=== PATIENT | male | born 1940 | race Caucasian/White ===

== ENCOUNTER 2016-06-30 02:26 | Emergency (ER) | payer MEDICARE, BC ==
[2016-06-30] MEDS ORDERED: Nitroglycerin 0.4 MG Tab.SL SL ONE (02:37)
[2016-06-30] MEDS ORDERED: Ondansetron 4 MG/2 ML SDV IV ONE (02:41)
[2016-06-30] MEDS ORDERED: Morphine 2 MG/ML Syringe IVPUSH ONE (02:41)
--- NOTE | 2016-06-30 02:41 | EDM.PDOC ---
{null, ED HPI GENERAL MEDICAL PROBLEM - General Chief Complaint: Cardiovascular Problem Stated Complaint: CHEST PAINS Time Seen by Provider: 06/30/16 02:39 Source of Information: Reports: Patient History Limitations: Reports: No Limitations - History of Present Illness INITIAL COMMENTS - FREE TEXT/NARRATIVE: woke up with palpitation and chest pain going up his jaw. 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 not helping. h/o CAD & A.F last stent 3 years ago, had stent prior and angio 1995. Anterior Chest Pain Score (Numeric/FACES): 5 - Related Data Allergies Allergy/AdvReac Type Severity Reaction Status Date / Time naproxen Allergy Hives Verified 06/30/16 02:51 propoxyphene Allergy Hives Verified 06/30/16 02:51 Home Meds: Home Meds Amiodarone HCl [Amiodarone HCl] 200 mg PO DAILY 01/10/14 [History] Aspirin [Children's Aspirin] 81 mg PO DAILY 01/10/14 [History] EPINEPHrine [Epipen] 0.3 mg IM ASDIRECTED PRN 01/10/14 [History] Fish Oil/Sun-3 Fatty Acids [Fish Oil] 2 cap PO DAILY 01/10/14 [History] LORazepam [Ativan] 1 mg PO DAILY PRN 01/10/14 [History] Metoprolol Tartrate [Lopressor] 25 mg PO BID 01/10/14 [History] Multivitamin [Multi Vitamin Daily] 1 tab PO DAILY PRN 01/10/14 [History] Omeprazole [Prilosec] 20 mg PO DAILY 01/10/14 [History] Rosuvastatin [Crestor] 40 mg PO DAILY 01/10/14 [History] Sildenafil [Viagra] 100 mg PO ASDIRECTED PRN 01/10/14 [History] Acetaminophen [Tylenol Arthritis Pain] 650 mg PO 01/16/14 [History] Fluocinolone Acetonide [Synalar 0.025% Cream] 15 gm .XX 01/16/14 [History] [id number]-Yplodoi-Vorb 149-Hyal [Glucosamine Chondroitin Complx] 1 each PO [History] Social & Family History - Tobacco Use Smoking Status *Q: Never Smoker Second Hand Smoke Exposure: No - Alcohol Use Days Per Week of Alcohol Use: 1 Number of Drinks Per Day: 1 Total Drinks Per Week: 1 - Recreational Drug Use Recreational Drug Use: No ED ROS GENERAL - Review of Systems Review Of Systems: ROS reveals no pertinent complaints other than HPI. ED EXAM, GENERAL - Physical Exam Exam: See Below Exam Limited By: No Limitations General Appearance: Alert, WD/WN, Anxious, Mild Distress Ears: Hearing Grossly Normal Throat/Mouth: Normal Voice, No Airway Compromise Head: Atraumatic Neck: Non-Tender, Full Range of Motion Respiratory/Chest: No Respiratory Distress Cardiovascular: Regular Rate, Rhythm GI/Abdominal: Soft, Non-Tender Neurological: Alert, Oriented, Normal Cognition, Normal Gait, No Motor/Sensory Deficits Psychiatric: Anxious Skin Exam: Warm, Dry Lymphatic: No Adenopathy Course - Vital Signs Last Recorded V/S: Last Vital Signs Temp 36.3 C 06/30/16 03:30 Pulse 70 06/30/16 03:30 Resp 16 06/30/16 03:30 BP 125/64 06/30/16 03:30 Pulse Ox 100 06/30/16 03:30 - Orders/Labs/Meds Orders: Active Orders 24 hr Category Date Time Status EKG Documentation Completion [RC] ROUTINE Care 06/30/16 06:00 Active EKG Documentation Completion [RC] STAT Care 06/30/16 02:32 Active Labs: Laboratory Tests 06/30/16 06/30/16 06/30/16 Range/Units 02:35 02:35 06:00 WBC 8.1 (5.0-10.0) 10^3/uL RBC 4.37 L (4.6-6.2) 10^6/uL Hgb 14.2 (14.0-18.0) g/dL Hct 42.2 (40.0-54.0) % MCV 96.6 (80-100) fL MCH 32.5 (27.0-34.0) pg MCHC 33.6 (33.0-35.0) g/dL Plt Count 115 L (150-450) 10^3/uL Neut % (Auto) 36.8 L (42.2-75.2) % Lymph % (Auto) 48.2 (20.5-50.1) % [place] % (Auto) 9.7 H (2-8) % Eos % (Auto) 5.1 H (1.0-3.0) % Baso % (Auto) 0.2 (0.0-1.0) % Sodium 140 (135-145) mmol/L Potassium 4.2 (3.6-5.0) mmol/L Chloride 104 (101-111) mmol/L Carbon Dioxide 27.0 (21.0-31.0) mmol/L Anion Gap 13.2 BUN 16 (7-18) mg/dL Creatinine 1.1 (0.6-1.3) mg/dL Est Cr Clr Drug Dosing 74.53 mL/min Estimated GFR (MDRD) > 60 BUN/Creatinine Ratio 14.54 Glucose 104 (74-105) mg/dL Calcium 9.5 (8.4-10.2) mg/dl Total Bilirubin 0.6 (0.2-1.0) mg/dL AST 25 (10-42) IU/L ALT 14 (10-60) IU/L Alkaline Phosphatase 58 (42-121) IU/L Troponin I < 0.02 < 0.02 (0.00-0.02) ng/ml Total Protein 7.4 (6.7-8.2) g/dl Albumin 4.3 (3.2-5.5) g/dl Globulin 3.1 Albumin/Globulin Ratio 1.39 Meds: Medications Discontinued Medications Generic Name Dose Route Start Last Admin Trade Name Freq PRN Reason Stop Dose Admin Hydromorphone HCl 1 mg 06/30/16 03:29 06/30/16 03:35 Dilaudid IVPUSH 06/30/16 03:30 1 mg ONETIME ONE Administration Hydromorphone HCl 1 mg 06/30/16 04:39 06/30/16 04:47 Dilaudid IVPUSH 06/30/16 04:40 1 mg ONETIME ONE Administration Lorazepam 1 mg 06/30/16 03:03 06/30/16 03:10 Ativan IVPUSH 06/30/16 03:04 1 mg ONETIME ONE Administration Lorazepam 1 mg 06/30/16 04:39 06/30/16 04:45 Ativan IVPUSH 06/30/16 04:40 1 mg ONETIME ONE Administration Morphine Sulfate 2 mg 06/30/16 02:41 06/30/16 02:49 Morphine IVPUSH 06/30/16 02:42 2 mg ONETIME ONE Administration Nitroglycerin 0.4 mg 06/30/16 02:37 06/30/16 02:40 Nitrostat SL 06/30/16 02:38 0.4 mg ONETIME ONE Administration Ondansetron HCl 4 mg 06/30/16 02:41 06/30/16 02:46 Zofran IV 06/30/16 02:42 4 mg ONETIME ONE Administration - Re-Assessments/Exams Free Text/Narrative Re-Assessment/Exam: 06/30/16 03:14 results discussed with Pt & spouse who states Pt been under lot of stress whole week. had 3 x funerals for close friends and one was from [facility] 06/30/16 06:44 re-exam: still in pain and IV dilaudid not lasting long enough. 06/30/16 07:[address] Hernandez @ who kindly accepted Pt. Departure - Departure Time of Disposition: 07:03 Disposition: DC/Tfer to Acute Hospital 02 Reason for Transfer *Q: Other Condition: good Clinical Impression: Acute coronary syndrome Forms: Interfacility Transfer EMTALA - My Orders Last 24 Hours: My Active Orders 06/30/16 02:32 EKG Documentation Completion [RC] STAT 06/30/16 06:00 EKG Documentation Completion [RC] ROUTINE - Assessment/Plan Last 24 Hours: My Active Orders 06/30/16 02:32 EKG Documentation Completion [RC] STAT 06/30/16 06:00 EKG Documentation Completion [RC] ROUTINE }
[2016-06-30 02:59] LABS: CHLORIDE,CL 104 mmol/L (101-111); SODIUM,NA 140 mmol/L (135-145)
[2016-06-30] MEDS ORDERED: LORazepam 2 MG/ML Syringe IVPUSH ONE ×2 (03:03→04:39)
[2016-06-30] MEDS ORDERED: HYDROmorphone 1 MG/ML Syringe IVPUSH ONE ×3 (03:29→07:04)
[2016-06-30 03:31] VITALS: BP 125/64
--- NOTE | 2016-07-02 10:59 | EKG ---
{null, 06/30/2016 - JUAN A PRUETT - 12-lead EKG showed done on 06/30/2016 at 2:27 shows normal sinus rhythm with heart rate of 67, MO interval of 159. No significant ST elevation or ST depression noted on this 12-lead EKG. Nonspecific ST changes noted on lead V1 and V2. [facility] /[id number] }
--- NOTE | 2016-07-02 13:51 | EKG ---
{null, 06/30/2016 - JUAN A PRUETT - TIME: 6:00 a.m. 12-lead EKG shows normal sinus rhythm with heart rate of 63. P waves noted on lead II. No significant ST elevation or ST depression noted on this 12-lead EKG. [facility] /[id number] }
== END 2016-06-30 07:30 ==
LOC: DL.ED 02:26
DX: I24.9 Acute ischemic heart disease, unspecified (principal); I48.91 Unspecified atrial fibrillation; I25.10 Atherosclerotic heart disease of native coronary artery without angina pectoris; Z88.8 Allergy status to other drugs, medicaments and biological substances; Z79.82 Long term (current) use of aspirin; Z79.899 Other long term (current) drug therapy
CPT/HCPCS: 36415; 71010; 80053; 84484; 85025; 93005; 93010; 96374; 96375; 96376; 99285; J1170; J2060; J2270; J2405; 99284; A9270-GY

== ENCOUNTER 2016-07-14 06:59 | Observation (INO) | payer MEDICARE, BC ==
[2016-07-14] MEDS: Sodium Chloride 0.9% 10 ML Syringe FLUSH PRN ×3 (07:33→11:16)
--- NOTE | 2016-07-14 07:37 | EDM.PDOC ---
ED HPI GENERAL MEDICAL PROBLEM - General Chief Complaint: Chest Pain Stated Complaint: CHEST PAIN Time Seen by Provider: 07/14/16 07:05 Source of Information: Reports: Patient, Old Records, RN, RN Notes Reviewed History Limitations: Reports: No Limitations - History of Present Illness INITIAL COMMENTS - FREE TEXT/NARRATIVE: Complaining of substernal chest pain developed this morning after patient woke with "room spin", dizziness with nausea. Patient became very anxious and had a prior attack so he came to the ER. HE took a nitroglycerin sublingual x1 and became even more dizzy. Patient states he was transferred from here 1 week ago for chest pain and elevated troponin but was discharged home after a negative workup at [facility]. He is scheduled for a cardiac stress test next week. Onset: Today Location: Reports: Chest Severity: Severe Improves with: Reports: None Worsens with: Reports: None Associated Symptoms: Reports: No Other Symptoms Chest Pain Score (Numeric/FACES): 8 - Related Data Allergies Allergy/AdvReac Type Severity Reaction Status Date / Time naproxen Allergy Hives Verified 08/19/16 18:57 propoxyphene Allergy Hives Verified 08/19/16 18:57 Home Meds: Home Meds EPINEPHrine [Epipen 2-Anthony] 0.3 mg IM ASDIRECTED PRN 01/10/14 [History] Fish Oil/[place]-3 Fatty Acids [Fish Oil 1,000 MG] 1 cap PO BID 01/10/14 [History] Metoprolol Tartrate [Lopressor] 25 mg PO BID 01/10/14 [History] Multivitamin [Multi-Vitamin Daily] 1 tab PO DAILY 01/10/14 [History] Omeprazole [Prilosec] 20 mg PO DAILY 01/10/14 [History] Rosuvastatin [Crestor] 40 mg PO DAILY 01/10/14 [History] Sildenafil [Viagra] 100 mg PO ASDIRECTED PRN 01/10/14 [History] Acetaminophen [Tylenol Arthritis Pain] 650 mg PO Q4HR PRN 01/16/14 [History] Fluocinolone Acetonide [Synalar 0.025% Cream] 15 gm .XX DAILY PRN 01/16/14 [ History] [id number]-[id number]-Frmj 149-Hyal [Glucosamine Chondroitin Complx] 1 each PO BID [History] Warfarin [Coumadin] 5 mg PO DAILY 07/14/16 [History] oxyCODONE HCl/Acetaminophen [oxyCODONE-Acetaminophen 5-325] 1 tab PO BID PRN 05/27 [History] Aspirin 81 mg PO DAILY tab.chew 07/15/16 [Rx] LORazepam [Ativan] 1 mg PO BID #30 tablet 07/15/16 [Rx] Methimazole 10 mg PO DAILY 07/16/16 [History] Nitroglycerin [Nitrostat] 0.4 mg SL ASDIRECTED 07/17/16 [History] Past Medical History Cardiovascular History: Reports: Afib, Angina, CAD, High Cholesterol, Hypertension Gastrointestinal History: Reports: GERD Endocrine/Metabolic History: Reports: Hyperthyroidism Social & Family History - Tobacco Use Smoking Status *Q: Former Smoker Used Tobacco, but Quit: No Second Hand Smoke Exposure: No - Caffeine Use Caffeine Use: Reports: Coffee - Alcohol Use Days Per Week of Alcohol Use: 5 Number of Drinks Per Day: 2 Total Drinks Per Week: 10 - Recreational Drug Use Recreational Drug Use: No ED ROS GENERAL - Review of Systems Review Of Systems: ROS reveals no pertinent complaints other than HPI. ED EXAM, GENERAL - Physical Exam Exam: See Below Exam Limited By: No Limitations General Appearance: Anxious Eye Exam: Bilateral Eye: Normal Inspection Ears: Normal External Exam, Normal Canal, Hearing Grossly Normal, Normal TMs Nose: Normal Inspection, Normal Mucosa, No Blood Throat/Mouth: Normal Inspection, Normal Lips, Normal Teeth, Normal Gums, Normal Oropharynx, Normal Voice, No Airway Compromise Head: Atraumatic, Normocephalic Neck: Normal Inspection, Supple, Non-Tender, Full Range of Motion Respiratory/Chest: No Respiratory Distress, Lungs Clear, Normal Breath Sounds, No Accessory Muscle Use, Chest Non-Tender Cardiovascular: Normal Peripheral Pulses, Regular Rate, Rhythm, No Edema, No Gallop, No JVD, No Murmur, No Rub GI/Abdominal: Normal Bowel Sounds, Soft, Non-Tender, No Organomegaly, No Distention, No Abnormal Bruit, No Mass (Male) Exam: Deferred Rectal (Males) Exam: Deferred Back Exam: Normal Inspection, Full Range of Motion, NT Extremities: Normal Inspection, Normal Range of Motion, Non-Tender, Normal Capillary Refill, No Pedal Edema Neurological: Other (lateral gaze nystagmus) Psychiatric: Other (very anxious.) Skin Exam: Warm, Dry, Intact, Normal Color, No Rash EKG INTERPRETATION EKG Date: 07/14/16 Time: 06:58 Rhythm: Other (sinus rhythm) Rate (Beats/Min): 84 [place]: LAD-Left [place] Deviation (borderline) Course - Vital Signs Last Recorded V/S: Last Vital Signs Temp 36.6 C 07/15/16 11:02 Pulse 65 07/15/16 11:02 Resp 20 07/15/16 11:02 BP 147/72 H 07/15/16 11:02 Pulse Ox 95 07/15/16 11:02 - Orders/Labs/Meds Labs: Laboratory Tests 07/14/16 07/14/16 07/14/16 Range/Units 07:06 07:06 07:06 WBC 6.6 (5.0-10.0) 10^3/uL RBC 4.47 L (4.6-6.2) 10^6/uL Hgb 14.3 (14.0-18.0) g/dL Hct 42.8 (40.0-54.0) % MCV 95.7 (80-100) fL MCH 32.0 (27.0-34.0) pg MCHC 33.4 (33.0-35.0) g/dL Plt Count 126 L (150-450) 10^3/uL Neut % (Auto) 37.5 L (42.2-75.2) % Lymph % (Auto) 49.1 (20.5-50.1) % [place] % (Auto) 7.9 (2-8) % Eos % (Auto) 5.2 H (1.0-3.0) % Baso % (Auto) 0.3 (0.0-1.0) % PT (9.0-12.0) SEC INR (0.9-1.2) D-Dimer, Quantitative 109 (0-400) ng/mL Sodium 140 (135-145) mmol/L Potassium 4.1 (3.6-5.0) mmol/L Chloride 105 (101-111) mmol/L Carbon Dioxide 24.0 (21.0-31.0) mmol/L Anion Gap 15.1 BUN 15 (7-18) mg/dL Creatinine 1.0 (0.6-1.3) mg/dL Est Cr Clr Drug Dosing TNP Estimated GFR (MDRD) > 60 BUN/Creatinine Ratio 15.00 Glucose 117 H (74-105) mg/dL Calcium 9.2 (8.4-10.2) mg/dl Total Bilirubin 0.5 (0.2-1.0) mg/dL AST 28 (10-42) IU/L ALT 16 (10-60) IU/L Alkaline Phosphatase 61 (42-121) IU/L Troponin I < 0.02 (0.00-0.02) ng/ml B-Natriuretic Peptide 47 (0-100) pg/ml Total Protein 7.2 (6.7-8.2) g/dl Albumin 4.1 (3.2-5.5) g/dl Globulin 3.1 Albumin/Globulin Ratio 1.32 Amylase 76 (28-100) U/L Lipase 45 (22-51) U/L // Range/Units 07:06 WBC (5.0-10.0) 10^3/uL RBC (4.6-6.2) 10^6/uL Hgb (14.0-18.0) g/dL Hct (40.0-54.0) % MCV (80-100) fL MCH (27.0-34.0) pg MCHC (33.0-35.0) g/dL Plt Count (150-450) 10^3/uL Neut % (Auto) (42.2-75.2) % Lymph % (Auto) (20.5-50.1) % [place] % (Auto) (2-8) % Eos % (Auto) (1.0-3.0) % Baso % (Auto) (0.0-1.0) % PT 10.8 (9.0-12.0) SEC INR 1.1 (0.9-1.2) D-Dimer, Quantitative (0-400) ng/mL Sodium (135-145) mmol/L Potassium (3.6-5.0) mmol/L Chloride (101-111) mmol/L Carbon Dioxide (21.0-31.0) mmol/L Anion Gap BUN (7-18) mg/dL Creatinine (0.6-1.3) mg/dL Est Cr Clr Drug Dosing Estimated GFR (MDRD) BUN/Creatinine Ratio Glucose (74-105) mg/dL Calcium (8.4-10.2) mg/dl Total Bilirubin (0.2-1.0) mg/dL AST (10-42) IU/L ALT (10-60) IU/L Alkaline Phosphatase (42-121) IU/L Troponin I (0.00-0.02) ng/ml B-Natriuretic Peptide (0-100) pg/ml Total Protein (6.7-8.2) g/dl Albumin (3.2-5.5) g/dl Globulin Albumin/Globulin Ratio Amylase (28-100) U/L Lipase (22-51) U/L Meds: Medications Discontinued Medications Generic Name Dose Route Start Last Admin Trade Name Freq PRN Reason Stop Dose Admin Acetaminophen 650 mg 07/14/16 10:31 07/15/16 00:02 Tylenol PO 650 mg Q4H PRN Administration Pain (Mild 1-3)/fever Al Hydroxide/Mg Hydroxide 30 ml 07/14/16 07:50 07/14/16 07:53 Gi Cocktail PO 07/14/16 07:51 30 ml ONETIME ONE Administration Aspirin 81 mg 07/15/16 09:00 07/15/16 10:30 Aspirin PO 81 mg DAILY BRYAN Administration Dexamethasone 12 mg 07/14/16 09:44 07/14/16 09:53 Dexamethasone IVPUSH 07/14/16 09:45 12 mg ONETIME ONE Administration Docusate Sodium 100 mg 07/15/16 10:32 07/15/16 11:12 Colace PO 07/15/16 10:33 100 mg ONETIME ONE Administration Enoxaparin Sodium 40 mg 07/15/16 09:00 07/15/16 10:32 Lovenox SUBCUT 40 mg DAILY BRYAN Administration Sodium Chloride 1,000 mls @ 999 mls/hr 07/14/16 09:03 07/14/16 09:27 Normal Saline IV 07/14/16 10:03 999 mls/hr .BOLUS ONE Administration Sodium Chloride 1,000 mls @ 75 mls/hr 07/14/16 10:45 07/15/16 09:40 Normal Saline IV 75 mls/hr ASDIRECTED BRYAN Infusion Pantoprazole Sodium 40 mg/ 100 mls @ 200 mls/hr 07/14/16 10:42 07/14/16 11:14 Sodium Chloride IV 07/14/16 11:11 200 mls/hr DAILY ONE Administration Lorazepam 1 mg 07/14/16 09:45 07/14/16 09:53 Ativan IVPUSH 07/14/16 09:46 1 mg ONETIME ONE Administration Lorazepam 1 mg 07/14/16 21:00 07/15/16 10:30 Ativan PO 1 mg BID BRYAN Administration Meclizine HCl 25 mg 07/14/16 09:44 07/14/16 09:53 Antivert PO 07/14/16 09:45 25 mg ONETIME ONE Administration Metoprolol Tartrate 25 mg 07/14/16 21:00 07/15/16 10:30 Lopressor PO 25 mg BID BRYAN Administration Morphine Sulfate 4 mg 07/14/16 07:57 07/14/16 08:06 Morphine IVPUSH 07/14/16 07:58 4 mg ONETIME ONE Administration Morphine Sulfate 4 mg 07/14/16 09:03 07/14/16 09:27 Morphine IVPUSH 07/14/16 09:04 4 mg ONETIME ONE Administration Morphine Sulfate 2 mg 07/14/16 10:31 07/15/16 00:03 Morphine IVPUSH 2 mg Q2H PRN Administration Pain (severe 7-10) Fish Oil/Darby-3 2 cap 07/15/16 09:00 Fatty Acids [Fish PO Oil 1,000 Mg] 2 Cap DAILY [facility] Non-Formulary Medication 15 gm 07/14/16 10:40 Fluocinolone Acetonide [Synalar 0.025% Cream] .XX DAILY PRN Other Ondansetron HCl 4 mg 07/14/16 07:57 07/14/16 08:06 Zofran IV 07/14/16 07:58 4 mg ONETIME ONE Administration Oxycodone HCl 5 mg 07/14/16 10:31 07/14/16 21:03 Oxycodone PO 5 mg Q4H PRN Administration Pain (moderate 4-6) Rosuvastatin Calcium 40 mg 07/15/16 09:00 07/15/16 10:29 Crestor PO 40 mg DAILY BRYAN Administration Sodium Chloride 10 ml 07/14/16 07:24 07/14/16 11:16 Saline Flush FLUSH 10 ml ASDIRECTED PRN Administration Keep Vein Open Warfarin Sodium 5 mg 07/14/16 15:00 07/15/16 14:33 Coumadin PO 5 mg DAILY@1400 BRYAN Administration Warfarin Sodium 1 mg 07/15/16 14:18 07/15/16 14:33 Coumadin PO 07/15/16 14:19 1 mg ONETIME ONE Administration Departure - Departure Time of Disposition: 10:27 (Admit to Dr. Ugalde) Disposition: Refer to Observation Condition: Fair Clinical Impression: Atypical chest pain, Vertigo
[2016-07-14 07:42] LABS: CHLORIDE,CL 105 mmol/L (101-111); SODIUM,NA 140 mmol/L (135-145)
[2016-07-14] MEDS ORDERED: GI Cocktail Oral Solution 30 ML PO ONE (07:50)
[2016-07-14] MEDS ORDERED: Ondansetron 4 MG/2 ML SDV IV ONE (07:57)
[2016-07-14] MEDS ORDERED: Morphine 4 MG/ML Syringe IVPUSH ONE ×2 (07:57→09:03)
[2016-07-14] MEDS ORDERED: Sodium Chloride 0.9% 1,000 ML IV ONE (09:03)
[2016-07-14] MEDS ORDERED: Dexamethasone 4 MG/ML SDV IVPUSH ONE (09:44)
[2016-07-14] MEDS ORDERED: Meclizine 12.5 MG Tab PO ONE (09:44)
[2016-07-14] MEDS ORDERED: LORazepam 2 MG/ML Syringe IVPUSH ONE (09:45)
[2016-07-14] MEDS ORDERED: Acetaminophen 325 MG Tab PO PRN (10:31)
[2016-07-14] MEDS ORDERED: FLUOCINOLONE ACETONIDE PRN (10:40)
[2016-07-14] MEDS ORDERED: Pantoprazole 40 MG in Sodium Chloride 0.9% 100 ML IV ONE (10:42)
[2016-07-14] MEDS: Sodium Chloride 0.9% 1,000 ML IV SCH (11:15)
--- NOTE | 2016-07-14 12:17 | HP ---
CHIEF COMPLAINT: Chest pain. HISTORY OF PRESENT ILLNESS: The patient is a 75-year-old gentleman who was admitted through the emergency room because of chest pain, dizziness, anxiety, and panic attack. The patient mentioned that this morning, he had an episode of chest pain, which radiated to his jaw. He took some sublingual nitroglycerin and did not go away and then he got anxious and gets shaky and started getting dizzy and because of this, he presented to the emergency room. Cardiac workup came back unremarkable, but because of his anxiety and dizziness, he was then admitted for observation. PAST MEDICAL HISTORY: The patient was recently transferred to [facility] about a week ago because of chest pain, and he had troponin check serially and came back negative, and he was discharged home and is scheduled to have a stress test this coming week. PAST MEDICAL HISTORY: Atrial fibrillation, on anticoagulation therapy with Coumadin, history of coronary artery disease, dyslipidemia, hypertension, and gastroesophageal reflux. FAMILY HISTORY: Noncontributory. SOCIAL HISTORY: The patient used to smoke, but has not smoked for the last several years, and occasional beer drinker. REVIEW OF SYSTEMS: The patient denies any fever, chills, focal weakness, slurring of speech, headache, abdominal pain, melena, hematochezia, or any bleeding tendencies. HOME MEDICATION: 1. Coumadin. 2. Viagra. 3. Crestor. 4. Omeprazole. 5. Multivitamins. 6. Metoprolol. 7. Lorazepam. 8. Fish oil. 9. Aspirin. 10.Tylenol. ALLERGIES: Naproxen and propoxyphene. PHYSICAL EXAMINATION: General: The patient is alert and oriented, not in any acute distress. SHEENT: Normocephalic. There are pink palpebral conjunctivae. Sclerae anicteric. No JVD. No lymphadenopathy. Heart: Regular rate and rhythm. Normal S1 and S2. No gallops. No rubs. Lungs: Equal bilaterally. No crackles. No wheezing. Chest wall is remarkable for some mild reproducible tenderness on the sternal area on palpation. Abdomen: Obese, soft, and nontender. Bowel sounds positive. Extremities: Negative for any significant pedal edema. No calf tenderness. No signs of cellulitis. LABORATORY DATA: CBC; WBC 6.6, hemoglobin is 14.3, hematocrit is 42.8, and platelet is 126. Protime is 10.8, INR of 1.1. D-dimer is 109. Comp panel, glucose is 117. The rest of the panel unremarkable. BNP is 47. Troponin is less than 0.02. Amylase and lipase are within normal limits. ADMITTING DIAGNOSES: 1. Dizziness most likely from anxiety/hyperventilation. 2. Anxiety. 3. Chest pain. 4. History of coronary artery disease. 5. Atrial fibrillation. 6. Obesity. 7. Gastroesophageal reflux. TREATMENT PLAN: The patient is going to be admitted to observation. We will put him on telemetry. We will recheck troponin, and I am going to give him lorazepam on a scheduled basis and the rest of the management as necessary. The patient is a full code. [facility] /[id number]
[2016-07-14] MEDS: Morphine 2 MG/ML Syringe IVPUSH PRN ×3 (13:41→19:42)
[2016-07-14] MEDS: oxyCODONE 5 MG Tab PO PRN ×2 (15:03→21:03)
[2016-07-14] MEDS: Warfarin 5 MG Tab PO SCH (15:04)
[2016-07-14] MEDS: LORazepam 1 MG Tab PO SCH (21:04)
[2016-07-14] MEDS: Metoprolol Tartrate 25 MG Tab PO SCH (21:05)
[2016-07-15] MEDS: Morphine 2 MG/ML Syringe IVPUSH PRN (00:03)
[2016-07-15] MEDS: Sodium Chloride 0.9% 1,000 ML IV SCH (00:29)
[2016-07-15] MEDS ORDERED: FISH OIL PO SCH (09:00)
[2016-07-15] MEDS ORDERED: OMEGA PO SCH (09:00)
[2016-07-15] MEDS ORDERED: FATTY ACIDS PO SCH (09:00)
[2016-07-15] MEDS ORDERED: Enoxaparin 40 MG/0.4 ML Syringe SUBCUT SCH (09:00)
[2016-07-15] MEDS ORDERED: Rosuvastatin 10 MG Tab PO SCH (09:00)
[2016-07-15] MEDS ORDERED: Aspirin 81 MG Tab.Chew PO SCH (09:00)
[2016-07-15] MEDS: LORazepam 1 MG Tab PO SCH (10:30)
[2016-07-15] MEDS: Metoprolol Tartrate 25 MG Tab PO SCH (10:30)
[2016-07-15] MEDS ORDERED: Docusate Sodium 100 MG Cap PO ONE (10:32)
[2016-07-15 11:03] VITALS: BP 147/72
[2016-07-15] MEDS: Warfarin 5 MG Tab PO SCH (14:33)
--- NOTE | 2016-07-16 10:07 | PCM.DCSUM1 ---
Discharge Summary - Hospital Course Brief History: patient is a 75-year-old , was admitted here because of chest pain. He has a past medical history of coronary artery disease. He was admitted recently in [facility] for the same problem, and was discharged next day. he has tried taking his nitroglycerin in during the chest pain episode however with no relief.because of this persistent chest pain, he was sent to the emergency room.no recent trauma to the chest, no fever, cough or shortness of breath. Has been having problems with anxiety, and might be contributing to the current problem as he recently visited a of a coworker. - Discharge Data Discharge Date: 07/15/16 Discharge Disposition: Home, Self-Care 01 Condition: Good - Discharge Diagnosis/Problem(s) (1) Atypical chest pain SNOMED Code(s): 375449880 ICD Code: R07.89 - OTHER CHEST PAIN Status: Acute - Patient Summary/Data Hospital Course: patient was admitted in a medical surgical bed. His troponins were monitored and all of them came back normal. There has been no significant tracings on the telemetry.he remained hemodynamically stable.his medications were continued. His warfarin 5 mg was also continued for his atrial fibrillation. However, INR was still at 1.1. He reports that he has been taking the 5 mg since 4 days prior to discharge. No new issues arise during the admission. - Patient Instructions Diet: Heart Healthy Diet Activity: As Tolerated Driving: Do Not Drive Showering/Bathing: May Shower Other/Special Instructions: INR is 1.1, increase warfarin to 6mg daily and recheck when you follow up with Dr. Berger this week. TO come back to the emergency room if with emergent health concerns. - Discharge Plan Prescriptions/Med Rec: LORazepam [Ativan] 1 mg PO BID #30 tablet Warfarin [Coumadin] 1 mg PO DAILY 7 Days Home Medications: Home Meds EPINEPHrine [Epipen 2-Anthony] 0.3 mg IM ASDIRECTED PRN 01/10/14 [History] Fish Oil/[place]-3 Fatty Acids [Fish Oil 1,000 MG] 2 cap PO DAILY 01/10/14 [ History] Metoprolol Tartrate [Lopressor] 25 mg PO BID 01/10/14 [History] Multivitamin [Multi-Vitamin Daily] 1 tab PO DAILY 01/10/14 [History] Omeprazole [Prilosec] 20 mg PO DAILY 01/10/14 [History] Rosuvastatin [Crestor] 40 mg PO DAILY 01/10/14 [History] Sildenafil [Viagra] 100 mg PO ASDIRECTED PRN 01/10/14 [History] Acetaminophen [Tylenol Arthritis Pain] 650 mg PO Q4HR PRN 01/16/14 [History] Fluocinolone Acetonide [Synalar 0.025% Cream] 15 gm .XX DAILY PRN 01/16/14 [ History] Dofbqjee-Pohugbp-Rzsj 149-Hyal [Glucosamine Chondroitin Complx] 1 each PO BID [History] Warfarin [Coumadin] 5 mg PO DAILY 07/14/16 [History] oxyCODONE HCl/Acetaminophen [oxyCODONE-Acetaminophen 5-325] 1 tab PO QID PRN 05/27 [History] Aspirin 81 mg PO DAILY tab.chew 07/15/16 [Rx] LORazepam [Ativan] 1 mg PO BID #30 tablet 07/15/16 [Rx] Warfarin [Coumadin] 1 mg PO DAILY 7 Days 07/15/16 [Rx] Patient Handouts: Vitamin K Foods and Warfarin, Generalized Anxiety Disorder, Warfarin: What You Need to Know, Peripheral Neuropathy, Warfarin tablets, Nonspecific Chest Pain, Sute-kf-Isnd, Lorazepam tablets, Narcolepsy Referrals: PCP,Bassam [Primary Care Provider] - - Discharge Summary/Plan Comment DC Time >30 min.: No Discharge Summary/Plan Comment: patient to followup with his primary care provider after discharge. Advised to take Lorazepam twice a day and to monitor for any intolerance. he also has a appointment with neurology for the possible neuropathy on his legs.advised also discussed possible sleeping disorder that he has been having despite using his sleep apnea machine. changes to be made on his warfarin, increased to 6 mg and have this rechecked on Friday at the clinic. A new prescription was made, of warfarin 1 mg in addition to his warfarin 5 mg. To come back to emergency room if with emergent health concerns. - General Info Subjective Update: patient is able to sleep well overnight, there has been no recurrence of the chest pain. he feels better today. he has a scheduled stress test tomorrow. - Patient Data Vitals - Most Recent: Last Vital Signs Temp 36.6 C 07/15/16 11:02 Pulse 65 07/15/16 11:02 Resp 20 07/15/16 11:02 BP 147/72 H 07/15/16 11:02 Pulse Ox 95 07/15/16 11:02 Weight - Most Recent: 142.609 kg Med Orders - Current: Current Medications Discontinued Medications Acetaminophen (Tylenol) 650 mg PO Q4H PRN PRN Reason: Pain (Mild 1-3)/fever Last Admin: 07/15/16 00:02 Dose: 650 mg Al Hydroxide/Mg Hydroxide (Gi Cocktail) 30 ml PO ONETIME ONE Stop: 07/14/16 07:51 Last Admin: 07/14/16 07:53 Dose: 30 ml Aspirin (Aspirin) 81 mg PO DAILY [facility] Last Admin: 07/15/16 10:30 Dose: 81 mg Dexamethasone (Dexamethasone) 12 mg IVPUSH ONETIME ONE Stop: 07/14/16 09:45 Last Admin: 07/14/16 09:53 Dose: 12 mg Docusate Sodium (Colace) 100 mg PO ONETIME ONE Stop: 07/15/16 10:33 Last Admin: 07/15/16 11:12 Dose: 100 mg Enoxaparin Sodium (Lovenox) 40 mg SUBCUT DAILY [facility] Last Admin: 07/15/16 10:32 Dose: 40 mg Sodium Chloride (Normal Saline) 1,000 mls @ 999 mls/hr IV .BOLUS ONE Stop: 07/14/16 10:03 Last Admin: 07/14/16 09:27 Dose: 999 mls/hr Sodium Chloride (Normal Saline) 1,000 mls @ 75 mls/hr IV ASDIRECTED [facility] Last Infusion: 07/15/16 09:40 Dose: 75 mls/hr Pantoprazole Sodium 40 mg/ (Sodium Chloride) 100 mls @ 200 mls/hr IV DAILY ONE Stop: 07/14/16 11:11 Last Admin: 07/14/16 11:14 Dose: 200 mls/hr Lorazepam (Ativan) 1 mg IVPUSH ONETIME ONE Stop: 07/14/16 09:46 Last Admin: 07/14/16 09:53 Dose: 1 mg Lorazepam (Ativan) 1 mg PO BID [facility] Last Admin: 07/15/16 10:30 Dose: 1 mg Meclizine HCl (Antivert) 25 mg PO ONETIME ONE Stop: 07/14/16 09:45 Last Admin: 07/14/16 09:53 Dose: 25 mg Metoprolol Tartrate (Lopressor) 25 mg PO BID [facility] Last Admin: 07/15/16 10:30 Dose: 25 mg Morphine Sulfate (Morphine) 4 mg IVPUSH ONETIME ONE Stop: 07/14/16 07:58 Last Admin: 07/14/16 08:06 Dose: 4 mg Morphine Sulfate (Morphine) 4 mg IVPUSH ONETIME ONE Stop: 07/14/16 09:04 Last Admin: 07/14/16 09:27 Dose: 4 mg Morphine Sulfate (Morphine) 2 mg IVPUSH Q2H PRN PRN Reason: Pain (severe 7-10) Last Admin: 07/15/16 00:03 Dose: 2 mg Fish Oil/[place]-3 Fatty Acids [Fish Oil 1,000 Mg] 2 Cap 2 cap PO DAILY [facility] Non-Formulary Medication (Fluocinolone Acetonide [Synalar 0.025% Cream]) 15 gm .XX DAILY PRN PRN Reason: Other Ondansetron HCl (Zofran) 4 mg IV ONETIME ONE Stop: 07/14/16 07:58 Last Admin: 07/14/16 08:06 Dose: 4 mg Oxycodone HCl (Oxycodone) 5 mg PO Q4H PRN PRN Reason: Pain (moderate 4-6) Last Admin: 07/14/16 21:03 Dose: 5 mg Rosuvastatin Calcium (Crestor) 40 mg PO DAILY [facility] Last Admin: 07/15/16 10:29 Dose: 40 mg Sodium Chloride (Saline Flush) 10 ml FLUSH ASDIRECTED PRN PRN Reason: Keep Vein Open Last Admin: 07/14/16 11:16 Dose: 10 ml Warfarin Sodium (Coumadin) 5 mg PO DAILY@1400 [facility] Last Admin: 07/15/16 14:33 Dose: 5 mg Warfarin Sodium (Coumadin) 1 mg PO ONETIME ONE Stop: 07/15/16 14:19 Last Admin: 07/15/16 14:33 Dose: 1 mg - Exam General: Reports: alert, oriented Lungs: Reports: Clear to auscultation, Normal respiratory effort Abdomen: Reports: bowel sounds present, soft, no tenderness Neurological: Reports: no new focal deficit Psy/Mental Status: Reports: alert, normal affect, normal mood *Q Meaningful Use (DIS) - VTE *Q VTE Criteria *Q: - Stroke *Q Stroke Criteria *Q: - AMI *Q AMI Criteria *Q:
--- NOTE | 2016-07-16 12:05 | EKG ---
07/14/2016- JUAN A PRUETT - EKG done on a 75-year-old male, showing sinus rhythm with a heart rate of 84 beats per minute. No acute ST-T wave changes. Normal intervals. [facility] /[id number] MTDD
== END 2016-07-15 15:10 | disposition home or self-care (01) ==
LOC: DL.ED 06:59 → DL.MS 10:31
PROVIDERS: ADMIT Internal Medicine; ATTEND Internal Medicine
DX: R07.89 Other chest pain (principal); E78.5 Hyperlipidemia, unspecified; I10 Essential (primary) hypertension; K21.9 Gastro-esophageal reflux disease without esophagitis; Z86.79 Personal history of other diseases of the circulatory system; Z87.891 Personal history of nicotine dependence; Z88.8 Allergy status to other drugs, medicaments and biological substances; Z79.82 Long term (current) use of aspirin; Z79.01 Long term (current) use of anticoagulants; E66.9 Obesity, unspecified; I48.91 Unspecified atrial fibrillation; Z79.899 Other long term (current) drug therapy
CPT/HCPCS: 36415; 71010; 80053; 82150; 83690; 83880; 84484; 85025; 85379; 85610; 93005; 93010; 96361; 96365; 96375; 96376; 99285; A9270; C9113; G0378; J1100; J1650; J2060; J2270; J2405; J7030; J7050; 96374; 99284

== ENCOUNTER 2016-08-19 18:34 | Emergency (ER) | payer MEDICARE, BC ==
[2016-08-19] MEDS ORDERED: Aspirin 81 MG Tab.Chew PO ONE (18:48)
[2016-08-19] MEDS ORDERED: LORazepam 2 MG/ML Syringe IVPUSH ONE (18:48)
--- NOTE | 2016-08-19 18:52 | EDM.PDOC ---
ED HPI GENERAL MEDICAL PROBLEM - General Chief Complaint: Chest Pain Stated Complaint: CHEST PAINS Time Seen by Provider: 08/19/16 18:50 Source of Information: Reports: Patient History Limitations: Reports: No Limitations - History of Present Illness INITIAL COMMENTS - FREE TEXT/NARRATIVE: c/o recurrent h/o sudden onset mid chest pain going up his jaw. occurred while eating dinner tonight. saw Dr Schwab at clinic today and had schedule for repeat angio. Treatments QUALITY MANAGER: Reports: EKG, IV/IO, Oxygen Chest Pain Score (Numeric/FACES): 9 - Related Data Allergies Allergy/AdvReac Type Severity Reaction Status Date / Time naproxen Allergy Hives Verified 08/19/16 18:57 propoxyphene Allergy Hives Verified 08/19/16 18:57 Home Meds: Home Meds EPINEPHrine [Epipen 2-Anthony] 0.3 mg IM ASDIRECTED PRN 01/10/14 [History] Fish Oil/[place]-3 Fatty Acids [Fish Oil 1,000 MG] 1 cap PO BID 01/10/14 [History] Metoprolol Tartrate [Lopressor] 25 mg PO BID 01/10/14 [History] Multivitamin [Multi-Vitamin Daily] 1 tab PO DAILY 01/10/14 [History] Omeprazole [Prilosec] 20 mg PO DAILY 01/10/14 [History] Rosuvastatin [Crestor] 40 mg PO DAILY 01/10/14 [History] Sildenafil [Viagra] 100 mg PO ASDIRECTED PRN 01/10/14 [History] Acetaminophen [Tylenol Arthritis Pain] 650 mg PO Q4HR PRN 01/16/14 [History] Fluocinolone Acetonide [Synalar 0.025% Cream] 15 gm .XX DAILY PRN 01/16/14 [ History] Kdotzzpp-Nylnefa-Mvys 149-Hyal [Glucosamine Chondroitin Complx] 1 each PO BID [History] Warfarin [Coumadin] 5 mg PO DAILY 07/14/16 [History] oxyCODONE HCl/Acetaminophen [oxyCODONE-Acetaminophen 5-325] 1 tab PO BID PRN 05/27 [History] Aspirin 81 mg PO DAILY tab.chew 07/15/16 [Rx] LORazepam [Ativan] 1 mg PO BID #30 tablet 07/15/16 [Rx] Methimazole 10 mg PO DAILY 07/16/16 [History] Nitroglycerin [Nitrostat] 0.4 mg SL ASDIRECTED 07/17/16 [History] Past Medical History HEENT History: Reports: Impaired Vision Cardiovascular History: Reports: Afib, Angina, CAD, High Cholesterol, Hypertension Respiratory History: Reports: None Gastrointestinal History: Reports: GERD Genitourinary History: Reports: None Musculoskeletal History: Reports: None Neurological History: Reports: None Psychiatric History: Reports: None Endocrine/Metabolic History: Reports: Hyperthyroidism Hematologic History: Reports: None Immunologic History: Reports: None Oncologic (Cancer) History: Reports: None Dermatologic History: Reports: None - Infectious Disease History Infectious Disease History: Reports: None - Past Surgical History Head Surgeries/Procedures: Reports: None Social & Family History - Family History Family Medical History: Noncontributory - Tobacco Use Smoking Status *Q: Former Smoker Used Tobacco, but Quit: No Second Hand Smoke Exposure: No - Caffeine Use Caffeine Use: Reports: Coffee - Alcohol Use Days Per Week of Alcohol Use: 5 Number of Drinks Per Day: 2 Total Drinks Per Week: 10 - Recreational Drug Use Recreational Drug Use: No ED ROS GENERAL - Review of Systems Review Of Systems: ROS reveals no pertinent complaints other than HPI. ED EXAM, GENERAL - Physical Exam Exam: See Below Exam Limited By: No Limitations General Appearance: Alert, WD/WN, Anxious, Mild Distress Ears: Hearing Grossly Normal Throat/Mouth: Normal Voice, No Airway Compromise Head: Atraumatic Neck: Non-Tender, Full Range of Motion Respiratory/Chest: No Respiratory Distress, Chest Non-Tender Cardiovascular: Regular Rate, Rhythm GI/Abdominal: Soft, Non-Tender Neurological: Alert, Oriented, Normal Cognition, Normal Gait, No Motor/Sensory Deficits Psychiatric: Anxious Skin Exam: Warm, Dry Lymphatic: No Adenopathy Course - Vital Signs Last Recorded V/S: Last Vital Signs Temp Pulse 64 08/19/16 18:51 Resp 16 08/19/16 18:51 BP Pulse Ox 97 08/19/16 18:51 - Orders/Labs/Meds Orders: Active Orders 24 hr Category Date Time Status EKG Documentation Completion [RC] STAT Care 08/19/16 18:43 Active Labs: Laboratory Tests 08/19/16 08/19/16 08/19/16 Range/Units 18:43 18:43 18:43 WBC 9.6 (5.0-10.0) 10^3/uL RBC 4.16 L (4.6-6.2) 10^6/uL Hgb 13.2 L (14.0-18.0) g/dL Hct 40.1 (40.0-54.0) % MCV 96.4 (80-100) fL MCH 31.7 (27.0-34.0) pg MCHC 32.9 L (33.0-35.0) g/dL Plt Count 116 L (150-450) 10^3/uL Neut % (Auto) 38.2 L (42.2-75.2) % Lymph % (Auto) 52.4 H (20.5-50.1) % Dunn % (Auto) 6.1 (2-8) % Eos % (Auto) 3.0 (1.0-3.0) % Baso % (Auto) 0.3 (0.0-1.0) % PT (9.0-12.0) SEC INR (0.9-1.2) D-Dimer, Quantitative < 100 (0-400) ng/mL Sodium 141 (135-145) mmol/L Potassium 3.9 (3.6-5.0) mmol/L Chloride 103 (101-111) mmol/L Carbon Dioxide 25.0 (21.0-31.0) mmol/L Anion Gap 16.9 BUN 15 (7-18) mg/dL Creatinine 1.2 (0.6-1.3) mg/dL Est Cr Clr Drug Dosing 68.32 mL/min Estimated GFR (MDRD) 59 BUN/Creatinine Ratio 12.50 Glucose 102 (74-105) mg/dL Calcium 9.0 (8.4-10.2) mg/dl Total Bilirubin 0.5 (0.2-1.0) mg/dL AST 26 (10-42) IU/L ALT 16 (10-60) IU/L Alkaline Phosphatase 55 (42-121) IU/L Troponin I < 0.02 (0.00-0.02) ng/ml B-Natriuretic Peptide 59 (0-100) pg/ml Total Protein 7.0 (6.7-8.2) g/dl Albumin 4.1 (3.2-5.5) g/dl Globulin 2.9 Albumin/Globulin Ratio 1.41 08/19/16 Range/Units 18:43 WBC (5.0-10.0) 10^3/uL RBC (4.6-6.2) 10^6/uL Hgb (14.0-18.0) g/dL Hct (40.0-54.0) % MCV (80-100) fL MCH (27.0-34.0) pg MCHC (33.0-35.0) g/dL Plt Count (150-450) 10^3/uL Neut % (Auto) (42.2-75.2) % Lymph % (Auto) (20.5-50.1) % Dunn % (Auto) (2-8) % Eos % (Auto) (1.0-3.0) % Baso % (Auto) (0.0-1.0) % PT 19.8 H (9.0-12.0) SEC INR 2.0 H (0.9-1.2) D-Dimer, Quantitative (0-400) ng/mL Sodium (135-145) mmol/L Potassium (3.6-5.0) mmol/L Chloride (101-111) mmol/L Carbon Dioxide (21.0-31.0) mmol/L Anion Gap BUN (7-18) mg/dL Creatinine (0.6-1.3) mg/dL Est Cr Clr Drug Dosing mL/min Estimated GFR (MDRD) BUN/Creatinine Ratio Glucose (74-105) mg/dL Calcium (8.4-10.2) mg/dl Total Bilirubin (0.2-1.0) mg/dL AST (10-42) IU/L ALT (10-60) IU/L Alkaline Phosphatase (42-121) IU/L Troponin I (0.00-0.02) ng/ml B-Natriuretic Peptide (0-100) pg/ml Total Protein (6.7-8.2) g/dl Albumin (3.2-5.5) g/dl Globulin Albumin/Globulin Ratio Meds: Medications Discontinued Medications Generic Name Dose Route Start Last Admin Trade Name Freq PRN Reason Stop Dose Admin Hydrocodone Bitart/Acetaminophen 1 tab 08/19/16 19:03 08/19/16 19:11 [place] 325-10 Mg PO 08/19/16 19:04 1 tab ONETIME ONE Administration Aspirin 324 mg 08/19/16 18:48 08/19/16 18:54 Aspirin PO 08/19/16 18:49 324 mg ONETIME ONE Administration Lorazepam 2 mg 08/19/16 18:48 08/19/16 18:56 Ativan IVPUSH 08/19/16 18:49 2 mg ONETIME ONE Administration Morphine Sulfate 2 mg 08/19/16 19:38 08/19/16 19:43 Morphine IVPUSH 08/19/16 19:39 2 mg ONETIME ONE Administration - Re-Assessments/Exams Free Text/Narrative Re-Assessment/Exam: 08/19/16 20:[address] Delgadillo who kindly accepted Pt Departure - Departure Time of Disposition: 20:28 Disposition: DC/Tfer to Acute Hospital 02 Reason for Transfer *Q: Other Condition: Fair Clinical Impression: Acute coronary syndrome Forms: Interfacility Transfer EMTALA - My Orders Last 24 Hours: My Active Orders 08/19/16 18:43 EKG Documentation Completion [RC] STAT - Assessment/Plan Last 24 Hours: My Active Orders 08/19/16 18:43 EKG Documentation Completion [RC] STAT
[2016-08-19] MEDS ORDERED: Acetaminophen/HYDROcodone 325-10 MG Tab PO ONE (19:03)
[2016-08-19 19:09] LABS: CHLORIDE,CL 103 mmol/L (101-111); SODIUM,NA 141 mmol/L (135-145)
[2016-08-19] MEDS ORDERED: Morphine 2 MG/ML Syringe IVPUSH ONE (19:38)
[2016-08-19] MEDS ORDERED: HYDROmorphone 1 MG/ML Syringe IVPUSH ONE (20:27)
[2016-08-19 21:05] VITALS: BP 110/52
--- NOTE | 2016-08-20 12:25 | EKG ---
08/19/2016 - JUAN A PRUETT - A 12-lead EKG shows normal sinus rhythm with atrial premature complex. No significant ST elevation or ST depression noted on this 12-lead EKG. Heart rate of 65. [facility] /[id number]
== END 2016-08-19 21:06 ==
LOC: DL.ED 18:34
DX: I24.9 Acute ischemic heart disease, unspecified (principal); I48.91 Unspecified atrial fibrillation; E78.00 Pure hypercholesterolemia, unspecified; I10 Essential (primary) hypertension; K21.9 Gastro-esophageal reflux disease without esophagitis; E05.90 Thyrotoxicosis, unspecified without thyrotoxic crisis or storm; I25.10 Atherosclerotic heart disease of native coronary artery without angina pectoris; Z87.891 Personal history of nicotine dependence; Z88.8 Allergy status to other drugs, medicaments and biological substances; Z79.899 Other long term (current) drug therapy
CPT/HCPCS: 36415; 80053; 83880; 84484; 85025; 85379; 85610; 93005; 93010; 96374; 96375; 99285; A9270; J1170; J2060; J2270

== ENCOUNTER 2016-08-25 00:53 | Emergency (ER) | payer MEDICARE, BC ==
[2016-08-25 00:59] VITALS: BP 122/71
[2016-08-25] MEDS ORDERED: HYDROmorphone 1 MG/ML Syringe IVPUSH ONE (01:03)
[2016-08-25] MEDS ORDERED: Ondansetron 4 MG/2 ML SDV IV ONE (01:03)
[2016-08-25] MEDS ORDERED: GI Cocktail Oral Solution 30 ML PO ONE (01:05)
--- NOTE | 2016-08-25 01:08 | EDM.PDOC ---
ED HPI GENERAL MEDICAL PROBLEM - General Chief Complaint: Chest Pain Stated Complaint: CHEST PAINS Time Seen by Provider: 08/25/16 01:03 Source of Information: Reports: Patient History Limitations: Reports: No Limitations - History of Present Illness INITIAL COMMENTS - FREE TEXT/NARRATIVE: sudden onset sharp stabbing chest pain going up his jaw, took NTG with '0', took ativan with '0'. had normal angio Friday. was sent to [facility] Friday had r/o GA but all's well. 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: Nitroglycerin Mid-Sternal Chest Pain Score (Numeric/FACES): 9 - Related Data Allergies Allergy/AdvReac Type Severity Reaction Status Date / Time naproxen Allergy Hives Verified 08/25/16 01:02 propoxyphene Allergy Hives Verified 08/25/16 01:02 Home Meds: Home Meds EPINEPHrine [Epipen 2-Anthony] 0.3 mg IM ASDIRECTED PRN 01/10/14 [History] Fish Oil/[place]-3 Fatty Acids [Fish Oil 1,000 MG] 1 cap PO BID 01/10/14 [History] Metoprolol Tartrate [Lopressor] 25 mg PO BID 01/10/14 [History] Multivitamin [Multi-Vitamin Daily] 1 tab PO DAILY 01/10/14 [History] Omeprazole [Prilosec] 20 mg PO DAILY 01/10/14 [History] Rosuvastatin [Crestor] 40 mg PO DAILY 01/10/14 [History] Sildenafil [Viagra] 100 mg PO ASDIRECTED PRN 01/10/14 [History] Acetaminophen [Tylenol Arthritis Pain] 650 mg PO Q4HR PRN 01/16/14 [History] Fluocinolone Acetonide [Synalar 0.025% Cream] 15 gm .XX DAILY PRN 01/16/14 [ History] Rcepnyrs-Phnmnle-Ulhq 149-Hyal [Glucosamine Chondroitin Complx] 1 each PO BID [History] Warfarin [Coumadin] 5 mg PO DAILY 07/14/16 [History] oxyCODONE HCl/Acetaminophen [oxyCODONE-Acetaminophen 5-325] 1 tab PO BID PRN 05/27 [History] Aspirin 81 mg PO DAILY tab.chew 07/15/16 [Rx] LORazepam [Ativan] 1 mg PO BID #30 tablet 07/15/16 [Rx] Methimazole 10 mg PO DAILY 07/16/16 [History] Nitroglycerin [Nitrostat] 0.4 mg SL ASDIRECTED 07/17/16 [History] Past Medical History HEENT History: Reports: Impaired Vision Cardiovascular History: Reports: Afib, Angina, CAD, High Cholesterol, Hypertension Respiratory History: Reports: None Gastrointestinal History: Reports: GERD Genitourinary History: Reports: None Musculoskeletal History: Reports: None Neurological History: Reports: None Psychiatric History: Reports: None Endocrine/Metabolic History: Reports: Hyperthyroidism Hematologic History: Reports: None Immunologic History: Reports: None Oncologic (Cancer) History: Reports: None Dermatologic History: Reports: None - Infectious Disease History Infectious Disease History: Reports: None - Past Surgical History Head Surgeries/Procedures: Reports: None Social & Family History - Family History Family Medical History: Noncontributory - Tobacco Use Smoking Status *Q: Former Smoker Used Tobacco, but Quit: No Second Hand Smoke Exposure: No - Caffeine Use Caffeine Use: Reports: Coffee - Alcohol Use Days Per Week of Alcohol Use: 5 Number of Drinks Per Day: 2 Total Drinks Per Week: 10 - Recreational Drug Use Recreational Drug Use: No ED ROS GENERAL - Review of Systems Review Of Systems: ROS reveals no pertinent complaints other than HPI. ED EXAM, GENERAL - Physical Exam Exam: See Below Exam Limited By: No Limitations General Appearance: Alert, WD/WN, Anxious, Mild Distress Ears: Hearing Grossly Normal Throat/Mouth: Normal Voice, No Airway Compromise Head: Atraumatic Neck: Non-Tender, Full Range of Motion Respiratory/Chest: No Respiratory Distress Cardiovascular: Regular Rate, Rhythm GI/Abdominal: Soft, Non-Tender Neurological: Alert, Oriented, Normal Cognition, Normal Gait, No Motor/Sensory Deficits Psychiatric: Anxious Skin Exam: Warm, Dry Lymphatic: No Adenopathy Course - Vital Signs Last Recorded V/S: Last Vital Signs Temp 36.2 C 08/25/16 00:58 Pulse 124 H 08/25/16 00:58 Resp 20 08/25/16 00:58 BP 122/71 08/25/16 00:58 Pulse Ox 90 L 08/25/16 01:00 - Orders/Labs/Meds Orders: Active Orders 24 hr Category Date Time Status EKG 12 Lead [EKG Documentation Completion] [RC] STAT Care 08/25/16 01:04 Active HYDROmorphone [Dilaudid] Med 08/25/16 02:17 Once 1 mg IM ONETIME ONE Labs: Laboratory Tests 08/25/16 08/25/16 08/25/16 Range/Units 01:05 01:05 01:05 WBC 5.7 (5.0-10.0) 10^3/uL RBC 4.05 L (4.6-6.2) 10^6/uL Hgb 12.7 L (14.0-18.0) g/dL Hct 39.0 L (40.0-54.0) % MCV 96.3 (80-100) fL MCH 31.4 (27.0-34.0) pg MCHC 32.6 L (33.0-35.0) g/dL Plt Count 106 L (150-450) 10^3/uL Neut % (Auto) 39.7 L (42.2-75.2) % Lymph % (Auto) 43.9 (20.5-50.1) % Charles % (Auto) 11.2 H (2-8) % Eos % (Auto) 5.0 H (1.0-3.0) % Baso % (Auto) 0.2 (0.0-1.0) % PT (9.0-12.0) SEC INR (0.9-1.2) D-Dimer, Quantitative 127 (0-400) ng/mL Sodium 141 (135-145) mmol/L Potassium 3.6 (3.6-5.0) mmol/L Chloride 104 (101-111) mmol/L Carbon Dioxide 25.0 (21.0-31.0) mmol/L Anion Gap 15.6 BUN 13 (7-18) mg/dL Creatinine 1.2 (0.6-1.3) mg/dL Est Cr Clr Drug Dosing TNP Estimated GFR (MDRD) 59 BUN/Creatinine Ratio 10.83 Glucose 139 H (74-105) mg/dL Calcium 9.1 (8.4-10.2) mg/dl Total Bilirubin 0.4 (0.2-1.0) mg/dL AST 19 (10-42) IU/L ALT 12 (10-60) IU/L Alkaline Phosphatase 63 (42-121) IU/L Troponin I < 0.02 (0.00-0.02) ng/ml Total Protein 6.5 L (6.7-8.2) g/dl Albumin 3.8 (3.2-5.5) g/dl Globulin 2.7 Albumin/Globulin Ratio 1.41 08/25/16 Range/Units 01:05 WBC (5.0-10.0) 10^3/uL RBC (4.6-6.2) 10^6/uL Hgb (14.0-18.0) g/dL Hct (40.0-54.0) % MCV (80-100) fL MCH (27.0-34.0) pg MCHC (33.0-35.0) g/dL Plt Count (150-450) 10^3/uL Neut % (Auto) (42.2-75.2) % Lymph % (Auto) (20.5-50.1) % Charles % (Auto) (2-8) % Eos % (Auto) (1.0-3.0) % Baso % (Auto) (0.0-1.0) % PT 11.1 (9.0-12.0) SEC INR 1.1 (0.9-1.2) D-Dimer, Quantitative (0-400) ng/mL Sodium (135-145) mmol/L Potassium (3.6-5.0) mmol/L Chloride (101-111) mmol/L Carbon Dioxide (21.0-31.0) mmol/L Anion Gap BUN (7-18) mg/dL Creatinine (0.6-1.3) mg/dL Est Cr Clr Drug Dosing Estimated GFR (MDRD) BUN/Creatinine Ratio Glucose (74-105) mg/dL Calcium (8.4-10.2) mg/dl Total Bilirubin (0.2-1.0) mg/dL AST (10-42) IU/L ALT (10-60) IU/L Alkaline Phosphatase (42-121) IU/L Troponin I (0.00-0.02) ng/ml Total Protein (6.7-8.2) g/dl Albumin (3.2-5.5) g/dl Globulin Albumin/Globulin Ratio Meds: Medications Discontinued Medications Generic Name Dose Route Start Last Admin Trade Name Freq PRN Reason Stop Dose Admin Al Hydroxide/Mg Hydroxide 30 ml 08/25/16 01:05 07/16/17 01:13 Gi Cocktail PO 08/25/16 01:06 30 ml ONETIME ONE Administration Hydromorphone HCl 1 mg 08/25/16 01:03 08/25/16 01:12 Dilaudid IVPUSH 08/25/16 01:04 1 mg ONETIME ONE Administration Ondansetron HCl 4 mg 08/25/16 01:03 08/25/16 01:12 Zofran IV 08/25/16 01:04 4 mg ONETIME ONE Administration - Re-Assessments/Exams Free Text/Narrative Re-Assessment/Exam: 08/25/16 02:19 results discussed with Pt & spouse. Pt had already seen Dr Brian for lumbar spinal stenosis. but not for cervical also Pt been having neck pains on-off past few months. Departure - Departure Time of Disposition: 02:20 Disposition: Home, Self-Care 01 Condition: Good Clinical Impression: Atypical chest pain Instructions: Nonspecific Chest Pain, Trle-[id number]-[id number] Forms: ED Department Discharge Additional Instructions: 1) continue home meds 2) see family doctor or Dr Brian Friday for MRI SCAN OF NECK to rule out spinal stenosis of cervical canal. 3) recheck as needed - My Orders Last 24 Hours: My Active Orders 08/25/16 01:04 EKG 12 Lead [EKG Documentation Completion] [RC] STAT 08/25/16 02:17 HYDROmorphone [Dilaudid] 1 mg IM ONETIME ONE - Assessment/Plan Last 24 Hours: My Active Orders 08/25/16 01:04 EKG 12 Lead [EKG Documentation Completion] [RC] STAT 08/25/16 02:17 HYDROmorphone [Dilaudid] 1 mg IM ONETIME ONE
[2016-08-25 01:30] LABS: CHLORIDE,CL 104 mmol/L (101-111); SODIUM,NA 141 mmol/L (135-145)
[2016-08-25] MEDS ORDERED: HYDROmorphone 1 MG/ML Syringe IM ONE (02:17)
--- NOTE | 2016-08-27 10:04 | EKG ---
08/25/2016 - JUAN A PRUETT I reviewed the EKG and agree with the machine's reading. [facility] /[id number]
== END 2016-08-25 02:32 | disposition home or self-care (01) ==
LOC: DL.ED 00:53
DX: R07.89 Other chest pain (principal); I48.91 Unspecified atrial fibrillation; I25.10 Atherosclerotic heart disease of native coronary artery without angina pectoris; E78.00 Pure hypercholesterolemia, unspecified; I10 Essential (primary) hypertension; K21.9 Gastro-esophageal reflux disease without esophagitis; E05.90 Thyrotoxicosis, unspecified without thyrotoxic crisis or storm; Z87.891 Personal history of nicotine dependence; Z88.8 Allergy status to other drugs, medicaments and biological substances; Z88.5 Allergy status to narcotic agent; Z79.899 Other long term (current) drug therapy; Z79.01 Long term (current) use of anticoagulants
CPT/HCPCS: 36415; 80053; 84484; 85025; 85379; 85610; 93005; 93010; 96372; 96374; 96375; 99285; A9270; J1170; J2405

== ENCOUNTER 2016-09-03 07:12 | Emergency (ER) | payer MEDICARE, BC ==
--- NOTE | 2016-09-03 07:43 | EDM.PDOC ---
ED HPI GENERAL MEDICAL PROBLEM - General Chief Complaint: Abdominal Pain Stated Complaint: LOWER ABD, LEFT SIDE PAIN Time Seen by Provider: 09/03/16 07:30 Source of Information: Reports: Patient History Limitations: Reports: No Limitations - History of Present Illness INITIAL COMMENTS - FREE TEXT/NARRATIVE: This 75 yo male patient reports to the ED with his due to left lower abdominal pain. The patient reports his pain started 2-3 days ago, but has been very consistent throughout the night. The patient reports that he was unable to sleep last night due to the pain. The patient reports he has a history of diverticuli, but has not had any similar symptoms in the past. The patient reports his last colonoscopy was in 2007. The patient has had an appendectomy in the past. The patient denies any heavy lifting and denies any dark or bloody stools. The patient reports no nausea/vomiting or diarrhea. The patient states his last bowel movement was last night and was normal. The patient took Tylenol last night with no symptom relief. The patient does have Oxycodone (for chronic right hip pain with weather changes), but has not taken one for the past 2 days. The patient has not been seen by his primary care facility for current symptoms. Onset Date: 08/31/16 Duration: Constant, Getting Worse Location: Reports: Abdomen (LLQ) Quality: Reports: Ache, Dull Severity: Moderate Improves with: Reports: None Worsens with: Reports: None Associated Symptoms: Denies: Chest Pain, Cough, Fever/Chills, Nausea/Vomiting Treatments HAND TURNER: Reports: Acetaminophen Left Lower Abdomen Pain Score (Numeric/FACES): 8 - Related Data Allergies Allergy/AdvReac Type Severity Reaction Status Date / Time naproxen Allergy Hives Verified 09/03/16 07:22 propoxyphene Allergy Hives Verified 09/03/16 07:22 Home Meds: Home Meds EPINEPHrine [Epipen 2-Anthony] 0.3 mg IM ASDIRECTED PRN 01/10/14 [History] Fish Oil/[place]-3 Fatty Acids [Fish Oil 1,000 MG] 1 cap PO BID 01/10/14 [History] Metoprolol Tartrate [Lopressor] 25 mg PO BID 01/10/14 [History] Multivitamin [Multi-Vitamin Daily] 1 tab PO DAILY 01/10/14 [History] Omeprazole [Prilosec] 20 mg PO DAILY 01/10/14 [History] Rosuvastatin [Crestor] 40 mg PO DAILY 01/10/14 [History] Sildenafil [Viagra] 100 mg PO ASDIRECTED PRN 01/10/14 [History] Acetaminophen [Tylenol Arthritis Pain] 650 mg PO Q6H PRN 01/16/14 [History] Fluocinolone Acetonide [Synalar 0.025% Cream] 15 gm .XX DAILY PRN 01/16/14 [ History] Xfxrvuig-Iilbdwe-Smgc 149-Hyal [Glucosamine Chondroitin Complx] 1 each PO BID [History] Warfarin [Coumadin] 5 mg PO DAILY 07/14/16 [History] oxyCODONE HCl/Acetaminophen [oxyCODONE-Acetaminophen 5-325] 1 tab PO BID PRN 05/27 [History] Aspirin 81 mg PO DAILY tab.chew 07/15/16 [Rx] LORazepam [Ativan] 1 mg PO BID #30 tablet 07/15/16 [Rx] Methimazole 5 mg PO DAILY 07/16/16 [History] Nitroglycerin [Nitrostat] 0.4 mg SL ASDIRECTED 07/17/16 [History] Cranberry 1 tab PO BID 09/03/16 [History] Lycopene 25 mg PO DAILY 09/03/16 [History] Past Medical History HEENT History: Reports: Impaired Vision Cardiovascular History: Reports: Afib, Angina, CAD, High Cholesterol, Hypertension Respiratory History: Reports: None Gastrointestinal History: Reports: GERD Genitourinary History: Reports: None Musculoskeletal History: Reports: None Neurological History: Reports: None Psychiatric History: Reports: None Endocrine/Metabolic History: Reports: Hyperthyroidism Hematologic History: Reports: None Immunologic History: Reports: None Oncologic (Cancer) History: Reports: None Dermatologic History: Reports: None - Infectious Disease History Infectious Disease History: Reports: None - Past Surgical History Head Surgeries/Procedures: Reports: None Social & Family History - Family History Family Medical History: Noncontributory - Tobacco Use Smoking Status *Q: Former Smoker Used Tobacco, but Quit: No Month Tobacco Last Used: 1985 Second Hand Smoke Exposure: No - Caffeine Use Caffeine Use: Reports: Coffee - Alcohol Use Days Per Week of Alcohol Use: 7 Number of Drinks Per Day: 2 Total Drinks Per Week: 14 - Recreational Drug Use Recreational Drug Use: No ED ROS GENERAL - Review of Systems Review Of Systems: ROS reveals no pertinent complaints other than HPI. ED EXAM, GI/ABD - Physical Exam Exam: See Below Exam Limited By: No Limitations General Appearance: Alert, WD/WN, Moderate Distress Eyes: Bilateral: Normal Appearance, EOMI Ears: Normal External Exam, Normal Canal, Hearing Grossly Normal, Normal TMs Nose: Normal Inspection, Normal Mucosa, No Blood Throat/Mouth: Normal Inspection, Normal Lips, Normal Teeth, Normal Gums, Normal Oropharynx, Normal Voice, No Airway Compromise Head: Atraumatic, Normocephalic Neck: Normal Inspection, Supple, Non-Tender, Full Range of Motion Respiratory/Chest: No Respiratory Distress, Lungs Clear, Normal Breath Sounds, No Accessory Muscle Use, Chest Non-Tender Cardiovascular: Normal Peripheral Pulses, Regular Rate, Rhythm, No Edema, No Gallop, No JVD, No Murmur, No Rub GI/Abdominal Exam: Normal Bowel Sounds, No Organomegaly, No Distention, No Abnormal Bruit, No Mass, Pelvis Stable, Tender (diffuse lower quadrant) (Male) Exam: Deferred Rectal (Males) Exam: Deferred Back Exam: Normal Inspection, Full Range of Motion, NT Extremities: Normal Inspection, Normal Range of Motion, Non-Tender, Normal Capillary Refill, No Pedal Edema Neurological: Alert, Oriented, CN II-XII Intact, Normal Cognition, Normal Gait, Normal Reflexes, No Motor/Sensory Deficits Psychiatric: Normal Affect, Normal Mood Skin Exam: Warm, Dry, Intact, Normal Color, No Rash Lymphatic: No Adenopathy Course - Vital Signs Last Recorded V/S: Last Vital Signs Temp 36.8 C 09/03/16 07:20 Pulse 54 L 09/03/16 09:09 Resp 16 09/03/16 09:09 BP 123/48 L 09/03/16 09:09 Pulse Ox 96 09/03/16 09:09 - Orders/Labs/Meds Orders: Active Orders 24 hr Category Date Time Status Abdomen Pelvis w Cont [CT] Urgent Exams 09/03/16 08:33 Taken Medication Orders Hydromorphone HCl (Dilaudid) 1 mg IVPUSH ONETIME ONE Stop: 09/03/16 10:47 Labs: Laboratory Tests 09/03/16 09/03/16 09/03/16 Range/Units 07:40 07:40 07:40 WBC 6.6 (5.0-10.0) 10^3/uL RBC 3.98 L (4.6-6.2) 10^6/uL Hgb 12.6 L (14.0-18.0) g/dL Hct 38.3 L (40.0-54.0) % MCV 96.2 (80-100) fL MCH 31.7 (27.0-34.0) pg MCHC 32.9 L (33.0-35.0) g/dL Plt Count 140 L (150-450) 10^3/uL Neut % (Auto) 45.4 (42.2-75.2) % Lymph % (Auto) 40.6 (20.5-50.1) % [place] % (Auto) 8.5 H (2-8) % Eos % (Auto) 5.2 H (1.0-3.0) % Baso % (Auto) 0.3 (0.0-1.0) % Sodium 139 (135-145) mmol/L Potassium 4.3 (3.6-5.0) mmol/L Chloride 104 (101-111) mmol/L Carbon Dioxide 25.0 (21.0-31.0) mmol/L Anion Gap 14.3 BUN 16 (7-18) mg/dL Creatinine 1.1 (0.6-1.3) mg/dL Est Cr Clr Drug Dosing 74.53 mL/min Estimated GFR (MDRD) > 60 BUN/Creatinine Ratio 14.54 Glucose 110 H (74-105) mg/dL Lactic Acid 1.2 (0.5-2.2) mmol/L Calcium 9.2 (8.4-10.2) mg/dl Magnesium 1.5 L (1.8-2.5) mg/dL Total Bilirubin 0.5 (0.2-1.0) mg/dL AST 20 (10-42) IU/L ALT 12 (10-60) IU/L Alkaline Phosphatase 52 (42-121) IU/L Total Protein 6.6 L (6.7-8.2) g/dl Albumin 3.8 (3.2-5.5) g/dl Globulin 2.8 Albumin/Globulin Ratio 1.36 Amylase 67 (28-100) U/L Lipase 30 (22-51) U/L Urine Color (YELLOW) Urine Appearance (CLEAR) Urine pH (5.0-9.0) Ur Specific [place] (1.005-1.030) Urine Protein (NEGATIVE) Urine Glucose (UA) (NEGATIVE) Urine Ketones (NEGATIVE) Urine Occult Blood (NEGATIVE) Urine Nitrite (NEGATIVE) Urine Bilirubin (NEGATIVE) Urine Urobilinogen (0.2-1.0) mg/dL Ur Leukocyte Esterase (NEGATIVE) Urine RBC /HPF Urine WBC (0-5/HPF) /HPF Ur Epithelial Cells /HPF Urine Bacteria (0-FEW/HPF) /HPF 09/03/16 Range/Units 07:49 WBC (5.0-10.0) 10^3/uL RBC (4.6-6.2) 10^6/uL Hgb (14.0-18.0) g/dL Hct (40.0-54.0) % MCV (80-100) fL MCH (27.0-34.0) pg MCHC (33.0-35.0) g/dL Plt Count (150-450) 10^3/uL Neut % (Auto) (42.2-75.2) % Lymph % (Auto) (20.5-50.1) % [place] % (Auto) (2-8) % Eos % (Auto) (1.0-3.0) % Baso % (Auto) (0.0-1.0) % Sodium (135-145) mmol/L Potassium (3.6-5.0) mmol/L Chloride (101-111) mmol/L Carbon Dioxide (21.0-31.0) mmol/L Anion Gap BUN (7-18) mg/dL Creatinine (0.6-1.3) mg/dL Est Cr Clr Drug Dosing mL/min Estimated GFR (MDRD) BUN/Creatinine Ratio Glucose (74-105) mg/dL Lactic Acid (0.5-2.2) mmol/L Calcium (8.4-10.2) mg/dl Magnesium (1.8-2.5) mg/dL Total Bilirubin (0.2-1.0) mg/dL AST (10-42) IU/L ALT (10-60) IU/L Alkaline Phosphatase (42-121) IU/L Total Protein (6.7-8.2) g/dl Albumin (3.2-5.5) g/dl Globulin Albumin/Globulin Ratio Amylase (28-100) U/L Lipase (22-51) U/L Urine Color Yellow (YELLOW) Urine Appearance Clear (CLEAR) Urine pH 6.5 (5.0-9.0) Ur Specific [place] 1.010 (1.005-1.030) Urine Protein Negative (NEGATIVE) Urine Glucose (UA) Negative (NEGATIVE) Urine Ketones Negative (NEGATIVE) Urine Occult Blood Negative (NEGATIVE) Urine Nitrite Negative (NEGATIVE) Urine Bilirubin Negative (NEGATIVE) Urine Urobilinogen 0.2 (0.2-1.0) mg/dL Ur Leukocyte Esterase Negative (NEGATIVE) Urine RBC Not seen /HPF Urine WBC 0-5 (0-5/HPF) /HPF Ur Epithelial Cells Not seen /HPF Urine Bacteria Rare (0-FEW/HPF) /HPF Meds: Medications Generic Name Dose Route Start Last Admin Trade Name Freq PRN Reason Stop Dose Admin Hydromorphone HCl 1 mg 09/03/16 10:46 Dilaudid IVPUSH 09/03/16 10:47 ONETIME ONE Discontinued Medications Generic Name Dose Route Start Last Admin Trade Name Freq PRN Reason Stop Dose Admin Hydromorphone HCl 1 mg 09/03/16 08:27 09/03/16 08:31 Dilaudid IVPUSH 09/03/16 08:28 1 mg ONETIME ONE Administration Iopamidol 100 ml 09/03/16 08:33 09/03/16 09:05 Isovue-300 (61%) IVPUSH 09/03/16 08:34 125 ml ONETIME ONE Administration Departure - Departure Time of Disposition: 10:51 Disposition: Home, Self-Care 01 Condition: Fair Clinical Impression: Diverticulitis Qualifiers: Diverticulitis site: large intestine Diverticulitis bleeding: without bleeding Diverticulitis complication: without perforation or abscess Qualified Code(s): K57.32 - Diverticulitis of large intestine without perforation or abscess without bleeding - Discharge Information Instructions: Diverticulitis, [id number]-[id number] Forms: ED Department Discharge Care Plan Goals: The patient was advised of his examination, lab and CT results during the visit. The patient was given 2 doses of Dilaudid while in the ED for pain. The patient was discharged with a script for Augmentin (500/125) #21 to take 1 by mouth 3 times per day for 7 days and Metronidazole (500 mg) #21 to take 1 by mouth 3 times per day for 7 days. If the patient has any additional symptoms or concerns, the patient should either follow-up with his primary care facility or return to the emergency department. - My Orders Last 24 Hours: My Active Orders 09/03/16 08:33 Abdomen Pelvis w Cont [CT] Urgent - Assessment/Plan Last 24 Hours: My Active Orders 09/03/16 08:33 Abdomen Pelvis w Cont [CT] Urgent
[2016-09-03 08:10] LABS: CHLORIDE,CL 104 mmol/L (101-111); SODIUM,NA 139 mmol/L (135-145)
[2016-09-03] MEDS ORDERED: HYDROmorphone 1 MG/ML Syringe IVPUSH ONE ×2 (08:27→10:46)
[2016-09-03] MEDS ORDERED: Iopamidol 612 MG/ML 100 ML Bottle IVPUSH ONE (08:33)
--- NOTE | 2016-09-03 11:10 | CT ---
Clinical history: 75-year-old 320 pound male with left lower quadrant pain. This hypertensive afebri le patient with normal white blood cell count has had previous appendectomy and history "diverticulo sis colon". Scan technique: Acquisition of data from the abdomen and pelvis obtained without oral or IV contrast while the patient was lying supine on the Siemens multislice scanner [place], [place]. All data archived in the PAC system for storage, reformatting and study. Interpretation: 1. Sigmoid diverticula with subtle surrounding inflammatory "dirty" pericolonic fat i.e. acute diver ticulitis left lower quadrant. 2. Fatty liver, splenomegaly, and retroperitoneal varices indicate probable chronic hepatocellular d isease. 3. Cardiomegaly but lung bases clear. No pleural effusion. No ascites. 4. Faint calcifications wall of the gallbladder (no intraluminal gallstones). No abnormal dilatation of the intra or extrahepatic biliary ducts. Normal pancreas. Stomach and adrenal glands unremarkabl e. 5. Normal reniform size axis and configuration. No sign of renal cortical mass lesion, nephrolithias is or obstructive uropathy. Calcifications prostate gland midline. Urinary bladder unremarkable. 6. Dense calcifications normal caliber but ectatic aortoiliac vessels. 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 7. No pelvic or abdominal mass lesion, mesenteric lymphadenopathy, signs of bowel obstruction, ascit es or free air. CONCLUSION: Sigmoid diverticulitis. Chronic hepatocellular disease.
[2016-09-03 11:13] VITALS: BP 126/72
== END 2016-09-03 11:05 | disposition home or self-care (01) ==
LOC: DL.ED 07:12
DX: K57.32 Diverticulitis of large intestine without perforation or abscess without bleeding (principal); I48.91 Unspecified atrial fibrillation; I25.119 Atherosclerotic heart disease of native coronary artery with unspecified angina pectoris; E78.00 Pure hypercholesterolemia, unspecified; K21.9 Gastro-esophageal reflux disease without esophagitis; E05.90 Thyrotoxicosis, unspecified without thyrotoxic crisis or storm; Z87.891 Personal history of nicotine dependence; Z88.8 Allergy status to other drugs, medicaments and biological substances; Z79.899 Other long term (current) drug therapy; Z79.82 Long term (current) use of aspirin
CPT/HCPCS: 36415; 74177; 80053; 81001; 82150; 83605; 83690; 83735; 85025; 96374; 96376; 99284; J1170; Q9967

== ENCOUNTER 2016-09-14 21:48 | Emergency (ER) | payer MEDICARE, BC ==
[2016-09-14] MEDS ORDERED: HYDROmorphone 1 MG/ML Syringe IVPUSH ONE ×2 (22:10→23:08)
[2016-09-14] MEDS ORDERED: Aspirin 81 MG Tab.Chew PO ONE (22:10)
--- NOTE | 2016-09-14 22:15 | EDM.PDOC ---
ED HPI GENERAL MEDICAL PROBLEM - General Chief Complaint: Chest Pain Stated Complaint: CHEST PAINS, NECK,SOB [id number] Time Seen by Provider: 09/14/16 22:02 Source of Information: Reports: Patient History Limitations: Reports: No Limitations - History of Present Illness INITIAL COMMENTS - FREE TEXT/NARRATIVE: This 75 yo male patient reports to the ED with an acute onset of chest pain with pain radiating up to his neck and jaw. The patient reports he took 3 doses of Nitro prior to coming to the ED with no symptom relief. The patient rates his pain as an 8/10 and describes it as sharp. The patient had a stress test about 1 month ago and had an angio [address] Schwab. The patient has a history of a. fib and is on Warfarin. 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 OFFICER: Reports: Nitroglycerin (x3 at home) Mid-Sternal Chest Pain Score (Numeric/FACES): 8 - Related Data Allergies Allergy/AdvReac Type Severity Reaction Status Date / Time naproxen Allergy Hives Verified 09/14/16 21:55 propoxyphene Allergy Hives Verified 09/14/16 21:55 Home Meds: Home Meds EPINEPHrine [Epipen 2-Anthony] 0.3 mg IM ASDIRECTED PRN 01/10/14 [History] Fish Oil/[place]-3 Fatty Acids [Fish Oil 1,000 MG] 1 cap PO BID 01/10/14 [History] Metoprolol Tartrate [Lopressor] 25 mg PO BID 01/10/14 [History] Multivitamin [Multi-Vitamin Daily] 1 tab PO DAILY 01/10/14 [History] Omeprazole [Prilosec] 20 mg PO DAILY 01/10/14 [History] Rosuvastatin [Crestor] 40 mg PO DAILY 01/10/14 [History] Sildenafil [Viagra] 100 mg PO ASDIRECTED PRN 01/10/14 [History] Acetaminophen [Tylenol Arthritis Pain] 650 mg PO Q6H PRN 01/16/14 [History] Fluocinolone Acetonide [Synalar 0.025% Cream] 15 gm .XX DAILY PRN 01/16/14 [ History] Vatisatj-Ipsvsjf-Rkyt 149-Hyal [Glucosamine Chondroitin Complx] 1 each PO BID [History] Warfarin [Coumadin] 5 mg PO DAILY 07/14/16 [History] oxyCODONE HCl/Acetaminophen [oxyCODONE-Acetaminophen 5-325] 1 tab PO BID PRN 05/27 [History] Aspirin 81 mg PO DAILY tab.chew 07/15/16 [Rx] LORazepam [Ativan] 1 mg PO BID #30 tablet 07/15/16 [Rx] Methimazole 5 mg PO DAILY 07/16/16 [History] Nitroglycerin [Nitrostat] 0.4 mg SL ASDIRECTED PRN 07/17/16 [History] Cranberry 1 tab PO BID 09/03/16 [History] Lycopene 25 mg PO DAILY 09/03/16 [History] Past Medical History HEENT History: Reports: Impaired Vision Cardiovascular History: Reports: Afib, Angina, CAD, High Cholesterol, Hypertension Respiratory History: Reports: None Gastrointestinal History: Reports: GERD Genitourinary History: Reports: None Musculoskeletal History: Reports: None Neurological History: Reports: None Psychiatric History: Reports: None Endocrine/Metabolic History: Reports: Hyperthyroidism Hematologic History: Reports: None Immunologic History: Reports: None Oncologic (Cancer) History: Reports: None Dermatologic History: Reports: None - Infectious Disease History Infectious Disease History: Reports: None - Past Surgical History Head Surgeries/Procedures: Reports: None Social & Family History - Family History Family Medical History: Noncontributory - Tobacco Use Smoking Status *Q: Never Smoker Used Tobacco, but Quit: No Month Tobacco Last Used: 1985 Second Hand Smoke Exposure: No - Caffeine Use Caffeine Use: Reports: Coffee - Alcohol Use Days Per Week of Alcohol Use: 7 Number of Drinks Per Day: 2 Total Drinks Per Week: 14 - Recreational Drug Use Recreational Drug Use: No ED ROS GENERAL - Review of Systems Review Of Systems: ROS reveals no pertinent complaints other than HPI. ED EXAM, GENERAL - Physical Exam Exam: See Below Exam Limited By: No Limitations General Appearance: Alert, WD/WN, Moderate Distress Eye Exam: Bilateral Eye: EOMI, Normal Inspection, PERRL Ears: Normal External Exam, Normal Canal, Hearing Grossly Normal, Normal TMs Nose: Normal Inspection, Normal Mucosa, No Blood Throat/Mouth: Normal Inspection, Normal Lips, Normal Teeth, Normal Gums, Normal Oropharynx, Normal Voice, No Airway Compromise Head: Atraumatic, Normocephalic Neck: Normal Inspection, Supple, Non-Tender, Full Range of Motion Respiratory/Chest: No Respiratory Distress, Lungs Clear, Normal Breath Sounds, No Accessory Muscle Use, Chest Non-Tender Cardiovascular: Normal Peripheral Pulses, No Edema, No Gallop, No JVD, No Rub, Irregularly Irregular GI/Abdominal: Normal Bowel Sounds, Soft, Non-Tender, No Organomegaly, No Distention, No Abnormal Bruit, No Mass, Other (obese) (Male) Exam: Deferred Rectal (Males) Exam: Deferred Back Exam: Normal Inspection, Full Range of Motion, NT Extremities: Normal Inspection, Normal Range of Motion, Non-Tender, Normal Capillary Refill, No Pedal Edema Neurological: Alert, Oriented, CN II-XII Intact, Normal Cognition, Normal Reflexes, No Motor/Sensory Deficits Psychiatric: Normal Affect, Normal Mood Skin Exam: Warm, Dry, Intact, Normal Color, No Rash Lymphatic: No Adenopathy Course - Vital Signs Last Recorded V/S: Last Vital Signs Temp 37.1 C 09/15/16 02:17 Pulse 61 09/15/16 02:17 Resp 14 09/15/16 02:17 BP 142/66 H 09/15/16 02:17 Pulse Ox 97 09/15/16 02:17 - Orders/Labs/Meds Orders: Active Orders 24 hr Category Date Time Status EKG Documentation Completion [RC] ASDIRECTED Care 09/15/16 02:00 Active EKG Documentation Completion [RC] URGENT Care 09/14/16 21:52 Active Labs: Laboratory Tests 09/14/16 09/14/16 09/14/16 Range/Units 22:00 22:00 22:00 WBC 6.2 (5.0-10.0) 10^3/uL RBC 4.06 L (4.6-6.2) 10^6/uL Hgb 12.6 L (14.0-18.0) g/dL Hct 38.7 L (40.0-54.0) % MCV 95.3 (80-100) fL MCH 31.0 (27.0-34.0) pg MCHC 32.6 L (33.0-35.0) g/dL Plt Count 124 L (150-450) 10^3/uL Neut % (Auto) 38.9 L (42.2-75.2) % Lymph % (Auto) 49.5 (20.5-50.1) % [place] % (Auto) 7.4 (2-8) % Eos % (Auto) 3.7 H (1.0-3.0) % Baso % (Auto) 0.5 (0.0-1.0) % PT 16.8 H (9.0-12.0) SEC INR 1.7 H (0.9-1.2) Sodium 141 (135-145) mmol/L Potassium 3.7 (3.6-5.0) mmol/L Chloride 105 (101-111) mmol/L Carbon Dioxide 25.0 (21.0-31.0) mmol/L Anion Gap 14.7 BUN 16 (7-18) mg/dL Creatinine 1.2 (0.6-1.3) mg/dL Est Cr Clr Drug Dosing 68.32 mL/min Estimated GFR (MDRD) 59 BUN/Creatinine Ratio 13.33 Glucose 147 H (74-105) mg/dL Calcium 9.0 (8.4-10.2) mg/dl Total Bilirubin 0.5 (0.2-1.0) mg/dL AST 23 (10-42) IU/L ALT 15 (10-60) IU/L Alkaline Phosphatase 58 (42-121) IU/L Troponin I < 0.02 (0.00-0.02) ng/ml Total Protein 6.5 L (6.7-8.2) g/dl Albumin 3.8 (3.2-5.5) g/dl Globulin 2.7 Albumin/Globulin Ratio 1.41 /07/27 Range/Units 02:00 WBC (5.0-10.0) 10^3/uL RBC (4.6-6.2) 10^6/uL Hgb (14.0-18.0) g/dL Hct (40.0-54.0) % MCV (80-100) fL MCH (27.0-34.0) pg MCHC (33.0-35.0) g/dL Plt Count (150-450) 10^3/uL Neut % (Auto) (42.2-75.2) % Lymph % (Auto) (20.5-50.1) % [place] % (Auto) (2-8) % Eos % (Auto) (1.0-3.0) % Baso % (Auto) (0.0-1.0) % PT (9.0-12.0) SEC INR (0.9-1.2) Sodium (135-145) mmol/L Potassium (3.6-5.0) mmol/L Chloride (101-111) mmol/L Carbon Dioxide (21.0-31.0) mmol/L Anion Gap BUN (7-18) mg/dL Creatinine (0.6-1.3) mg/dL Est Cr Clr Drug Dosing mL/min Estimated GFR (MDRD) BUN/Creatinine Ratio Glucose (74-105) mg/dL Calcium (8.4-10.2) mg/dl Total Bilirubin (0.2-1.0) mg/dL AST (10-42) IU/L ALT (10-60) IU/L Alkaline Phosphatase (42-121) IU/L Troponin I < 0.02 (0.00-0.02) ng/ml Total Protein (6.7-8.2) g/dl Albumin (3.2-5.5) g/dl Globulin Albumin/Globulin Ratio Meds: Medications Discontinued Medications Generic Name Dose Route Start Last Admin Trade Name Freq PRN Reason Stop Dose Admin Aspirin 324 mg 09/14/16 22:10 09/14/16 22:14 Aspirin PO 09/14/16 22:11 324 mg ONETIME ONE Administration Hydromorphone HCl 0.5 mg 09/14/16 22:10 09/14/16 22:15 Dilaudid IVPUSH 09/14/16 22:11 0.5 mg ONETIME ONE Administration Hydromorphone HCl 1 mg 09/14/16 23:08 09/14/16 23:28 Dilaudid IVPUSH 09/14/16 23:09 1 mg ONETIME ONE Administration Lorazepam 1 mg 09/15/16 02:43 Ativan IVPUSH 09/15/16 02:44 ONETIME ONE Departure - Departure Time of Disposition: 02:44 Disposition: Home, Self-Care 01 Condition: Fair Clinical Impression: Atypical chest pain Instructions: Nonspecific Chest Pain, [id number] Forms: ED Department Discharge Care Plan Goals: The patient was advised of the examination, EKG, lab and repeat lab results during the visit. The patient was encouraged to follow-up with his primary care provider or his blueprint developer for continued evaluation and management. If the patient has any additional symptoms or concerns, the patient should visit his primary care facility or return to the emergency department. - My Orders Last 24 Hours: My Active Orders 09/14/16 21:52 EKG Documentation Completion [RC] URGENT 09/15/16 02:00 EKG Documentation Completion [RC] ASDIRECTED - Assessment/Plan Last 24 Hours: My Active Orders 09/14/16 21:52 EKG Documentation Completion [RC] URGENT 09/15/16 02:00 EKG Documentation Completion [RC] ASDIRECTED
[2016-09-14 22:25] LABS: CHLORIDE,CL 105 mmol/L (101-111); SODIUM,NA 141 mmol/L (135-145)
[2016-09-15] MEDS ORDERED: LORazepam 2 MG/ML Syringe IVPUSH ONE (02:43)
[2016-09-15 03:05] VITALS: BP 140/66
--- NOTE | 2016-09-17 10:11 | EKG ---
09/14/2016- JUAN A PRUETT - EKG per my reading shows atrial fibrillation with rapid ventricular rate in the rate of 120s. MOD /[id number]
== END 2016-09-15 03:15 | disposition home or self-care (01) ==
LOC: DL.ED 21:48
DX: R07.89 Other chest pain (principal); H54.7 Unspecified visual loss; I48.91 Unspecified atrial fibrillation; I25.119 Atherosclerotic heart disease of native coronary artery with unspecified angina pectoris; E78.00 Pure hypercholesterolemia, unspecified; I10 Essential (primary) hypertension; K21.9 Gastro-esophageal reflux disease without esophagitis; E05.90 Thyrotoxicosis, unspecified without thyrotoxic crisis or storm; Z88.8 Allergy status to other drugs, medicaments and biological substances; Z79.899 Other long term (current) drug therapy
CPT/HCPCS: 36415; 71010; 80053; 84484; 85025; 85610; 93005; 93010; 96374; 96375; 96376; 99285; A9270; J1170; J2060; 99284

== ENCOUNTER 2016-10-18 00:31 | Emergency (ER) | payer MEDICARE, BC ==
[2016-10-18] MEDS ORDERED: Aspirin 81 MG Tab.Chew PO ONE (00:44)
[2016-10-18 00:45] VITALS: BP 161/108
[2016-10-18] MEDS ORDERED: LORazepam 2 MG/ML Syringe IVPUSH ONE (00:45)
[2016-10-18] MEDS ORDERED: HYDROmorphone 1 MG/ML Syringe IVPUSH ONE ×2 (00:45→01:25)
--- NOTE | 2016-10-18 00:51 | EDM.PDOC ---
ED HPI GENERAL MEDICAL PROBLEM - General Chief Complaint: Cardiovascular Problem Stated Complaint: HEART ATTACK? Time Seen by Provider: 10/18/16 00:40 Source of Information: Reports: Patient History Limitations: Reports: No Limitations - History of Present Illness INITIAL COMMENTS - FREE TEXT/NARRATIVE: This 75 yo male patient reports to the ED with a 30 minute history of chest pain. The patient reports his pain started at about 2340. The patient reports his pain is in the right side of his chest, radiates to his right arm and rates his pain at a 10/10. The patient reports he has taken Nitro x2 while at home. The patient reports he is very anxious at this time. 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 The patient reports he has had numerous similar episodes in the past, but today his pain is much worse. The patient reports the nitro did not do anything to change is pain. Onset Date: 10/17/16 Onset Time: 23:40 Duration: Constant Location: Reports: Chest, Radiates to (right arm) Quality: Reports: Ache, Sharp Severity: Severe Improves with: Reports: None Worsens with: Reports: None Associated Symptoms: Reports: Chest Pain Chest Pain Score (Numeric/FACES): 10 - Related Data Allergies Allergy/AdvReac Type Severity Reaction Status Date / Time naproxen Allergy Hives Verified 10/18/16 00:35 propoxyphene Allergy Hives Verified 10/18/16 00:35 Home Meds: Home Meds EPINEPHrine [Epipen 2-Anthony] 0.3 mg IM ASDIRECTED PRN 01/10/14 [History] Fish Oil/[place]-3 Fatty Acids [Fish Oil 1,000 MG] 1 cap PO BID 01/10/14 [History] Metoprolol Tartrate [Lopressor] 25 mg PO BID 01/10/14 [History] Multivitamin [Multi-Vitamin Daily] 1 tab PO DAILY 01/10/14 [History] Omeprazole [Prilosec] 20 mg PO DAILY 01/10/14 [History] Rosuvastatin [Crestor] 40 mg PO DAILY 01/10/14 [History] Sildenafil [Viagra] 100 mg PO ASDIRECTED PRN 01/10/14 [History] Acetaminophen [Tylenol Arthritis Pain] 650 mg PO Q6H PRN 01/16/14 [History] Fluocinolone Acetonide [Synalar 0.025% Cream] 15 gm .XX DAILY PRN 01/16/14 [ History] Cgsjgidm-Xnbfrys-Iyxe 149-Hyal [Glucosamine Chondroitin Complx] 1 each PO BID [History] Warfarin [Coumadin] 5 mg PO DAILY 07/14/16 [History] oxyCODONE HCl/Acetaminophen [oxyCODONE-Acetaminophen 5-325] 1 tab PO BID PRN 05/27 [History] Aspirin 81 mg PO DAILY tab.chew 07/15/16 [Rx] LORazepam [Ativan] 1 mg PO BID #30 tablet 07/15/16 [Rx] Methimazole 5 mg PO DAILY 07/16/16 [History] Nitroglycerin [Nitrostat] 0.4 mg SL ASDIRECTED PRN 07/17/16 [History] Cranberry 1 tab PO BID 09/03/16 [History] Lycopene 25 mg PO DAILY 09/03/16 [History] Past Medical History HEENT History: Reports: Impaired Vision Cardiovascular History: Reports: Afib, Angina, CAD, High Cholesterol, Hypertension Respiratory History: Reports: None Gastrointestinal History: Reports: GERD Genitourinary History: Reports: None Musculoskeletal History: Reports: None Neurological History: Reports: None Psychiatric History: Reports: None Endocrine/Metabolic History: Reports: Hyperthyroidism Hematologic History: Reports: None Immunologic History: Reports: None Oncologic (Cancer) History: Reports: None Dermatologic History: Reports: None - Infectious Disease History Infectious Disease History: Reports: None - Past Surgical History Head Surgeries/Procedures: Reports: None Social & Family History - Family History Family Medical History: Noncontributory - Tobacco Use Smoking Status *Q: Never Smoker Used Tobacco, but Quit: No Month Tobacco Last Used: 1985 Second Hand Smoke Exposure: No - Caffeine Use Caffeine Use: Reports: Coffee - Alcohol Use Days Per Week of Alcohol Use: 7 Number of Drinks Per Day: 2 Total Drinks Per Week: 14 - Recreational Drug Use Recreational Drug Use: No ED ROS GENERAL - Review of Systems Review Of Systems: ROS reveals no pertinent complaints other than HPI. ED EXAM, GENERAL - Physical Exam Exam: See Below Exam Limited By: No Limitations General Appearance: Alert, WD/WN, Moderate Distress, Obese Eye Exam: Bilateral Eye: EOMI, Normal Inspection, PERRL Ears: Normal External Exam, Normal Canal, Hearing Grossly Normal, Normal TMs Nose: Normal Inspection, Normal Mucosa, No Blood Throat/Mouth: Normal Inspection, Normal Lips, Normal Teeth, Normal Gums, Normal Oropharynx, Normal Voice, No Airway Compromise Head: Atraumatic, Normocephalic Neck: Normal Inspection, Supple, Non-Tender, Full Range of Motion Respiratory/Chest: No Respiratory Distress, Lungs Clear, Normal Breath Sounds, No Accessory Muscle Use, Chest Non-Tender Cardiovascular: No Edema, No JVD, No Rub, Tachycardia, Irregularly Irregular GI/Abdominal: Normal Bowel Sounds, Soft, Non-Tender, No Organomegaly, No Distention, No Abnormal Bruit, No Mass, Other (obese) (Male) Exam: Deferred Rectal (Males) Exam: Deferred Back Exam: Normal Inspection, Full Range of Motion, NT Extremities: Normal Inspection, Normal Range of Motion, Non-Tender, Normal Capillary Refill, No Pedal Edema Neurological: Alert, Oriented, CN II-XII Intact, Normal Cognition, Normal Gait, Normal Reflexes, No Motor/Sensory Deficits Psychiatric: Anxious Skin Exam: Warm, Dry, Intact, Normal Color, No Rash Lymphatic: No Adenopathy Course - Vital Signs Last Recorded V/S: Last Vital Signs Temp 36.7 C 10/18/16 00:42 Pulse 125 H 10/18/16 00:42 Resp 22 H 10/18/16 00:42 BP 161/108 H 10/18/16 00:42 Pulse Ox 91 L 10/18/16 00:42 - Orders/Labs/Meds Orders: Active Orders 24 hr Category Date Time Status EKG Documentation Completion [RC] URGENT Care 10/18/16 00:39 Active Chest 1V Frontal [CR] Urgent Exams 10/18/16 00:39 Taken Labs: Laboratory Tests 10/18/16 10/18/16 10/18/16 Range/Units 00:40 00:40 00:40 WBC 7.0 (5.0-10.0) 10^3/uL RBC 4.28 L (4.6-6.2) 10^6/uL Hgb 12.9 L (14.0-18.0) g/dL Hct 39.8 L (40.0-54.0) % MCV 93.0 (80-100) fL MCH 30.1 (27.0-34.0) pg MCHC 32.4 L (33.0-35.0) g/dL Plt Count 136 L (150-450) 10^3/uL Neut % (Auto) 39.8 L (42.2-75.2) % Lymph % (Auto) 47.8 (20.5-50.1) % [place] % (Auto) 8.4 H (2-8) % Eos % (Auto) 3.7 H (1.0-3.0) % Baso % (Auto) 0.3 (0.0-1.0) % PT 17.5 H (9.0-12.0) SEC INR 1.7 H (0.9-1.2) Sodium 144 (135-145) mmol/L Potassium 3.9 (3.6-5.0) mmol/L Chloride 107 (101-111) mmol/L Carbon Dioxide 21.0 (21.0-31.0) mmol/L Anion Gap 19.9 BUN 18 (7-18) mg/dL Creatinine 1.3 (0.6-1.3) mg/dL Est Cr Clr Drug Dosing TNP Estimated GFR (MDRD) 54 BUN/Creatinine Ratio 13.84 Glucose 107 H (74-105) mg/dL Calcium 9.2 (8.4-10.2) mg/dl Total Bilirubin 0.5 (0.2-1.0) mg/dL AST 23 (10-42) IU/L ALT 14 (10-60) IU/L Alkaline Phosphatase 55 (42-121) IU/L Troponin I < 0.02 (0.00-0.02) ng/ml Total Protein 6.7 (6.7-8.2) g/dl Albumin 3.9 (3.2-5.5) g/dl Globulin 2.8 Albumin/Globulin Ratio 1.39 Meds: Medications Discontinued Medications Generic Name Dose Route Start Last Admin Trade Name Freq PRN Reason Stop Dose Admin Aspirin 324 mg 10/18/16 00:44 10/18/16 00:53 Aspirin PO 10/18/16 00:45 324 mg ONETIME ONE Administration Hydromorphone HCl 0.5 mg 10/18/16 00:45 10/18/16 00:53 Dilaudid IVPUSH 10/18/16 00:46 0.5 mg ONETIME ONE Administration Hydromorphone HCl 1 mg 10/18/16 01:25 10/18/16 01:30 Dilaudid IVPUSH 10/18/16 01:26 1 mg ONETIME ONE Administration Lorazepam 1 mg 10/18/16 00:45 10/18/16 00:54 Ativan IVPUSH 10/18/16 00:46 1 mg ONETIME ONE Administration Departure - Departure Time of Disposition: 01:59 Disposition: Home, Self-Care 01 Condition: Fair Clinical Impression: Atypical chest pain Instructions: Nonspecific Chest Pain Forms: ED Department Discharge Care Plan Goals: The patient was advised of the examination, lab, EKG and x-ray results during the visit. If the patient has any additional symptoms or concerns, the patient should follow-up with his primary care facility or return to the emergency department. - My Orders Last 24 Hours: My Active Orders 10/18/16 00:39 EKG Documentation Completion [RC] URGENT Chest 1V Frontal [CR] Urgent - Assessment/Plan Last 24 Hours: My Active Orders 10/18/16 00:39 EKG Documentation Completion [RC] URGENT Chest 1V Frontal [CR] Urgent
[2016-10-18 01:04] LABS: CHLORIDE,CL 107 mmol/L (101-111); SODIUM,NA 144 mmol/L (135-145)
--- NOTE | 2016-10-20 13:01 | EKG ---
10/18/2016 - JUAN A PRUETT - A 12-lead EKG shows atrial fibrillation with rapid ventricular response with heart rate of 143, and no acute ST elevation or ST depression noted on this 12- lead EKG. [facility] /[id number]
== END 2016-10-18 02:12 | disposition home or self-care (01) ==
LOC: DL.ED 00:31
DX: R07.89 Other chest pain (principal); H54.7 Unspecified visual loss; I48.91 Unspecified atrial fibrillation; E78.00 Pure hypercholesterolemia, unspecified; I10 Essential (primary) hypertension; I25.119 Atherosclerotic heart disease of native coronary artery with unspecified angina pectoris; K21.9 Gastro-esophageal reflux disease without esophagitis; E05.90 Thyrotoxicosis, unspecified without thyrotoxic crisis or storm; Z88.8 Allergy status to other drugs, medicaments and biological substances; Z79.899 Other long term (current) drug therapy
CPT/HCPCS: 36415; 71010; 80053; 84484; 85025; 85610; 93005; 96374; 96375; 96376; 99285; A9270; J1170; J2060; 93010; 99284

== ENCOUNTER 2016-10-27 21:38 | Emergency (ER) | payer MEDICARE, BC ==
[2016-10-27] MEDS ORDERED: LORazepam 2 MG/ML Syringe IVPUSH ONE (21:52)
--- NOTE | 2016-10-27 21:53 | EDM.PDOC ---
ED HPI GENERAL MEDICAL PROBLEM - General Stated Complaint: HEART ATTACK Time Seen by Provider: 10/27/16 21:49 Source of Information: Reports: Patient History Limitations: Reports: No Limitations - History of Present Illness INITIAL COMMENTS - FREE TEXT/NARRATIVE: sudden onset chest pain while he was sleeping, feels like he is having heart attack. this time feels worse than previous. mid chest down both arms & up both jaws. states referred to [place] and has return appt' end of month. - Related Data Allergies Allergy/AdvReac Type Severity Reaction Status Date / Time naproxen Allergy Hives Verified 10/27/16 22:04 propoxyphene Allergy Hives Verified 10/27/16 22:04 Home Meds: Home Meds EPINEPHrine [Epipen 2-Anthony] 0.3 mg IM ASDIRECTED PRN 01/10/14 [History] Fish Oil/[place]-3 Fatty Acids [Fish Oil 1,000 MG] 1 cap PO BID 01/10/14 [History] Metoprolol Tartrate [Lopressor] 25 mg PO BID 01/10/14 [History] Multivitamin [Multi-Vitamin Daily] 1 tab PO DAILY 01/10/14 [History] Omeprazole [Prilosec] 20 mg PO DAILY 01/10/14 [History] Rosuvastatin [Crestor] 40 mg PO DAILY 01/10/14 [History] Sildenafil [Viagra] 100 mg PO ASDIRECTED PRN 01/10/14 [History] Acetaminophen [Tylenol Arthritis Pain] 650 mg PO Q6H PRN 01/16/14 [History] Fluocinolone Acetonide [Synalar 0.025% Cream] 15 gm .XX DAILY PRN 01/16/14 [ History] Cjnrsbsp-Gcplcmw-Xzat 149-Hyal [Glucosamine Chondroitin Complx] 1 each PO BID [History] Warfarin [Coumadin] 5 mg PO DAILY 07/14/16 [History] oxyCODONE HCl/Acetaminophen [oxyCODONE-Acetaminophen 5-325] 1 tab PO BID PRN 05/27 [History] Aspirin 81 mg PO DAILY tab.chew 07/15/16 [Rx] LORazepam [Ativan] 1 mg PO BID #30 tablet 07/15/16 [Rx] Methimazole 5 mg PO DAILY 07/16/16 [History] Nitroglycerin [Nitrostat] 0.4 mg SL ASDIRECTED PRN 07/17/16 [History] Cranberry 1 tab PO BID 09/03/16 [History] Lycopene 25 mg PO DAILY 09/03/16 [History] Past Medical History HEENT History: Reports: Impaired Vision Cardiovascular History: Reports: Afib, Angina, CAD, High Cholesterol, Hypertension Respiratory History: Reports: None Gastrointestinal History: Reports: GERD Genitourinary History: Reports: None Musculoskeletal History: Reports: None Neurological History: Reports: None Psychiatric History: Reports: None Endocrine/Metabolic History: Reports: Hyperthyroidism Hematologic History: Reports: None Immunologic History: Reports: None Oncologic (Cancer) History: Reports: None Dermatologic History: Reports: None - Infectious Disease History Infectious Disease History: Reports: None - Past Surgical History Head Surgeries/Procedures: Reports: None Social & Family History - Family History Family Medical History: Noncontributory - Tobacco Use Smoking Status *Q: Never Smoker Used Tobacco, but Quit: No Month Tobacco Last Used: 1985 Second Hand Smoke Exposure: No - Caffeine Use Caffeine Use: Reports: Coffee - Alcohol Use Days Per Week of Alcohol Use: 7 Number of Drinks Per Day: 2 Total Drinks Per Week: 14 - Recreational Drug Use Recreational Drug Use: No ED ROS GENERAL - Review of Systems Review Of Systems: ROS reveals no pertinent complaints other than HPI. ED EXAM, GENERAL - Physical Exam Exam: See Below Exam Limited By: No Limitations General Appearance: Alert, WD/WN, Mild Distress, Other (upset tearful) Ears: Hearing Grossly Normal Throat/Mouth: Normal Voice, No Airway Compromise Head: Atraumatic Neck: Non-Tender, Full Range of Motion Respiratory/Chest: No Respiratory Distress Cardiovascular: Regular Rate, Rhythm GI/Abdominal: Soft, Non-Tender Neurological: Alert, Oriented, Normal Cognition, Normal Gait, No Motor/Sensory Deficits Psychiatric: Flat Affect, Tearful Skin Exam: Warm, Dry, Normal Color Lymphatic: No Adenopathy Course - Vital Signs Last Recorded V/S: Last Vital Signs Temp 36.0 C 10/27/16 21:42 Pulse 86 10/27/16 21:42 Resp 17 10/27/16 21:42 BP 122/66 10/27/16 21:42 Pulse Ox 98 10/27/16 21:42 - Orders/Labs/Meds Orders: Active Orders 24 hr Category Date Time Status EKG 12 Lead [EKG Documentation Completion] [RC] STAT Care 10/27/16 21:42 Active Labs: Laboratory Tests 10/27/16 10/27/16 10/27/16 Range/Units 21:50 21:50 21:50 WBC 6.4 (5.0-10.0) 10^3/uL RBC 4.30 L (4.6-6.2) 10^6/uL Hgb 13.2 L (14.0-18.0) g/dL Hct 40.2 (40.0-54.0) % MCV 93.5 (80-100) fL MCH 30.7 (27.0-34.0) pg MCHC 32.8 L (33.0-35.0) g/dL Plt Count 119 L (150-450) 10^3/uL Neut % (Auto) 44.1 (42.2-75.2) % Lymph % (Auto) 44.0 (20.5-50.1) % [place] % (Auto) 7.8 (2-8) % Eos % (Auto) 3.8 H (1.0-3.0) % Baso % (Auto) 0.3 (0.0-1.0) % D-Dimer, Quantitative < 100 (0-400) ng/mL Sodium 141 (135-145) mmol/L Potassium 3.8 (3.6-5.0) mmol/L Chloride 103 (101-111) mmol/L Carbon Dioxide 24.0 (21.0-31.0) mmol/L Anion Gap 17.8 BUN 18 (7-18) mg/dL Creatinine 1.2 (0.6-1.3) mg/dL Est Cr Clr Drug Dosing 73.35 mL/min Estimated GFR (MDRD) 59 BUN/Creatinine Ratio 15.00 Glucose 135 H (74-105) mg/dL Calcium 9.2 (8.4-10.2) mg/dl Total Bilirubin 0.3 (0.2-1.0) mg/dL AST 22 (10-42) IU/L ALT 16 (10-60) IU/L Alkaline Phosphatase 58 (42-121) IU/L Troponin I < 0.02 (0.00-0.02) ng/ml B-Natriuretic Peptide 58 (0-100) pg/ml Total Protein 7.0 (6.7-8.2) g/dl Albumin 4.0 (3.2-5.5) g/dl Globulin 3.0 Albumin/Globulin Ratio 1.33 Meds: Medications Discontinued Medications Generic Name Dose Route Start Last Admin Trade Name Dana PRN Reason Stop Dose Admin Hydromorphone HCl 1 mg 10/27/16 22:33 10/27/16 22:37 Dilaudid IVPUSH 10/27/16 22:34 1 mg ONETIME ONE Administration Lorazepam 2 mg 10/27/16 21:52 10/27/16 22:12 Ativan IVPUSH 10/27/16 21:53 2 mg ONETIME ONE Administration - Re-Assessments/Exams Free Text/Narrative Re-Assessment/Exam: 10/27/16 22:34 re-exam; feeling better s/p ativan but still has some pain. states last visit dilaudid helped the pain and he has appt next week in [place] Departure - Departure Time of Disposition: 22:52 Disposition: Home, Self-Care 01 Condition: Good Clinical Impression: Atypical chest pain Instructions: Nonspecific Chest Pain, Jfhb-jt-Wbke Forms: ED Department Discharge Additional Instructions: 1) rest 2) notify [place] doctor tomorrow about tonight's event 3) recheck as needed - My Orders Last 24 Hours: My Active Orders 10/27/16 21:42 EKG 12 Lead [EKG Documentation Completion] [RC] STAT - Assessment/Plan Last 24 Hours: My Active Orders 10/27/16 21:42 EKG 12 Lead [EKG Documentation Completion] [RC] STAT
[2016-10-27 22:02] VITALS: BP 122/66
[2016-10-27 22:17] LABS: CHLORIDE,CL 103 mmol/L (101-111); SODIUM,NA 141 mmol/L (135-145)
[2016-10-27] MEDS ORDERED: HYDROmorphone 1 MG/ML Syringe IVPUSH ONE (22:33)
--- NOTE | 2016-10-30 10:21 | EKG ---
10/27/2016 - JUAN A PRUETT - EKG is sinus rhythm with a rate of 80, normal DC interval. There is a left axis deviation. There are nonspecific ST-T wave changes on the lateral leads. EKG otherwise within normal limits. There are no signs of acute myocardial injury. [facility] /[id number]
== END 2016-10-27 22:52 | disposition home or self-care (01) ==
LOC: DL.ED 21:38
DX: R07.89 Other chest pain (principal); I10 Essential (primary) hypertension; I25.10 Atherosclerotic heart disease of native coronary artery without angina pectoris; I48.91 Unspecified atrial fibrillation; E78.00 Pure hypercholesterolemia, unspecified; K21.9 Gastro-esophageal reflux disease without esophagitis; E05.90 Thyrotoxicosis, unspecified without thyrotoxic crisis or storm; Z79.82 Long term (current) use of aspirin; Z79.899 Other long term (current) drug therapy; Z88.8 Allergy status to other drugs, medicaments and biological substances; Z79.01 Long term (current) use of anticoagulants
CPT/HCPCS: 36415; 80053; 83880; 84484; 85025; 85379; 93005; 93010; 96374; 96375; 99285; J1170; J2060; 99284

== ENCOUNTER 2016-11-06 21:34 | Emergency (ER) | payer MEDICARE, BC ==
[2016-11-06 23:47] LABS: CHLORIDE,CL 104 mmol/L (101-111); SODIUM,NA 141 mmol/L (135-145)
[2016-11-07] MEDS ORDERED: Aspirin 81 MG Tab.Chew PO ONE (00:10)
[2016-11-07] MEDS ORDERED: Nitroglycerin 0.4 MG Tab.SL SL ONE (00:13)
--- NOTE | 2016-11-07 00:14 | EDM.PDOC ---
ED HPI GENERAL MEDICAL PROBLEM - General Chief Complaint: Cardiovascular Problem Stated Complaint: CHEST PAINS, SOB, [id number] Time Seen by Provider: 11/07/16 00:00 Source of Information: Reports: Patient History Limitations: Reports: No Limitations - History of Present Illness INITIAL COMMENTS - FREE TEXT/NARRATIVE: ED with complaint of chest pain onset, swaking him from sleep at 830 tonight. [place] heart punding then chest pain radiating to jaw. similar to previous presentations. Noted no nausea or sweating, felt SOB at onset. Did try 2 nitro at home and only had headache no change in pain. Hx of Afib, on chronic anticogulation. recent clinic visit with Dr. Berger on Friday for routine care. Appointment set up up with [place] cardiology to assess frequent c/o of chest pain. Patient notes episodes similar at least one time per week and taking nitro at least one time per week without much improvement in pain. Sometimes discomfort will go away if he 'just sits and relaxes. Onset: Today Chest Pain Score (Numeric/FACES): 7 - Related Data Allergies Allergy/AdvReac Type Severity Reaction Status Date / Time naproxen Allergy Hives Verified 11/06/16 22:28 propoxyphene Allergy Hives Verified 11/06/16 22:28 Home Meds: Home Meds EPINEPHrine [Epipen 2-Anthony] 0.3 mg IM ASDIRECTED PRN 01/10/14 [History] Fish Oil/[place]-3 Fatty Acids [Fish Oil 1,000 MG] 1 cap PO BID 01/10/14 [History] Metoprolol Tartrate [Lopressor] 25 mg PO BID 01/10/14 [History] Multivitamin [Multi-Vitamin Daily] 1 tab PO DAILY 01/10/14 [History] Omeprazole [Prilosec] 20 mg PO DAILY 01/10/14 [History] Rosuvastatin [Crestor] 40 mg PO DAILY 01/10/14 [History] Sildenafil [Viagra] 100 mg PO ASDIRECTED PRN 01/10/14 [History] Acetaminophen [Tylenol Arthritis Pain] 650 mg PO Q6H PRN 01/16/14 [History] Fluocinolone Acetonide [Synalar 0.025% Cream] 15 gm .XX DAILY PRN 01/16/14 [ History] Gicwsnnd-Lrzoluv-Mlcz 149-Hyal [Glucosamine Chondroitin Complx] 1 each PO BID 12 /07/14 [History] Warfarin [Coumadin] 5 mg PO DAILY 07/14/16 [History] oxyCODONE HCl/Acetaminophen [oxyCODONE-Acetaminophen 5-325] 1 tab PO BID PRN 05/27 [History] Aspirin 81 mg PO DAILY tab.chew 07/15/16 [Rx] LORazepam [Ativan] 1 mg PO BID #30 tablet 07/15/16 [Rx] Methimazole 5 mg PO DAILY 07/16/16 [History] Nitroglycerin [Nitrostat] 0.4 mg SL ASDIRECTED PRN 07/17/16 [History] Cranberry 1 tab PO BID 09/03/16 [History] Lycopene 25 mg PO DAILY 09/03/16 [History] Past Medical History HEENT History: Reports: Impaired Vision Cardiovascular History: Reports: Afib, Angina, CAD, High Cholesterol, Hypertension, Stents Respiratory History: Reports: None Gastrointestinal History: Reports: GERD Genitourinary History: Reports: None Musculoskeletal History: Reports: Other (See Below) Other Musculoskeletal History: hx rib fx Neurological History: Reports: None Psychiatric History: Reports: None Endocrine/Metabolic History: Reports: Hyperthyroidism Hematologic History: Reports: None Immunologic History: Reports: None Oncologic (Cancer) History: Reports: None Dermatologic History: Reports: None - Infectious Disease History Infectious Disease History: Reports: None - Past Surgical History Head Surgeries/Procedures: Reports: None Social & Family History - Family History Family Medical History: Noncontributory - Tobacco Use Smoking Status *Q: Unknown Ever Smoked Used Tobacco, but Quit: No Month Tobacco Last Used: 1985 Second Hand Smoke Exposure: No - Caffeine Use Caffeine Use: Reports: None - Alcohol Use Days Per Week of Alcohol Use: 7 Number of Drinks Per Day: 2 Total Drinks Per Week: 14 - Recreational Drug Use Recreational Drug Use: No ED ROS GENERAL - Review of Systems Review Of Systems: See Below Constitutional: Reports: No Symptoms HEENT: Reports: No Symptoms Respiratory: Reports: Shortness of Breath (at onset non current) Cardiovascular: Reports: Chest Pain, Palpitations (punding sensation does not feel racing). Denies: Dyspnea on Exertion, Edema, Lightheadedness GI/Abdominal: Reports: No Symptoms Musculoskeletal: Reports: No Symptoms Skin: Reports: No Symptoms Neurological: Reports: No Symptoms Psychiatric: Reports: Anxiety ED EXAM, GENERAL - Physical Exam Exam: See Below Exam Limited By: No Limitations General Appearance: Alert, Anxious Eye Exam: Bilateral Eye: EOMI Ears: Normal External Exam, Normal TMs Nose: Normal Inspection Throat/Mouth: Normal Oropharynx Head: Atraumatic, Normocephalic Neck: Normal Inspection, Full Range of Motion Respiratory/Chest: No Respiratory Distress, Lungs Clear, Normal Breath Sounds Cardiovascular: Normal Peripheral Pulses, No Murmur, No Rub, Irregularly Irregular (rate controlled). No: JVD GI/Abdominal: Normal Bowel Sounds Back Exam: Full Range of Motion Extremities: Normal Inspection, Normal Range of Motion, No Pedal Edema Neurological: Alert, Oriented, Normal Cognition, Normal Gait Psychiatric: Anxious Skin Exam: Warm, Dry, Intact, Normal Color. No: Pallor, Petechiae, Rash EKG INTERPRETATION Rhythm: A-Fib Course - Vital Signs Last Recorded V/S: Last Vital Signs Temp 97.8 F 11/06/16 23:47 Pulse 100 11/07/16 00:27 Resp 18 11/07/16 00:27 BP 122/54 L 11/07/16 00:27 Pulse Ox 95 11/07/16 00:27 - Orders/Labs/Meds Orders: Active Orders 24 hr Category Date Time Status EKG 12 Lead [EKG Documentation Completion] [RC] URGENT Care 11/06/16 23:18 Active Labs: Laboratory Tests 11/06/16 11/06/16 11/06/16 Range/Units 23:23 23:23 23:23 WBC 7.2 (5.0-10.0) 10^3/uL RBC 4.22 L (4.6-6.2) 10^6/uL Hgb 12.7 L (14.0-18.0) g/dL Hct 39.4 L (40.0-54.0) % MCV 93.4 (80-100) fL MCH 30.1 (27.0-34.0) pg MCHC 32.2 L (33.0-35.0) g/dL Plt Count 120 L (150-450) 10^3/uL Neut % (Auto) 38.2 L (42.2-75.2) % Lymph % (Auto) 48.1 (20.5-50.1) % [place] % (Auto) 9.0 H (2-8) % Eos % (Auto) 4.3 H (1.0-3.0) % Baso % (Auto) 0.4 (0.0-1.0) % PT 19.2 H (9.0-12.0) SEC INR 1.9 H (0.9-1.2) Sodium 141 (135-145) mmol/L Potassium 3.6 (3.6-5.0) mmol/L Chloride 104 (101-111) mmol/L Carbon Dioxide 22.0 (21.0-31.0) mmol/L Anion Gap 18.6 BUN 19 H (7-18) mg/dL Creatinine 1.2 (0.6-1.3) mg/dL Est Cr Clr Drug Dosing 68.32 mL/min Estimated GFR (MDRD) 59 BUN/Creatinine Ratio 15.83 Glucose 117 H (74-105) mg/dL Calcium 9.0 (8.4-10.2) mg/dl Total Bilirubin 0.5 (0.2-1.0) mg/dL AST 24 (10-42) IU/L ALT 15 (10-60) IU/L Alkaline Phosphatase 57 (42-121) IU/L Troponin I < 0.02 (0.00-0.02) ng/ml B-Natriuretic Peptide (0-100) pg/ml Total Protein 6.9 (6.7-8.2) g/dl Albumin 3.9 (3.2-5.5) g/dl Globulin 3.0 Albumin/Globulin Ratio 1.30 09/27/17 Range/Units 23:23 WBC (5.0-10.0) 10^3/uL RBC (4.6-6.2) 10^6/uL Hgb (14.0-18.0) g/dL Hct (40.0-54.0) % MCV (80-100) fL MCH (27.0-34.0) pg MCHC (33.0-35.0) g/dL Plt Count (150-450) 10^3/uL Neut % (Auto) (42.2-75.2) % Lymph % (Auto) (20.5-50.1) % [place] % (Auto) (2-8) % Eos % (Auto) (1.0-3.0) % Baso % (Auto) (0.0-1.0) % PT (9.0-12.0) SEC INR (0.9-1.2) Sodium (135-145) mmol/L Potassium (3.6-5.0) mmol/L Chloride (101-111) mmol/L Carbon Dioxide (21.0-31.0) mmol/L Anion Gap BUN (7-18) mg/dL Creatinine (0.6-1.3) mg/dL Est Cr Clr Drug Dosing mL/min Estimated GFR (MDRD) BUN/Creatinine Ratio Glucose (74-105) mg/dL Calcium (8.4-10.2) mg/dl Total Bilirubin (0.2-1.0) mg/dL AST (10-42) IU/L ALT (10-60) IU/L Alkaline Phosphatase (42-121) IU/L Troponin I (0.00-0.02) ng/ml B-Natriuretic Peptide 77 (0-100) pg/ml Total Protein (6.7-8.2) g/dl Albumin (3.2-5.5) g/dl Globulin Albumin/Globulin Ratio Meds: Medications Discontinued Medications Generic Name Dose Route Start Last Admin Trade Name Freq PRN Reason Stop Dose Admin Aspirin 162 mg 11/07/16 00:10 11/07/16 00:25 Aspirin PO 11/07/16 00:11 162 mg ONETIME ONE Administration Hydromorphone HCl 1 mg 11/07/16 01:04 11/07/16 01:23 Dilaudid IVPUSH 11/07/16 01:05 1 mg ONETIME ONE Administration Hydromorphone HCl 1 mg 11/07/16 01:05 Dilaudid IVPUSH 11/07/16 01:06 ONETIME ONE Lorazepam 1 mg 11/07/16 01:06 11/07/16 01:24 Ativan PO 11/07/16 01:07 1 mg ONETIME ONE Administration Nitroglycerin 0.4 mg 11/07/16 00:13 11/07/16 00:27 Nitrostat SL 11/07/16 00:14 0.4 mg ONETIME ONE Administration - Radiology Interpretation Free Text/Narrative:: CXR negative - Re-Assessments/Exams Free Text/Narrative Re-Assessment/Exam: 11/07/16 05:58 Tiral nitrox1, no change in pain. hypotensive. BP improved when supine. Pain to anterior left chest with palpation. Ativan and Dilaudid administered, with improvement in pain and more relaxed. Departure - Departure Time of Disposition: 01:58 Disposition: Home, Self-Care 01 Condition: Fair Clinical Impression: Atypical chest pain, Atrial fibrillation with controlled ventricular response Instructions: Atrial Fibrillation, [id number] Forms: ED Department Discharge Additional Instructions: rest follow up with cardiology as scheduled - My Orders Last 24 Hours: My Active Orders 11/06/16 23:18 EKG 12 Lead [EKG Documentation Completion] [RC] URGENT - Assessment/Plan Last 24 Hours: My Active Orders 11/06/16 23:18 EKG 12 Lead [EKG Documentation Completion] [RC] URGENT
[2016-11-07] MEDS ORDERED: HYDROmorphone 1 MG/ML Syringe IVPUSH ONE ×2 (01:04→01:05)
[2016-11-07] MEDS ORDERED: LORazepam 1 MG Tab PO ONE (01:06)
[2016-11-07 02:13] VITALS: BP 119/69
--- NOTE | 2016-11-08 13:51 | EKG ---
11/06/2016- JUAN A PRUETT - EKG per my reading shows atrial fibrillation at a rate of around 80s. [facility] /[id number]
== END 2016-11-07 02:05 | disposition home or self-care (01) ==
LOC: DL.ED 21:34
DX: I48.91 Unspecified atrial fibrillation (principal); R07.89 Other chest pain; I25.10 Atherosclerotic heart disease of native coronary artery without angina pectoris; E78.00 Pure hypercholesterolemia, unspecified; I10 Essential (primary) hypertension; K21.9 Gastro-esophageal reflux disease without esophagitis; E05.90 Thyrotoxicosis, unspecified without thyrotoxic crisis or storm; Z79.899 Other long term (current) drug therapy; Z88.8 Allergy status to other drugs, medicaments and biological substances; R06.02 Shortness of breath
CPT/HCPCS: 36415; 71020; 80053; 83880; 84484; 85025; 85610; 93005; 93010; 96374; 99285; A9270; J1170; 99284

== ENCOUNTER 2016-11-19 00:13 | Emergency (ER) | payer MEDICARE, BC ==
--- NOTE | 2016-11-19 00:31 | EDM.PDOC ---
ED HPI GENERAL MEDICAL PROBLEM - General Chief Complaint: Chest Pain Stated Complaint: CHEST PAINS Time Seen by Provider: 11/19/16 00:30 Source of Information: Reports: Patient History Limitations: Reports: No Limitations - History of Present Illness INITIAL COMMENTS - FREE TEXT/NARRATIVE: ED with c/o chest pain onset 0 while sleeping. Pain worse than usual and felt SOB with this episode. Reports scheduled to have pacemaker placed on . Known hx of a fib. Patient well known to ED for similar c/o. Onset: Today Chest Pain Score (Numeric/FACES): 7 - Related Data Allergies Allergy/AdvReac Type Severity Reaction Status Date / Time naproxen Allergy Hives Verified 11/19/16 00:34 propoxyphene Allergy Hives Verified 11/19/16 00:34 Home Meds: Home Meds EPINEPHrine [Epipen 2-Anthony] 0.3 mg IM ASDIRECTED PRN 01/10/14 [History] Fish Oil/[place]-3 Fatty Acids [Fish Oil 1,000 MG] 1 cap PO BID 01/10/14 [History] Metoprolol Tartrate [Lopressor] 25 mg PO BID 01/10/14 [History] Multivitamin [Multi-Vitamin Daily] 1 tab PO DAILY 01/10/14 [History] Omeprazole [Prilosec] 20 mg PO DAILY 01/10/14 [History] Rosuvastatin [Crestor] 40 mg PO DAILY 01/10/14 [History] Sildenafil [Viagra] 100 mg PO ASDIRECTED PRN 01/10/14 [History] Acetaminophen [Tylenol Arthritis Pain] 650 mg PO Q6H PRN 01/16/14 [History] Fluocinolone Acetonide [Synalar 0.025% Cream] 15 gm .XX DAILY PRN 01/16/14 [ History] Ileefjeu-Decqsgu-Glvi 149-Hyal [Glucosamine Chondroitin Complx] 1 each PO BID [History] Warfarin [Coumadin] 5 mg PO DAILY 07/14/16 [History] oxyCODONE HCl/Acetaminophen [oxyCODONE-Acetaminophen 5-325] 1 tab PO BID PRN 05/27 [History] Aspirin 81 mg PO DAILY tab.chew 07/15/16 [Rx] LORazepam [Ativan] 1 mg PO BID #30 tablet 07/15/16 [Rx] Methimazole 5 mg PO DAILY 07/16/16 [History] Nitroglycerin [Nitrostat] 0.4 mg SL ASDIRECTED PRN 07/17/16 [History] Cranberry 1 tab PO BID 09/03/16 [History] Lycopene 25 mg PO DAILY 09/03/16 [History] Gabapentin [Neurontin] 600 mg PO BID 11/19/16 [History] Past Medical History HEENT History: Reports: Impaired Vision Cardiovascular History: Reports: Afib, Angina, CAD, High Cholesterol, Hypertension, Stents Respiratory History: Reports: None Gastrointestinal History: Reports: GERD Genitourinary History: Reports: None Musculoskeletal History: Reports: Other (See Below) Other Musculoskeletal History: hx rib fx Neurological History: Reports: None Psychiatric History: Reports: None Endocrine/Metabolic History: Reports: Hyperthyroidism Hematologic History: Reports: None Immunologic History: Reports: None Oncologic (Cancer) History: Reports: None Dermatologic History: Reports: None - Infectious Disease History Infectious Disease History: Reports: None - Past Surgical History Head Surgeries/Procedures: Reports: None Social & Family History - Family History Family Medical History: Noncontributory - Tobacco Use Smoking Status *Q: Unknown Ever Smoked Used Tobacco, but Quit: No Month Tobacco Last Used: 1985 Second Hand Smoke Exposure: No - Caffeine Use Caffeine Use: Reports: None - Alcohol Use Days Per Week of Alcohol Use: 7 Number of Drinks Per Day: 2 Total Drinks Per Week: 14 - Recreational Drug Use Recreational Drug Use: No ED ROS GENERAL - Review of Systems Review Of Systems: See Below Constitutional: Reports: No Symptoms HEENT: Reports: No Symptoms Respiratory: Reports: No Symptoms Cardiovascular: Reports: Chest Pain, Edema (left) GI/Abdominal: Reports: No Symptoms Musculoskeletal: Reports: No Symptoms Skin: Reports: No Symptoms Neurological: Reports: No Symptoms ED EXAM, GENERAL - Physical Exam Exam: See Below Exam Limited By: No Limitations General Appearance: Alert, Mild Distress Eye Exam: Bilateral Eye: EOMI Ears: Normal External Exam Nose: Normal Inspection Throat/Mouth: Normal Inspection, Normal Lips Head: Atraumatic, Normocephalic Neck: Normal Inspection Respiratory/Chest: No Respiratory Distress, Decreased Breath Sounds (bases) Cardiovascular: Tachycardia (110-144 irregular), Irregularly Irregular GI/Abdominal: Normal Bowel Sounds, Soft, Non-Tender Back Exam: Normal Inspection, Full Range of Motion Extremities: Normal Inspection Neurological: Alert, Oriented, Normal Cognition Psychiatric: Anxious Skin Exam: Warm, Dry, Pallor EKG INTERPRETATION Rhythm: NSR Course - Vital Signs Last Recorded V/S: Last Vital Signs Temp 97 F 11/19/16 01:13 Pulse 105 H 11/19/16 01:13 Resp 16 11/19/16 01:13 BP 99/58 L 11/19/16 01:13 Pulse Ox 92 L 11/19/16 01:13 - Orders/Labs/Meds Orders: Active Orders 24 hr Category Date Time Status EKG Documentation Completion [RC] URGENT Care 11/19/16 00:28 Active CXR [Chest 1V Frontal] [CR] Urgent Exams 11/19/16 00:41 Ordered Diltiazem 100 MG in NS Adv @ 5 MG/HR(100ml) Med 11/19/16 01:17 Ordered Diltiazem [Cardizem] 100 mg Sodium Chloride 0.9% [Normal Saline] 100 ml IV TITRATE Medication Orders Diltiazem HCl 100 mg/ Sodium (Chloride) 100 mls @ 5 mls/hr IV TITRATE ONE; 5 MG /HR PRN Reason: Protocol Stop: 11/19/16 21:16 Labs: Laboratory Tests 11/19/16 11/19/16 11/19/16 Range/Units 00:35 00:35 00:35 WBC 6.2 (5.0-10.0) 10^3/uL RBC 3.98 L (4.6-6.2) 10^6/uL Hgb 11.9 L (14.0-18.0) g/dL Hct 36.8 L (40.0-54.0) % MCV 92.5 (80-100) fL MCH 29.9 (27.0-34.0) pg MCHC 32.3 L (33.0-35.0) g/dL Plt Count 125 L (150-450) 10^3/uL Neut % (Auto) 38.3 L (42.2-75.2) % Lymph % (Auto) 47.8 (20.5-50.1) % Falls % (Auto) 8.3 H (2-8) % Eos % (Auto) 5.3 H (1.0-3.0) % Baso % (Auto) 0.3 (0.0-1.0) % PT 20.1 H (9.0-12.0) SEC INR 2.0 H (0.9-1.2) D-Dimer, Quantitative < 100 (0-400) ng/mL Sodium 142 (135-145) mmol/L Potassium 3.6 (3.6-5.0) mmol/L Chloride 107 (101-111) mmol/L Carbon Dioxide 24.0 (21.0-31.0) mmol/L Anion Gap 14.6 BUN 16 (7-18) mg/dL Creatinine 1.1 (0.6-1.3) mg/dL Est Cr Clr Drug Dosing TNP Estimated GFR (MDRD) > 60 BUN/Creatinine Ratio 14.54 Glucose 116 H (74-105) mg/dL Calcium 8.7 (8.4-10.2) mg/dl Total Bilirubin 0.4 (0.2-1.0) mg/dL AST 23 (10-42) IU/L ALT 13 (10-60) IU/L Alkaline Phosphatase 55 (42-121) IU/L CK-MB (CK-2) (0.4-4.7) ng/mL Troponin I < 0.02 (0.00-0.02) ng/ml B-Natriuretic Peptide 118 H (0-100) pg/ml Total Protein 6.2 L (6.7-8.2) g/dl Albumin 3.6 (3.2-5.5) g/dl Globulin 2.6 Albumin/Globulin Ratio 1.38 Amylase 82 (28-100) U/L Lipase 47 (22-51) U/L 11/19/16 Range/Units 00:35 WBC (5.0-10.0) 10^3/uL RBC (4.6-6.2) 10^6/uL Hgb (14.0-18.0) g/dL Hct (40.0-54.0) % MCV (80-100) fL MCH (27.0-34.0) pg MCHC (33.0-35.0) g/dL Plt Count (150-450) 10^3/uL Neut % (Auto) (42.2-75.2) % Lymph % (Auto) (20.5-50.1) % Falls % (Auto) (2-8) % Eos % (Auto) (1.0-3.0) % Baso % (Auto) (0.0-1.0) % PT (9.0-12.0) SEC INR (0.9-1.2) D-Dimer, Quantitative (0-400) ng/mL Sodium (135-145) mmol/L Potassium (3.6-5.0) mmol/L Chloride (101-111) mmol/L Carbon Dioxide (21.0-31.0) mmol/L Anion Gap BUN (7-18) mg/dL Creatinine (0.6-1.3) mg/dL Est Cr Clr Drug Dosing Estimated GFR (MDRD) BUN/Creatinine Ratio Glucose (74-105) mg/dL Calcium (8.4-10.2) mg/dl Total Bilirubin (0.2-1.0) mg/dL AST (10-42) IU/L ALT (10-60) IU/L Alkaline Phosphatase (42-121) IU/L CK-MB (CK-2) 1.50 (0.4-4.7) ng/mL Troponin I (0.00-0.02) ng/ml B-Natriuretic Peptide (0-100) pg/ml Total Protein (6.7-8.2) g/dl Albumin (3.2-5.5) g/dl Globulin Albumin/Globulin Ratio Amylase (28-100) U/L Lipase (22-51) U/L Meds: Medications Generic Name Dose Route Start Last Admin Trade Name Freq PRN Reason Stop Dose Admin Diltiazem HCl 100 mg/ Sodium 100 mls @ 5 mls/hr 11/19/16 01:17 Chloride IV 11/19/16 21:16 TITRATE ONE Protocol 5 MG/HR Discontinued Medications Generic Name Dose Route Start Last Admin Trade Name Freq PRN Reason Stop Dose Admin Diltiazem HCl 10 mg 11/19/16 00:35 11/19/16 00:47 Diltiazem IVPUSH 11/19/16 00:36 10 mg ONETIME ONE Administration Morphine Sulfate 2 mg 11/19/16 00:52 11/19/16 00:56 Morphine IVPUSH 11/19/16 00:53 2 mg ONETIME ONE Administration Morphine Sulfate 2 mg 11/19/16 01:06 11/19/16 01:11 Morphine IVPUSH 11/19/16 01:07 2 mg ONETIME ONE Administration Morphine Sulfate 4 mg 11/19/16 01:48 Morphine IVPUSH 11/19/16 01:49 ONETIME ONE Ondansetron HCl 4 mg 11/19/16 00:51 Zofran IV 11/19/16 00:52 ONETIME ONE - Radiology Interpretation Free Text/Narrative:: CXR: normal - Re-Assessments/Exams Free Text/Narrative Re-Assessment/Exam: 11/19/16 00:57 rating pain 10/10 radiating to right jaw. Rate 110's. No nausea. 11/19/16 01:56 Brief improvement with morphine. lowest rating 6-7/10, no appearance of distress. Conversing with staff. Skin dry. rate 80-110, continued O@ at 2L with sats 93-95%, TC consult Dr. Calabrese. Agreeable to tx. Per MD report, patient had angiogram 8 weeks ago that was negative. at bedside. Tx via LRAS stable condition. Departure - Departure Time of Disposition: 02:04 Disposition: DC/Tfer to Acute Hospital 02 Reason for Transfer *Q: Other Condition: Fair Clinical Impression: Atrial fibrillation with rapid ventricular response Forms: ED Department Discharge - My Orders Last 24 Hours: My Active Orders 11/19/16 00:28 EKG Documentation Completion [RC] URGENT 11/19/16 00:41 CXR [Chest 1V Frontal] [CR] Urgent 11/19/16 01:17 Diltiazem 100 MG in NS Adv @ 5 MG/HR(100ml) Diltiazem [Cardizem] 100 mg Sodium Chloride 0.9% [Normal Saline] 100 ml IV TITRATE - Assessment/Plan Last 24 Hours: My Active Orders 11/19/16 00:28 EKG Documentation Completion [RC] URGENT 11/19/16 00:41 CXR [Chest 1V Frontal] [CR] Urgent 11/19/16 01:17 Diltiazem 100 MG in NS Adv @ 5 MG/HR(100ml) Diltiazem [Cardizem] 100 mg Sodium Chloride 0.9% [Normal Saline] 100 ml IV TITRATE
[2016-11-19] MEDS ORDERED: Diltiazem 25 MG/5 ML SDV IVPUSH ONE (00:35)
[2016-11-19] MEDS ORDERED: Ondansetron 4 MG/2 ML SDV IV ONE (00:51)
[2016-11-19] MEDS ORDERED: Morphine 2 MG/ML Syringe IVPUSH ONE ×2 (00:52→01:06)
[2016-11-19 01:03] LABS: CHLORIDE,CL 107 mmol/L (101-111); SODIUM,NA 142 mmol/L (135-145)
[2016-11-19 01:14] VITALS: BP 99/58
[2016-11-19] MEDS ORDERED: Diltiazem 100 MG in Sodium Chloride 0.9% 100 ML IV ONE (01:17)
[2016-11-19] MEDS ORDERED: Morphine 4 MG/ML Syringe IVPUSH ONE (01:48)
--- NOTE | 2016-11-20 16:35 | EKG ---
11/19/2016 - JUAN A PRUETT - A 12-lead EKG shows atrial fibrillation with rapid ventricular response, heart rate of 136. No significant ST elevation or ST depression noted on this 12-lead EKG. Borderline T-wave abnormalities noted. [facility] /[id number]
== END 2016-11-19 02:19 ==
LOC: DL.ED 00:13
DX: I48.91 Unspecified atrial fibrillation (principal); I10 Essential (primary) hypertension; E05.90 Thyrotoxicosis, unspecified without thyrotoxic crisis or storm; K21.9 Gastro-esophageal reflux disease without esophagitis; I25.119 Atherosclerotic heart disease of native coronary artery with unspecified angina pectoris; Z79.899 Other long term (current) drug therapy; Z88.8 Allergy status to other drugs, medicaments and biological substances; Z87.891 Personal history of nicotine dependence
CPT/HCPCS: 36415; 71010; 80053; 82150; 82553; 83690; 83880; 84484; 85025; 85379; 85610; 93005; 93010; 96374; 96375; 96376; 99285; J2270; J3490

== ENCOUNTER 2016-11-26 21:28 | Observation (INO) | payer MEDICARE, BC ==
[2016-11-26] MEDS ORDERED: Diltiazem 25 MG/5 ML SDV IVPUSH ONE (21:42)
[2016-11-26] MEDS ORDERED: Sodium Chloride 0.9% 1,000 ML IV SCH (21:45)
[2016-11-26] MEDS ORDERED: Morphine 2 MG/ML Syringe IVPUSH ONE ×2 (21:46→22:44)
[2016-11-26] MEDS ORDERED: Ondansetron 4 MG/2 ML SDV IV ONE (21:47)
[2016-11-26 22:14] LABS: CHLORIDE,CL 104 mmol/L (101-111); SODIUM,NA 140 mmol/L (135-145)
[2016-11-26] MEDS ORDERED: Metoprolol Tartrate 25 MG Tab PO ONE (22:44)
[2016-11-26] MEDS ORDERED: Acetaminophen/oxyCODONE 325-5 MG Tab PO ONE (23:49)
--- NOTE | 2016-11-27 00:04 | EDM.PDOC ---
ED HPI GENERAL MEDICAL PROBLEM - General Chief Complaint: Chest Pain Stated Complaint: CHEST PAINS, [id number] Time Seen by Provider: 11/26/16 21:35 Source of Information: Reports: Patient History Limitations: Reports: No Limitations - History of Present Illness INITIAL COMMENTS - FREE TEXT/NARRATIVE: ED with complaint of chest pain- sharp shooting radiating up to jaw. Patient has been seen multiple times for similar complaint. Patient transferred one week ago with same pain , chronic atrial fibrillation with RVR. Patient has had clear angiogram less than 3 months ago. Is scheduled for pacemaker on . Patient reports while in hospital last week he was told to take his oxycodone with onset of pain. Tonight he took 2 Nitro at 2114. Admitted that he forgot that he was told to take oxycodone by publications manager. Onset: Today (2099) Location: Reports: Chest Quality: Reports: Sharp (radiating to jaw, similar to previous episodes.) Associated Symptoms: Reports: Chest Pain, Other (felt heart beating fast) Mid-Sternal Chest Pain Score (Numeric/FACES): 8 - Related Data Allergies Allergy/AdvReac Type Severity Reaction Status Date / Time naproxen Allergy Hives Verified 11/26/16 21:35 propoxyphene Allergy Hives Verified 11/26/16 21:35 Home Meds: Home Meds EPINEPHrine [Epipen 2-Anthony] 0.3 mg IM ASDIRECTED PRN 01/10/14 [History] Fish Oil/[place]-3 Fatty Acids [Fish Oil 1,000 MG] 1 cap PO BID 01/10/14 [History] Metoprolol Tartrate [Lopressor] 25 mg PO BID 01/10/14 [History] Multivitamin [Multi-Vitamin Daily] 1 tab PO DAILY 01/10/14 [History] Omeprazole [Prilosec] 20 mg PO DAILY 01/10/14 [History] Rosuvastatin [Crestor] 40 mg PO DAILY 01/10/14 [History] Sildenafil [Viagra] 100 mg PO ASDIRECTED PRN 01/10/14 [History] Acetaminophen [Tylenol Arthritis Pain] 650 mg PO Q6H PRN 01/16/14 [History] Fluocinolone Acetonide [Synalar 0.025% Cream] 15 gm .XX DAILY PRN 01/16/14 [ History] Bgivuciw-Ojhsycu-Wibu 149-Hyal [Glucosamine Chondroitin Complx] 1 each PO BID [History] Warfarin [Coumadin] 5 mg PO DAILY 07/14/16 [History] oxyCODONE HCl/Acetaminophen [oxyCODONE-Acetaminophen 5-325] 1 tab PO BID PRN 05/27 [History] Aspirin 81 mg PO DAILY tab.chew 07/15/16 [Rx] LORazepam [Ativan] 1 mg PO BID #30 tablet 07/15/16 [Rx] Methimazole 5 mg PO DAILY 07/16/16 [History] Nitroglycerin [Nitrostat] 0.4 mg SL ASDIRECTED PRN 07/17/16 [History] Cranberry 1 tab PO BID 09/03/16 [History] Lycopene 25 mg PO DAILY 09/03/16 [History] Gabapentin [Neurontin] 600 mg PO BID 11/19/16 [History] Past Medical History HEENT History: Reports: Impaired Vision Cardiovascular History: Reports: Afib, Angina, CAD, High Cholesterol, Hypertension, Stents Respiratory History: Reports: None Gastrointestinal History: Reports: GERD Genitourinary History: Reports: None Musculoskeletal History: Reports: Other (See Below) Other Musculoskeletal History: hx rib fx Neurological History: Reports: None Psychiatric History: Reports: None Endocrine/Metabolic History: Reports: Hyperthyroidism Hematologic History: Reports: None Immunologic History: Reports: None Oncologic (Cancer) History: Reports: None Dermatologic History: Reports: None - Infectious Disease History Infectious Disease History: Reports: None - Past Surgical History Head Surgeries/Procedures: Reports: None Social & Family History - Family History Family Medical History: Noncontributory - Tobacco Use Smoking Status *Q: Never Smoker Used Tobacco, but Quit: No Month Tobacco Last Used: 1985 Second Hand Smoke Exposure: No - Caffeine Use Caffeine Use: Reports: None - Alcohol Use Days Per Week of Alcohol Use: 7 Number of Drinks Per Day: 2 Total Drinks Per Week: 14 - Recreational Drug Use Recreational Drug Use: No ED ROS GENERAL - Review of Systems Review Of Systems: See Below HEENT: Reports: No Symptoms Respiratory: Reports: No Symptoms. Denies: Wheezing, Cough Cardiovascular: Reports: Chest Pain, Palpitations. Denies: Dyspnea on Exertion , Edema, Lightheadedness GI/Abdominal: Reports: No Symptoms Musculoskeletal: Reports: No Symptoms Skin: Reports: No Symptoms Neurological: Reports: No Symptoms ED EXAM, GENERAL - Physical Exam Exam: See Below Exam Limited By: No Limitations General Appearance: Alert, Anxious Eye Exam: Bilateral Eye: EOMI Ears: Normal External Exam, Normal TMs Nose: Normal Inspection Throat/Mouth: Normal Inspection Head: Atraumatic, Normocephalic Respiratory/Chest: No Respiratory Distress, Lungs Clear, Normal Breath Sounds Cardiovascular: Normal Peripheral Pulses, Tachycardia, Irregularly Irregular GI/Abdominal: Normal Bowel Sounds Back Exam: Normal Inspection Extremities: Pedal Edema (trace) Neurological: Alert, Oriented, Normal Cognition Psychiatric: Flat Affect Skin Exam: Warm, Dry, Intact, Normal Color Course - Vital Signs Last Recorded V/S: Last Vital Signs Temp 97.5 F 11/26/16 21:30 Pulse 129 H 11/26/16 23:12 Resp 18 11/26/16 21:30 BP 105/52 L 11/26/16 23:12 Pulse Ox 92 L 11/26/16 21:30 - Orders/Labs/Meds Orders: Active Orders 24 hr Category Date Time Status Patient Status [ADT] Routine ADT 11/27/16 00:53 Active Cardiac Monitoring [RC] CONTINUOUS Care 11/27/16 00:56 Active EKG 12 Lead [EKG Documentation Completion] [RC] URGENT Care 11/26/16 21:39 Active Oxygen Therapy [RC] PRN Care 11/27/16 00:53 Active Up ad Jasmine [RC] ASDIRECTED Care 11/27/16 00:53 Active VTE/DVT Education [RC] PER UNIT ROUTINE Care 11/27/16 00:53 Active Vital Signs [RC] Q4H Care 11/27/16 00:53 Active Regular Diet [DIET] Diet 11/27/16 Breakfast Active TROPONIN I [CHEM] Routine Lab 11/27/16 05:53 Ordered Acetaminophen [Tylenol Arthritis Pain] Med 11/27/16 01:00 Active 650 mg PO Q6H PRN Cranberry [Cranberry] Med 11/27/16 09:00 Active 1 tab PO BID Metoprolol Tartrate [Lopressor] Med 11/27/16 08:15 Active 50 mg PO Q12H Ondansetron [Zofran] Med 11/27/16 00:53 Active 4 mg IVPUSH Q6H PRN Sodium Chloride 0.9% [Normal Saline] 1,000 ml Med 11/26/16 21:45 Active IV ASDIRECTED Resuscitation Status Routine Resus Stat 11/27/16 00:53 Ordered Medication Orders Sodium Chloride (Normal Saline) 1,000 mls @ 999 mls/hr IV ASDIRECTED BRYAN Last Admin: 11/26/16 21:48 Dose: 999 mls/hr Metoprolol Tartrate (Lopressor) 50 mg PO Q12H BRYAN Non-Formulary Medication (Acetaminophen [Tylenol Arthritis Pain]) 650 mg PO Q6H PRN PRN Reason: Pain Non-Formulary Medication (Cranberry [Cranberry]) 1 tab PO BID BRYAN Ondansetron HCl (Zofran) 4 mg IVPUSH Q6H PRN PRN Reason: Nausea/Vomiting Labs: Laboratory Tests 11/26/16 11/26/16 11/26/16 Range/Units 21:47 21:47 21:47 WBC 7.3 (5.0-10.0) 10^3/uL RBC 4.05 L (4.6-6.2) 10^6/uL Hgb 12.2 L (14.0-18.0) g/dL Hct 37.5 L (40.0-54.0) % MCV 92.6 (80-100) fL MCH 30.1 (27.0-34.0) pg MCHC 32.5 L (33.0-35.0) g/dL Plt Count 130 L (150-450) 10^3/uL Neut % (Auto) 44.7 (42.2-75.2) % Lymph % (Auto) 40.3 (20.5-50.1) % [place] % (Auto) 10.9 H (2-8) % Eos % (Auto) 4.0 H (1.0-3.0) % Baso % (Auto) 0.1 (0.0-1.0) % PT 14.7 H (9.0-12.0) SEC INR 1.5 H (0.9-1.2) Sodium 140 (135-145) mmol/L Potassium 3.5 L (3.6-5.0) mmol/L Chloride 104 (101-111) mmol/L Carbon Dioxide 24.0 (21.0-31.0) mmol/L Anion Gap 15.5 BUN 19 H (7-18) mg/dL Creatinine 1.5 H (0.6-1.3) mg/dL Est Cr Clr Drug Dosing 54.66 mL/min Estimated GFR (MDRD) 45 BUN/Creatinine Ratio 12.66 Glucose 136 H (74-105) mg/dL Calcium 9.3 (8.4-10.2) mg/dl Magnesium 1.5 L (1.8-2.5) mg/dL Total Bilirubin 0.5 (0.2-1.0) mg/dL AST 22 (10-42) IU/L ALT 14 (10-60) IU/L Alkaline Phosphatase 60 (42-121) IU/L CK-MB (CK-2) (0.4-4.7) ng/mL Troponin I < 0.02 (0.00-0.02) ng/ml B-Natriuretic Peptide 138 H (0-100) pg/ml Total Protein 6.7 (6.7-8.2) g/dl Albumin 3.9 (3.2-5.5) g/dl Globulin 2.8 Albumin/Globulin Ratio 1.39 17/17 Range/Units 21:47 WBC (5.0-10.0) 10^3/uL RBC (4.6-6.2) 10^6/uL Hgb (14.0-18.0) g/dL Hct (40.0-54.0) % MCV (80-100) fL MCH (27.0-34.0) pg MCHC (33.0-35.0) g/dL Plt Count (150-450) 10^3/uL Neut % (Auto) (42.2-75.2) % Lymph % (Auto) (20.5-50.1) % [place] % (Auto) (2-8) % Eos % (Auto) (1.0-3.0) % Baso % (Auto) (0.0-1.0) % PT (9.0-12.0) SEC INR (0.9-1.2) Sodium (135-145) mmol/L Potassium (3.6-5.0) mmol/L Chloride (101-111) mmol/L Carbon Dioxide (21.0-31.0) mmol/L Anion Gap BUN (7-18) mg/dL Creatinine (0.6-1.3) mg/dL Est Cr Clr Drug Dosing mL/min Estimated GFR (MDRD) BUN/Creatinine Ratio Glucose (74-105) mg/dL Calcium (8.4-10.2) mg/dl Magnesium (1.8-2.5) mg/dL Total Bilirubin (0.2-1.0) mg/dL AST (10-42) IU/L ALT (10-60) IU/L Alkaline Phosphatase (42-121) IU/L CK-MB (CK-2) 1.20 (0.4-4.7) ng/mL Troponin I (0.00-0.02) ng/ml B-Natriuretic Peptide (0-100) pg/ml Total Protein (6.7-8.2) g/dl Albumin (3.2-5.5) g/dl Globulin Albumin/Globulin Ratio Meds: Medications Generic Name Dose Route Start Last Admin Trade Name Freq PRN Reason Stop Dose Admin Sodium Chloride 1,000 mls @ 999 mls/hr 11/26/16 21:45 11/26/16 21:48 Normal Saline IV 999 mls/hr ASDIRECTED BRYAN Administration Metoprolol Tartrate 50 mg 11/27/16 08:15 Lopressor PO Q12H BRYAN Non-Formulary Medication 650 mg 11/27/16 01:00 Acetaminophen [Tylenol Arthritis Pain] PO Q6H PRN Pain Non-Formulary Medication 1 tab 11/27/16 09:00 Cranberry [Cranberry] PO BID BRYAN Ondansetron HCl 4 mg 11/27/16 00:53 Zofran IVPUSH Q6H PRN Nausea/Vomiting Discontinued Medications Generic Name Dose Route Start Last Admin Trade Name Freq PRN Reason Stop Dose Admin Diltiazem HCl 10 mg 11/26/16 21:42 11/26/16 21:49 Diltiazem IVPUSH 11/26/16 21:43 10 mg ONETIME ONE Administration Metoprolol Tartrate 25 mg 11/26/16 22:44 11/26/16 23:12 Lopressor PO 11/26/16 22:45 25 mg ONETIME ONE Administration Metoprolol Tartrate 25 mg 11/27/16 00:49 Lopressor PO 11/27/16 00:50 ONETIME ONE Morphine Sulfate 2 mg 11/26/16 21:46 11/26/16 22:17 Morphine IVPUSH 11/26/16 21:47 2 mg ONETIME ONE Administration Morphine Sulfate 2 mg 11/26/16 22:44 11/26/16 23:01 Morphine IVPUSH 11/26/16 22:45 2 mg ONETIME ONE Administration Ondansetron HCl 4 mg 11/26/16 21:47 11/26/16 22:15 Zofran IV 11/26/16 21:48 4 mg ONETIME ONE Administration Oxycodone/Acetaminophen 1 tab 11/26/16 23:49 11/26/16 23:53 Percocet 325-5 Mg PO 11/26/16 23:50 1 tab ONETIME ONE Administration - Re-Assessments/Exams Free Text/Narrative Re-Assessment/Exam: Hypotensive on admission to ED. Initially responsive to fluid bolus, Minimal pain relief with Morphine or oxycodone per patient report, continues to rate pain 7-8/10. Describes pain as sharp. HR improved with cardizem, rate decreased to 90's briefly, periodic elevation 110's. Blood pressure variable. 80's-120's systolic, TC consult with Dr. Alves. Agreeable to admit for observation for further evaluation and management. Departure - Departure Time of Disposition: 01:10 Disposition: Admitted As Inpatient 64 Condition: Undetermined Clinical Impression: Atrial fibrillation with rapid ventricular response Chest pain Qualifiers: Chest pain type: unspecified Qualified Code(s): R07.9 - Chest pain, unspecified Referrals: PCP,Unobtain [Primary Care Provider] - Forms: ED Department Discharge - My Orders Last 24 Hours: My Active Orders 11/26/16 21:39 EKG 12 Lead [EKG Documentation Completion] [RC] URGENT 11/26/16 21:45 Sodium Chloride 0.9% [Normal Saline] 1,000 ml IV ASDIRECTED - Assessment/Plan Last 24 Hours: My Active Orders 11/26/16 21:39 EKG 12 Lead [EKG Documentation Completion] [RC] URGENT 11/26/16 21:45 Sodium Chloride 0.9% [Normal Saline] 1,000 ml IV ASDIRECTED
[2016-11-27] MEDS ORDERED: Metoprolol Tartrate 25 MG Tab PO ONE (00:49)
[2016-11-27] MEDS ORDERED: Ondansetron 4 MG/2 ML SDV IVPUSH PRN (00:53)
[2016-11-27] MEDS ORDERED: Non-Formulary Medication 1 Each (Acetaminophen [Tylenol Arthritis Pain] 650 MG) PO PRN (01:00)
[2016-11-27] MEDS ORDERED: Magnesium Sulfate/D5W 2 GM in Premix Bag 1 BAG IV ONE (01:49)
[2016-11-27] MEDS ORDERED: oxyCODONE 5 MG Tab PO PRN (01:50)
[2016-11-27] MEDS ORDERED: Sodium Chloride 0.9% 1,000 ML IV SCH (02:00)
[2016-11-27] MEDS ORDERED: LORazepam 0.5 MG Tab PO PRN (04:45)
[2016-11-27] MEDS ORDERED: oxyCODONE 5 MG Tab PO ONE (04:46)
[2016-11-27] MEDS ORDERED: Metoprolol Tartrate 50 MG Tab PO SCH (08:15)
[2016-11-27 08:56] VITALS: BP 104/51
[2016-11-27] MEDS ORDERED: CRANBERRY PO SCH (09:00)
--- NOTE | 2016-11-27 12:41 | EKG ---
11/19/2016 - JUAN A PRUETT - EKG shows atrial fibrillation with rapid ventricular response. Heart rate 126 per minute. There is borderline prolonged QT interval. [facility] /[id number]
--- NOTE | 2016-11-27 17:00 | HP ---
CHIEF COMPLAINT: Chest pain. HISTORY OF PRESENT ILLNESS: Mr. Ki Long is a male with multiple medical problems. He is known to have paroxysmal atrial fibrillation, hypertension, dyslipidemia, and gastroesophageal reflux disease. The patient recently was admitted in [place] because of AFib with RVR. He is scheduled to have a pacemaker placement. However, at home, he began to experience chest pain located at the retrosternal area. Described as pressure-like in nature. Intensity worsened with time. He was having associated generalized body malaise and shortness of breath. He also was found to have associated palpitation. No fever, chills, or rigors. He states that he has been compliant with all his medications. He took nitroglycerin twice prior to coming to the emergency room. On arrival, the patient was noted to be hypotensive, was given intravenous fluids. Blood pressure did improve but later dropped again down into the 90s. The patient was referred for admission. REVIEW OF SYSTEMS: A 10-point review of systems performed including constitutional, cardiac, respiratory, gastrointestinal, genitourinary, neurologic, and psychiatric. No other pertinent findings. FAMILY HISTORY: Reviewed and considered noncontributory. SOCIAL HISTORY: He does not smoke. History of smoking but quit in 1985. He does use alcohol sometimes socially. CURRENT MEDICATIONS: Reviewed. The patient is on metoprolol, also on methimazole. Chronic anticoagulation with warfarin, multivitamin, omeprazole, and gabapentin. PAST MEDICAL HISTORY: GERD, atrial fibrillation, coronary artery disease, dyslipidemia, and hypertension. OBJECTIVE: General: The patient is alert and oriented to place, time, and person. Head: Atraumatic and normocephalic. Ears, Nose, and Throat: Unremarkable. Neck: Supple. Chest: Clear to auscultation. Cardiovascular System: Regular rate and rhythm. No S3, S4 Abdomen: Soft and nontender. Extremities: No pedal edema. No finger clubbing. Skin: No rash. Neurologic: Symmetric strength in all extremities. Psychiatric: Judgment and insight are good. Lymphatic: No cervical lymphadenopathy. Vital Signs: Reviewed. Pulse was 120 and blood pressure 90/40. LABORATORY DATA: Reviewed. White count 7.3, hemoglobin 12.2. INR 1.5. Potassium 3.5. Magnesium 1.5. Creatinine 1.5. ASSESSMENT AND PLAN: 1. Atrial fibrillation with rapid ventricular response. I think it is likely due to inadequate compliance. The patient is supposed to be on metoprolol 50 mg two times a day but has been taking 25 mg b.i.d. We will increase the dose of metoprolol back to 50 mg b.i.d. 2. Acute renal failure. Serum creatinine is mildly elevated up to 1.5. This is likely because of hypotension. I will give intravenous fluids. Encourage liberal fluid intake. 3. Chronic anticoagulation. INR is subtherapeutic at 1.5. Adjust Coumadin dose. The patient will have repeat PT and INR in 3 days. 4. Hypokalemia. Serum potassium is 3.5. We will go ahead and correct. 5. Hypomagnesemia. We will also go ahead and correct this with intravenous potassium and magnesium sulfate. [facility] /[id number] MTDD
--- NOTE | 2016-11-28 07:10 | DISCH ---
FINAL DIAGNOSES: 1. Atrial fibrillation with rapid ventricular response. 2. Chronic kidney disease. 3. Hypomagnesemia. 4. Hypokalemia. SUMMARY OF HOSPITAL COURSE: Mr. Ki Long is a 75-year-old male, who presented to emergency room with a complaint of chest pain and palpitation, and the patient was found to be in atrial fibrillation with rapid ventricular response. Once he had taken nitroglycerin, his blood pressure was somewhat on the low side. The patient was given intravenous fluids and that improved the blood pressure temporarily. He got admitted for atrial fibrillation with rapid ventricular response and mild hypotension. We adjusted his medications. He was supposed to be on metoprolol 50 mg b.i.d. but has been using only 25 mg b.i.d. The patient was feeling better this morning. He received lorazepam that did help. His pain is gone. Troponin is negative. He will be discharged home. He has appointment to follow up with Cardiology on the of this month. PHYSICAL EXAMINATION: General: At discharge, the patient is alert, oriented to place, time, and person. Head: Atraumatic and normocephalic. Ear, Nose, and Throat: Unremarkable. Neck: Supple. Chest: Clear to auscultation. CVS: Irregular rate and rhythm. Abdomen: Soft, nontender. Extremities: No pedal edema. No finger clubbing. Skin: No rash. [facility] /[id number]
== END 2016-11-27 12:23 | disposition home or self-care (01) ==
LOC: DL.ED 21:28 → DL.MS 11-27 00:53 → UNDOADMOB 11-27 01:00
PROVIDERS: ADMIT Hospitalist; ATTEND Hospitalist
DX: I48.91 Unspecified atrial fibrillation (principal); N18.9 Chronic kidney disease, unspecified; I12.9 Hypertensive chronic kidney disease with stage 1 through stage 4 chronic kidney disease, or unspecified chronic kidney disease; E83.42 Hypomagnesemia; E87.6 Hypokalemia; K21.9 Gastro-esophageal reflux disease without esophagitis; I25.10 Atherosclerotic heart disease of native coronary artery without angina pectoris; E78.5 Hyperlipidemia, unspecified; Z87.891 Personal history of nicotine dependence; Z79.01 Long term (current) use of anticoagulants; Z79.899 Other long term (current) drug therapy; Z88.8 Allergy status to other drugs, medicaments and biological substances
CPT/HCPCS: 36415; 71010; 80053; 82553; 83735; 83880; 84484; 85025; 85610; 93005; 93010; 96361; 96365; 96366; 96375; 96376; 99285; A9270; G0378; J2270; J2405; J3475; J3490; J7030; 96374; 99236

== ENCOUNTER 2017-05-29 09:43 | Emergency (ER) | payer MEDICARE, BC ==
[2017-05-29] MEDS ORDERED: Sodium Chloride 0.9% 10 ML Syringe FLUSH PRN (10:06)
--- NOTE | 2017-05-29 10:09 | EDM.PDOC ---
ED HPI GENERAL MEDICAL PROBLEM - General Chief Complaint: Cardiovascular Problem Stated Complaint: [id number] SOMETHING WRONG WITH PACE MAKER Time Seen by Provider: 05/29/17 10:09 Source of Information: Reports: Patient, Family, RN, RN Notes Reviewed History Limitations: Reports: No Limitations - History of Present Illness INITIAL COMMENTS - FREE TEXT/NARRATIVE: Pt presents to Er with c/o chest pain beginning yesterday. Patient states he felt as though he had the flu yesterday. He states he was checking his blood pressure yesterday and his BP was quite low (80's/50-60's). During the night he states he began having "fierce chest pain". This morning he talked to Thomas about his pacemaker. They emailed results of pacemaker check. Patient had reportedly been in AFib since 2340 last night. He states his chest pain is a 10/ 10 at this time, is under the left breast and radiates into the left shoulder blade and into the jaw. Onset: Gradual - Related Data Allergies Allergy/AdvReac Type Severity Reaction Status Date / Time naproxen Allergy Hives Verified 11/27/16 03:06 propoxyphene Allergy Hives Verified 11/27/16 03:06 Home Meds: Home Meds EPINEPHrine [Epipen 2-Anthony] 0.3 mg IM ASDIRECTED PRN 01/10/14 [History] Fish Oil/[place]-3 Fatty Acids [Fish Oil 1,000 MG] 1 cap PO BID 01/10/14 [History] Multivitamin [Multi-Vitamin Daily] 1 tab PO DAILY 01/10/14 [History] Omeprazole [Prilosec] 20 mg PO DAILY 01/10/14 [History] Rosuvastatin [Crestor] 40 mg PO DAILY 01/10/14 [History] Sildenafil [Viagra] 100 mg PO ASDIRECTED PRN 01/10/14 [History] Acetaminophen [Tylenol Arthritis Pain] 650 mg PO Q6H PRN 01/16/14 [History] Fluocinolone Acetonide [Synalar 0.025% Cream] 15 gm .XX DAILY PRN 01/16/14 [ History] [id number] 149-Hyal [Glucosamine Chondroitin Complx] 1 each PO BID [History] Warfarin [Coumadin] 5 mg PO DAILY 07/14/16 [History] oxyCODONE HCl/Acetaminophen [oxyCODONE-Acetaminophen 5-325] 1 tab PO BID PRN 05/27 [History] Aspirin 81 mg PO DAILY tab.chew 07/15/16 [Rx] LORazepam [Ativan] 1 mg PO BID #30 tablet 07/15/16 [Rx] Methimazole 5 mg PO DAILY 07/16/16 [History] Nitroglycerin [Nitrostat] 0.4 mg SL ASDIRECTED PRN 07/17/16 [History] Cranberry 1 tab PO BID 09/03/16 [History] Lycopene 25 mg PO DAILY 09/03/16 [History] Gabapentin [Neurontin] 600 mg PO BID 11/19/16 [History] Metoprolol Tartrate [Lopressor] 50 mg PO Q12HR #90 tablet 11/27/16 [Rx] Past Medical History HEENT History: Reports: Impaired Vision Cardiovascular History: Reports: Afib, Angina, CAD, High Cholesterol, Hypertension, Stents Respiratory History: Reports: None Gastrointestinal History: Reports: GERD Genitourinary History: Reports: None Musculoskeletal History: Reports: Other (See Below) Other Musculoskeletal History: hx rib fx Neurological History: Reports: None Psychiatric History: Reports: None Endocrine/Metabolic History: Reports: Hyperthyroidism Hematologic History: Reports: None Immunologic History: Reports: None Oncologic (Cancer) History: Reports: None Dermatologic History: Reports: None - Infectious Disease History Infectious Disease History: Reports: None - Past Surgical History Head Surgeries/Procedures: Reports: None Social & Family History - Family History Family Medical History: Noncontributory - Tobacco Use Smoking Status *Q: Never Smoker Used Tobacco, but Quit: No Month/Year Tobacco Last Used: 1985 Second Hand Smoke Exposure: No - Caffeine Use Caffeine Use: Reports: None - Alcohol Use Days Per Week of Alcohol Use: 7 Number of Drinks Per Day: 2 Total Drinks Per Week: 14 - Recreational Drug Use Recreational Drug Use: No ED ROS GENERAL - Review of Systems Review Of Systems: ROS reveals no pertinent complaints other than HPI. ED EXAM, GENERAL - Physical Exam Exam: See Below Exam Limited By: No Limitations General Appearance: Alert, WD/WN, Moderate Distress Eye Exam: Bilateral Eye: EOMI, Normal Inspection Ears: Normal External Exam, Hearing Grossly Normal Nose: Normal Inspection Throat/Mouth: Normal Inspection, Normal Voice, No Airway Compromise Head: Atraumatic, Normocephalic Neck: Normal Inspection, Supple, Non-Tender, Full Range of Motion Respiratory/Chest: No Respiratory Distress, Chest Non-Tender, Decreased Breath Sounds Cardiovascular: Normal Peripheral Pulses, Regular Rate, Rhythm, Other ( ventricular paced 70's) Peripheral Pulses: 2+: Radial (L), Radial (R) GI/Abdominal: Normal Bowel Sounds, Soft, Non-Tender, No Organomegaly, No Distention (Male) Exam: Deferred Rectal (Males) Exam: Deferred Back Exam: Normal Inspection, Decreased Range of Motion Extremities: Normal Inspection, Normal Range of Motion, Non-Tender, No Pedal Edema, Normal Capillary Refill Neurological: Alert, Oriented, CN II-XII Intact, Normal Cognition, Normal Gait, Normal Reflexes, No Motor/Sensory Deficits Psychiatric: Normal Affect, Normal Mood Skin Exam: Warm, Dry, Intact, Normal Color, No Rash Lymphatic: No Adenopathy EKG INTERPRETATION EKG Date: 05/29/17 Rhythm: Other (ventricular paced) Course - Vital Signs Last Recorded V/S: Last Vital Signs Temp 97.2 F 05/29/17 10:00 Pulse 82 05/29/17 10:00 Resp 16 05/29/17 10:00 BP 121/68 05/29/17 10:00 Pulse Ox 96 05/29/17 10:00 - Orders/Labs/Meds Labs: Laboratory Tests 05/29/17 05/29/17 05/29/17 Range/Units 10:10 10:10 10:10 WBC 7.7 (5.0-10.0) 10^3/uL RBC 4.36 L (4.6-6.2) 10^6/uL Hgb 12.9 L (14.0-18.0) g/dL Hct 39.5 L (40.0-54.0) % MCV 90.6 (80-100) fL MCH 29.6 (27.0-34.0) pg MCHC 32.7 L (33.0-35.0) g/dL Plt Count 135 L (150-450) 10^3/uL Neut % (Auto) 57.9 (42.2-75.2) % Lymph % (Auto) 29.4 (20.5-50.1) % [place] % (Auto) 9.8 H (2-8) % Eos % (Auto) 2.6 (1.0-3.0) % Baso % (Auto) 0.3 (0.0-1.0) % PT 20.5 H D (9.0-12.0) SEC INR 2.0 H (0.9-1.2) Sodium 138 (135-145) mmol/L Potassium 4.0 (3.6-5.0) mmol/L Chloride 103 (101-111) mmol/L Carbon Dioxide 28.0 (21.0-31.0) mmol/L Anion Gap 11.0 BUN 18 (7-18) mg/dL Creatinine 1.5 H (0.6-1.3) mg/dL Est Cr Clr Drug Dosing TNP Estimated GFR (MDRD) 45 BUN/Creatinine Ratio 12.00 Glucose 113 H (74-105) mg/dL Calcium 8.9 (8.4-10.2) mg/dl Total Bilirubin 0.7 (0.2-1.0) mg/dL AST 28 (10-42) IU/L ALT 12 (10-60) IU/L Alkaline Phosphatase 50 (42-121) IU/L Troponin I < 0.02 (0.00-0.02) ng/ml B-Natriuretic Peptide 97 (0-100) pg/ml Total Protein 6.7 (6.7-8.2) g/dl Albumin 3.9 (3.2-5.5) g/dl Globulin 2.8 Albumin/Globulin Ratio 1.39 Meds: Medications Discontinued Medications Generic Name Dose Route Start Last Admin Trade Name Freq PRN Reason Stop Dose Admin Hydromorphone HCl 1 mg 05/29/17 10:21 05/29/17 10:28 Dilaudid IVPUSH 05/29/17 10:22 1 mg ONETIME ONE Administration Hydromorphone HCl 1 mg 05/29/17 12:26 05/29/17 12:48 Dilaudid IVPUSH 05/29/17 12:27 1 mg ONETIME ONE Administration Ondansetron HCl 4 mg 05/29/17 10:21 05/29/17 10:28 Zofran IV 05/29/17 10:22 4 mg ONETIME ONE Administration Sodium Chloride 10 ml 05/29/17 10:06 05/29/17 10:19 Saline Flush FLUSH 10 ml ASDIRECTED PRN Administration Keep Vein Open - Radiology Interpretation Free Text/Narrative:: chest xray: New increase density and prominence of the AP window with left perihilar infiltrate/atelectasis. Concerning for AP window mass/adenopathy. Recommend CT chest. Thank you for allowing us to participate in the care of your patient. Dictated and Authenticated by: Ángela Winkler MD 05/29/2017 12:11 PM Central Time ([place] & [place]) See Rad report Departure - Departure Time of Disposition: 13:01 Disposition: DC/Tfer to Acute Hospital 02 Reason for Transfer *Q: Other Condition: Fair Clinical Impression: Acute coronary syndrome Chest pain Qualifiers: Chest pain type: unspecified Qualified Code(s): R07.9 - Chest pain, unspecified Forms: ED Department Discharge, Interfacility Transfer TIM
[2017-05-29 10:19] VITALS: BP 121/68
[2017-05-29] MEDS ORDERED: Ondansetron 4 MG/2 ML SDV IV ONE (10:21)
[2017-05-29] MEDS ORDERED: HYDROmorphone 0.5 MG/0.5 ML Syringe IVPUSH ONE ×2 (10:21→12:26)
[2017-05-29 10:45] LABS: CHLORIDE,CL 103 mmol/L (101-111); SODIUM,NA 138 mmol/L (135-145)
--- NOTE | 2017-06-02 10:15 | EKG ---
05/29/2017- JUAN A PRUETT - EKG, per my reading, shows ventricular-paced rhythm. [facility] /[id number]
== END 2017-05-29 13:02 ==
LOC: DL.ED 09:43
DX: I24.9 Acute ischemic heart disease, unspecified (principal); I10 Essential (primary) hypertension; E78.00 Pure hypercholesterolemia, unspecified; I48.91 Unspecified atrial fibrillation; I25.10 Atherosclerotic heart disease of native coronary artery without angina pectoris; E03.9 Hypothyroidism, unspecified; Z95.0 Presence of cardiac pacemaker; Z79.82 Long term (current) use of aspirin; Z79.899 Other long term (current) drug therapy; Z88.8 Allergy status to other drugs, medicaments and biological substances; Z79.01 Long term (current) use of anticoagulants
CPT/HCPCS: 36415; 71046; 80053; 83880; 84484; 85025; 85610; 93005; 93010; 96374; 96375; 96376; 99285; J1170; J2405; J7050; 99284

== ENCOUNTER 2017-06-21 19:34 | Emergency (ER) | payer MEDICARE, BC ==
[2017-06-21] MEDS ORDERED: Aspirin 81 MG Tab.Chew PO ONE (19:59)
[2017-06-21 20:09] LABS: CHLORIDE,CL 96 mmol/L (101-111); SODIUM,NA 135 mmol/L (135-145)
[2017-06-21] MEDS ORDERED: Morphine 2 MG/ML Syringe IVPUSH ONE ×3 (20:16→21:37)
[2017-06-21] MEDS ORDERED: Sodium Chloride 0.9% 1,000 ML IV ONE (20:16)
--- NOTE | 2017-06-21 20:25 | EDM.PDOC ---
ED HPI GENERAL MEDICAL PROBLEM - General Chief Complaint: Chest Pain Stated Complaint: SEVERE CHEST PAINS Time Seen by Provider: 06/21/17 20:20 Source of Information: Reports: Patient History Limitations: Reports: No Limitations - History of Present Illness INITIAL COMMENTS - FREE TEXT/NARRATIVE: This 76 yo male patient reports to the ED with a 1 hour history of chest pain. The patient reports his pain is a 8/10 and describes his pain as "sharp" with some radiation to his left chest and shoulder. The patient reports he is scheduled for an angiogram next Friday due to some "blood pooling in his left ventricle" discovered on echo. The patient is scheduled to seen Dr. Schwab. The patient reports he has been told not to take any nitro due to it "dropping his pulse to 40 last time he took it". Onset: Today Onset Date: 06/21/17 Onset Time: 19:00 Duration: Constant Location: Reports: Chest Quality: Reports: Ache, Sharp Severity: Severe Improves with: Reports: None Worsens with: Reports: None Context: Reports: Other Associated Symptoms: Reports: Chest Pain Left Chest Pain Score (Numeric/FACES): 8 - Related Data Allergies Allergy/AdvReac Type Severity Reaction Status Date / Time bee venom protein (honey bee) Allergy Anaphylactic Verified 06/21/17 19:41 Shock naproxen Allergy Hives Verified 06/21/17 19:41 nut - unspecified Allergy Hives Verified 06/21/17 19:41 propoxyphene Allergy Hives Verified 06/21/17 19:41 Home Meds: Home Meds EPINEPHrine [Epipen 2-Anthony] 0.3 mg IM ASDIRECTED PRN 01/10/14 [History] Fish Oil/[place]-3 Fatty Acids [Fish Oil 1,000 MG] 1 cap PO DAILY 01/10/14 [ History] Multivitamin [Multi-Vitamin Daily] 1 tab PO DAILY 01/10/14 [History] Omeprazole [Prilosec] 20 mg PO BEDTIME PRN 01/10/14 [History] Rosuvastatin [Crestor] 40 mg PO DAILY 01/10/14 [History] Sildenafil [Viagra] 100 mg PO ASDIRECTED PRN 01/10/14 [History] Fluocinolone Acetonide [Synalar 0.025% Cream] 15 gm .XX ASDIRECTED PRN 01/16/14 [History] Fzchyiog-Rgcfoto-Ozvp 149-Hyal [Glucosamine Chondroitin Complx] 1 each PO DAILY 01/16/14 [History] Warfarin [Coumadin] 5 mg PO ASDIRECTED 07/14/16 [History] oxyCODONE HCl/Acetaminophen [oxyCODONE-Acetaminophen 5-325] 1 tab PO BID PRN 05/27 [History] Aspirin 81 mg PO DAILY tab.chew 07/15/16 [Rx] Methimazole 5 mg PO DAILY 07/16/16 [History] Nitroglycerin [Nitrostat] 0.4 mg SL ASDIRECTED PRN 07/17/16 [History] Cranberry 4,200 mg PO DAILY 09/03/16 [History] Lycopene 25 mg PO DAILY 09/03/16 [History] Gabapentin [Neurontin] 600 mg PO TID 11/19/16 [History] Acetaminophen 1,000 mg PO Q6HR PRN 06/09/17 [History] Fluticasone/Salmeterol [Advair HFA 45-21 MCG] 2 puff IH BID 06/09/17 [History] Magnesium Oxide 250 mg PO DAILY 06/09/17 [History] Metolazone [Zaroxolyn] 2.5 mg PO DAILY 06/09/17 [History] Metoprolol Tartrate 100 mg PO DAILY 06/09/17 [History] Pantoprazole Sodium 40 mg PO DAILY 06/09/17 [History] LORazepam [Ativan] 1 mg PO BID PRN 06/21/17 [History] Past Medical History HEENT History: Reports: Impaired Vision Cardiovascular History: Reports: Afib, Angina, CAD, High Cholesterol, Hypertension, Pacemaker, Stents Respiratory History: Reports: None Gastrointestinal History: Reports: GERD Genitourinary History: Reports: None Musculoskeletal History: Reports: Other (See Below) Other Musculoskeletal History: hx rib fx Neurological History: Reports: None Psychiatric History: Reports: None Endocrine/Metabolic History: Reports: Hyperthyroidism Hematologic History: Reports: None Immunologic History: Reports: None Oncologic (Cancer) History: Reports: None Dermatologic History: Reports: None - Infectious Disease History Infectious Disease History: Reports: Chicken Pox, Measles, Mumps - Past Surgical History Head Surgeries/Procedures: Reports: None Social & Family History - Family History Family Medical History: Noncontributory Cardiac: Reports: CAD - Tobacco Use Smoking Status *Q: Former Smoker Used Tobacco, but Quit: Yes Month/Year Tobacco Last Used: feb 1985 Second Hand Smoke Exposure: No - Caffeine Use Caffeine Use: Reports: Coffee - Recreational Drug Use Recreational Drug Use: No ED ROS GENERAL - Review of Systems Review Of Systems: ROS reveals no pertinent complaints other than HPI. ED EXAM, GENERAL - Physical Exam Exam: See Below Exam Limited By: No Limitations General Appearance: Alert, WD/WN, No Apparent Distress Eye Exam: Bilateral Eye: EOMI, Normal Inspection, PERRL Ears: Normal External Exam, Normal Canal, Hearing Grossly Normal, Normal TMs Nose: Normal Inspection, Normal Mucosa, No Blood Throat/Mouth: Normal Inspection, Normal Lips, Normal Teeth, Normal Gums, Normal Oropharynx, Normal Voice, No Airway Compromise Head: Atraumatic, Normocephalic Neck: Normal Inspection Respiratory/Chest: No Respiratory Distress, Lungs Clear, Normal Breath Sounds, No Accessory Muscle Use, Chest Non-Tender Cardiovascular: Normal Peripheral Pulses, Regular Rate, Rhythm, Other (mild lower extremity edema) GI/Abdominal: Normal Bowel Sounds, Soft, Non-Tender, No Organomegaly, No Distention, No Abnormal Bruit, No Mass (Male) Exam: Deferred Rectal (Males) Exam: Deferred Back Exam: Normal Inspection, Full Range of Motion, NT Extremities: Normal Inspection, Normal Range of Motion, Non-Tender, Normal Capillary Refill, No Pedal Edema Neurological: Alert, Oriented, CN II-XII Intact, Normal Cognition, Normal Gait, Normal Reflexes, No Motor/Sensory Deficits Psychiatric: Normal Affect, Normal Mood Skin Exam: Warm, Dry, Intact, Normal Color, No Rash Lymphatic: No Adenopathy Course - Vital Signs Last Recorded V/S: Last Vital Signs Temp 36.7 C 06/21/17 19:42 Pulse 70 06/21/17 21:07 Resp 16 06/21/17 21:07 BP 118/67 06/21/17 21:07 Pulse Ox 95 06/21/17 21:07 - Orders/Labs/Meds Orders: Active Orders 24 hr Category Date Time Status EKG Documentation Completion [RC] URGENT Care 06/21/17 19:39 Active Potassium Chloride [KCl 10 MEQ in Water 100 ML] 10 meq Med 06/21/17 21:16 Ordered Premix Bag 1 bag IV ONETIME Sodium Chloride 0.9% [Normal Saline] 1,000 ml Med 06/21/17 20:16 Active IV .BOLUS Medication Orders Sodium Chloride (Normal Saline) 1,000 mls @ 125 mls/hr IV .BOLUS ONE Stop: 06/22/17 04:15 Last Admin: 06/21/17 20:35 Dose: 125 mls/hr Potassium Chloride 10 meq/ (Premix) 100 mls @ 100 mls/hr IV ONETIME ONE Stop: 06/21/17 22:15 Last Admin: 06/21/17 21:23 Dose: 100 mls/hr Labs: Laboratory Tests 06/21/17 06/21/17 06/21/17 Range/Units 19:41 19:41 19:41 WBC 9.4 (5.0-10.0) 10^3/uL RBC 4.32 L (4.6-6.2) 10^6/uL Hgb 12.6 L (14.0-18.0) g/dL Hct 38.2 L (40.0-54.0) % MCV 88.4 (80-100) fL MCH 29.2 (27.0-34.0) pg MCHC 33.0 (33.0-35.0) g/dL Plt Count 125 L (150-450) 10^3/uL Neut % (Auto) 55.2 (42.2-75.2) % Lymph % (Auto) 37.1 (20.5-50.1) % [place] % (Auto) 5.9 (2-8) % Eos % (Auto) 1.6 (1.0-3.0) % Baso % (Auto) 0.2 (0.0-1.0) % PT (9.0-12.0) SEC INR (0.9-1.2) APTT 31.0 (22.0-34.0) SEC Sodium 135 (135-145) mmol/L Potassium 2.9 L (3.6-5.0) mmol/L Chloride 96 L (101-111) mmol/L Carbon Dioxide 27.0 (21.0-31.0) mmol/L Anion Gap 14.9 BUN 26 H (7-18) mg/dL Creatinine 1.5 H (0.6-1.3) mg/dL Est Cr Clr Drug Dosing 53.79 mL/min Estimated GFR (MDRD) 45 BUN/Creatinine Ratio 17.33 Glucose 154 H (74-105) mg/dL Calcium 9.2 (8.4-10.2) mg/dl Total Bilirubin 0.5 (0.2-1.0) mg/dL AST 31 (10-42) IU/L ALT 11 (10-60) IU/L Alkaline Phosphatase 66 (42-121) IU/L Troponin I < 0.02 (0.00-0.02) ng/ml Total Protein 7.2 (6.7-8.2) g/dl Albumin 4.1 (3.2-5.5) g/dl Globulin 3.1 Albumin/Globulin Ratio 1.32 /01/27 Range/Units 19:41 WBC (5.0-10.0) 10^3/uL RBC (4.6-6.2) 10^6/uL Hgb (14.0-18.0) g/dL Hct (40.0-54.0) % MCV (80-100) fL MCH (27.0-34.0) pg MCHC (33.0-35.0) g/dL Plt Count (150-450) 10^3/uL Neut % (Auto) (42.2-75.2) % Lymph % (Auto) (20.5-50.1) % [place] % (Auto) (2-8) % Eos % (Auto) (1.0-3.0) % Baso % (Auto) (0.0-1.0) % PT 22.1 H (9.0-12.0) SEC INR 2.3 H (0.9-1.2) APTT (22.0-34.0) SEC Sodium (135-145) mmol/L Potassium (3.6-5.0) mmol/L Chloride (101-111) mmol/L Carbon Dioxide (21.0-31.0) mmol/L Anion Gap BUN (7-18) mg/dL Creatinine (0.6-1.3) mg/dL Est Cr Clr Drug Dosing mL/min Estimated GFR (MDRD) BUN/Creatinine Ratio Glucose (74-105) mg/dL Calcium (8.4-10.2) mg/dl Total Bilirubin (0.2-1.0) mg/dL AST (10-42) IU/L ALT (10-60) IU/L Alkaline Phosphatase (42-121) IU/L Troponin I (0.00-0.02) ng/ml Total Protein (6.7-8.2) g/dl Albumin (3.2-5.5) g/dl Globulin Albumin/Globulin Ratio Meds: Medications Generic Name Dose Route Start Last Admin Trade Name Freq PRN Reason Stop Dose Admin Sodium Chloride 1,000 mls @ 125 mls/hr 06/21/17 20:16 06/21/17 20:35 Normal Saline IV 06/22/17 04:15 125 mls/hr .BOLUS ONE Administration Potassium Chloride 10 meq/ 100 mls @ 100 mls/hr 06/21/17 21:16 06/21/17 21:23 Premix IV 06/21/17 22:15 100 mls/hr ONETIME ONE Administration Discontinued Medications Generic Name Dose Route Start Last Admin Trade Name Freq PRN Reason Stop Dose Admin Aspirin 324 mg 06/21/17 19:59 06/21/17 20:14 Aspirin PO 06/21/17 20:00 324 mg ONETIME ONE Administration Morphine Sulfate 2 mg 06/21/17 20:16 06/21/17 20:37 Morphine IVPUSH 06/21/17 20:17 2 mg ONETIME ONE Administration Morphine Sulfate 2 mg 06/21/17 20:53 06/21/17 21:04 Morphine IVPUSH 06/21/17 20:54 2 mg ONETIME ONE Administration Departure - Departure Time of Disposition: 21:33 Disposition: Home, Self-Care 01 Condition: Poor Clinical Impression: Unstable angina Forms: Interfacility Transfer EMTALA Care Plan Goals: Discussed the history, EKG, examination and x-ray results with Dr. Mejia ( hospitalist with [facility] in [place]). Dr. Mejia accepted the patient for continued evaluation and management. The patient will be transported by [facility]. - My Orders Last 24 Hours: My Active Orders 06/21/17 19:39 EKG Documentation Completion [RC] URGENT 06/21/17 20:16 Sodium Chloride 0.9% [Normal Saline] 1,000 ml IV .BOLUS 06/21/17 21:16 Potassium Chloride [KCl 10 MEQ in Water 100 ML] 10 meq Premix Bag 1 bag IV ONETIME - Assessment/Plan Last 24 Hours: My Active Orders 06/21/17 19:39 EKG Documentation Completion [RC] URGENT 06/21/17 20:16 Sodium Chloride 0.9% [Normal Saline] 1,000 ml IV .BOLUS 06/21/17 21:16 Potassium Chloride [KCl 10 MEQ in Water 100 ML] 10 meq Premix Bag 1 bag IV ONETIME
[2017-06-21] MEDS ORDERED: Potassium Chloride 10 MEQ in Premix Bag 1 BAG IV ONE (21:16)
[2017-06-21 23:06] VITALS: BP 118/56
--- NOTE | 2017-06-24 13:06 | EKG ---
06/21/2017 - JUAN A PRUETT - FINDINGS: A 12-lead EKG shows AV dual paced rhythm. No further interpretation could be done at this time secondary to paced complex. [facility] /[id number]
== END 2017-06-21 23:00 ==
LOC: DL.ED 19:34
DX: I20.0 Unstable angina (principal); E78.00 Pure hypercholesterolemia, unspecified; I10 Essential (primary) hypertension; K21.9 Gastro-esophageal reflux disease without esophagitis; E05.90 Thyrotoxicosis, unspecified without thyrotoxic crisis or storm; Z91.030 Bee allergy status; Z88.6 Allergy status to analgesic agent; Z88.8 Allergy status to other drugs, medicaments and biological substances; Z91.018 Allergy to other foods; Z79.899 Other long term (current) drug therapy; Z79.82 Long term (current) use of aspirin; Z87.891 Personal history of nicotine dependence
CPT/HCPCS: 36415; 71045; 80053; 84484; 85025; 85610; 85730; 93005; 96361; 96365; 96375; 96376; 99285; A9270; J2270; J3480; J7030; 93010

== ENCOUNTER 2017-07-06 09:46 | Emergency (ER) | payer OTHER, MEDICARE, BC ==
[2017-07-06] MEDS ORDERED: methylPREDNISolone Sodium Succinate 125 MG/2 ML SDV IM ONE (12:07)
[2017-07-06 13:14] VITALS: BP 101/56
--- NOTE | 2017-07-07 07:51 | EDM.PDOC ---
Scribed by Celia Kim 07/06/17 1251 for Jovita Mar NP ED HPI GENERAL MEDICAL PROBLEM - General Chief Complaint: Back Pain or Injury Stated Complaint: SEVERE LOWER BACK PAIN [id number] Time Seen by Provider: 07/06/17 12:00 Source of Information: Reports: Patient, RN, RN Notes Reviewed History Limitations: Reports: No Limitations - History of Present Illness INITIAL COMMENTS - FREE TEXT/NARRATIVE: Patient presents to the ER with complaint of low back pain without relief from pain meds. Patient states Home Health sees him for strengthening. On Friday he used 6 cans of peas on lower extremities. He feels this was too much. Began with burning pain. States he has been taking 2 oxycodone every 3 hours since Friday last at 0600 today. States he has been dizzy. Denies numbness and tingling. Onset: Gradual Duration: Getting Worse Location: Reports: Back Quality: Reports: Ache Severity: Severe Improves with: Reports: None Worsens with: Reports: None Associated Symptoms: Reports: No Other Symptoms Bilateral Lower Back Pain Score (Numeric/FACES): 10 - Related Data Allergies Allergy/AdvReac Type Severity Reaction Status Date / Time bee venom protein (honey bee) Allergy Anaphylactic Verified 06/21/17 19:41 Shock naproxen Allergy Hives Verified 06/21/17 19:41 nut - unspecified Allergy Hives Verified 06/21/17 19:41 propoxyphene Allergy Hives Verified 06/21/17 19:41 Home Meds: Home Meds EPINEPHrine [Epipen 2-Anthony] 0.3 mg IM ASDIRECTED PRN 01/10/14 [History] Fish Oil/[place]-3 Fatty Acids [Fish Oil 1,000 MG] 1 cap PO DAILY 01/10/14 [ History] Multivitamin [Multi-Vitamin Daily] 1 tab PO DAILY 01/10/14 [History] Omeprazole [Prilosec] 20 mg PO BEDTIME PRN 01/10/14 [History] Rosuvastatin [Crestor] 40 mg PO DAILY 01/10/14 [History] Sildenafil [Viagra] 100 mg PO ASDIRECTED PRN 01/10/14 [History] Fluocinolone Acetonide [Synalar 0.025% Cream] 15 gm .XX ASDIRECTED PRN 01/16/14 [History] [id number] 149-Hyal [Glucosamine Chondroitin Complx] 1 each PO DAILY 01/16/14 [History] Warfarin [Coumadin] 5 mg PO ASDIRECTED 07/14/16 [History] oxyCODONE HCl/Acetaminophen [oxyCODONE-Acetaminophen 5-325] 1 tab PO BID PRN 05/27 [History] Aspirin 81 mg PO DAILY tab.chew 07/15/16 [Rx] Methimazole 5 mg PO DAILY 07/16/16 [History] Nitroglycerin [Nitrostat] 0.4 mg SL ASDIRECTED PRN 07/17/16 [History] Cranberry 4,200 mg PO DAILY 09/03/16 [History] Gabapentin [Neurontin] 600 mg PO TID 11/19/16 [History] Acetaminophen 1,000 mg PO Q6HR PRN 06/09/17 [History] Fluticasone/Salmeterol [Advair HFA 45-21 MCG] 2 puff IH BID 06/09/17 [History] Magnesium Oxide 250 mg PO DAILY 06/09/17 [History] Metoprolol Tartrate 100 mg PO DAILY 06/09/17 [History] Pantoprazole Sodium 40 mg PO DAILY 06/09/17 [History] LORazepam [Ativan] 1 mg PO BID PRN 06/21/17 [History] Docusate Sodium [Colace] 100 mg PO DAILY 07/06/17 [History] Isosorbide Mononitrate [Imdur] 30 mg PO DAILY 07/06/17 [History] Past Medical History HEENT History: Reports: Impaired Vision Cardiovascular History: Reports: Afib, Angina, CAD, High Cholesterol, Hypertension, Pacemaker, Stents Respiratory History: Reports: None Gastrointestinal History: Reports: GERD Genitourinary History: Reports: None Musculoskeletal History: Reports: Other (See Below) Other Musculoskeletal History: hx rib fx, stenosis Neurological History: Reports: None Psychiatric History: Reports: None Endocrine/Metabolic History: Reports: Hyperthyroidism Hematologic History: Reports: None Immunologic History: Reports: None Oncologic (Cancer) History: Reports: None Dermatologic History: Reports: None - Infectious Disease History Infectious Disease History: Reports: Chicken Pox, Measles, Mumps - Past Surgical History Head Surgeries/Procedures: Reports: None Cardiovascular Surgical History: Reports: Coronary Artery Stent, Pacer GI Surgical History: Reports: Appendectomy Musculoskeletal Surgical History: Reports: Other (See Below) (stenosis) Social & Family History - Family History Family Medical History: Noncontributory Cardiac: Reports: CAD - Tobacco Use Smoking Status *Q: Never Smoker - Caffeine Use Caffeine Use: Reports: Coffee - Alcohol Use Days Per Week of Alcohol Use: 7 Number of Drinks Per Day: 2 Total Drinks Per Week: 14 - Recreational Drug Use Recreational Drug Use: No ED ROS GENERAL - Review of Systems Review Of Systems: ROS reveals no pertinent complaints other than HPI. ED EXAM,LOWER BACK PAIN/INJURY - Physical Exam Exam: See Below Exam Limited By: No Limitations General Appearance: Alert, WD/WN, No Apparent Distress Eye Exam: Bilateral Eye: Abnormal EOM, Normal Inspection Ears: Normal External Exam, Normal Canal, Hearing Grossly Normal, Normal TMs Nose: Normal Inspection, Normal Mucosa, No Blood Throat/Mouth: Other (voice raspy--patient states laryngitis) Head: Atraumatic, Normocephalic Neck: Normal Inspection, Supple, Non-Tender, Full Range of Motion Respiratory/Chest: No Respiratory Distress, Lungs Clear, Normal Breath Sounds, No Accessory Muscle Use, Chest Non-Tender Cardiovascular: Normal Peripheral Pulses, Regular Rate, Rhythm, No Edema, No Gallop, No JVD, No Murmur, No Rub GI/Abdominal: Normal Bowel Sounds, Soft, Non-Tender, No Organomegaly, No Distention, No Abnormal Bruit, No Mass (Male) Exam: Deferred Rectal (Males) Exam: Deferred Back Exam: Decreased Range of Motion Extremities: Other (decreased range of motion legs bilateral) Neurological: Other (anxious) Psychiatric: Anxious Skin Exam: Warm, Dry, Intact, Normal Color, No Rash Lymphatic: No Adenopathy Course - Vital Signs Last Recorded V/S: Last Vital Signs Temp 97.6 F 07/06/17 11:09 Pulse 70 07/06/17 12:55 Resp 16 07/06/17 12:55 BP 101/56 L 07/06/17 12:55 Pulse Ox 94 L 07/06/17 12:55 - Orders/Labs/Meds Meds: Medications Discontinued Medications Generic Name Dose Route Start Last Admin Trade Name Derickq PRN Reason Stop Dose Admin Methylprednisolone Sodium Succinate 125 mg 07/06/17 12:07 07/06/17 12:17 Solu-Medrol IM 07/06/17 12:08 125 mg ONETIME ONE Administration Orphenadrine Citrate 60 mg 07/06/17 12:15 07/06/17 12:16 Norflex IM 60 mg Q12H BRYAN Administration Departure - Departure Time of Disposition: 12:48 Disposition: Home, Self-Care 01 Condition: Fair Clinical Impression: Muscle strain Low back pain Qualifiers: Chronicity: acute Back pain laterality: midline Sciatica presence: without sciatica Qualified Code(s): M54.5 - Low back pain - Discharge Information Instructions: Back Injury Prevention, Zkna-kp-Qmuc, Constipation, Adult, Easy- to-Read, Muscle Strain, [id number], Back Exercises, Ngbz-zb-Wadu, Back Pain, Adult, Pajq-ma-Soky, Pain Medicine Instructions, Qxek-rv-Ryfh, Heat Therapy, Qvqm-qx-Vzoj Referrals: Maegan Enamorado [employer] [Primary Care Provider] - Forms: ED Department Discharge Additional Instructions: RX: Flexeril and Medrol Dose pack Begin Medrol Dose Pack tomorrow (07/07) Rest, heat, ice as tolerated Follow up with your primary care facility May use Miralax for constipation Drink plenty of water. I have read and agree with the documentation that has been completed regarding this visit. By signing this record, I attest that the documentation was completed in my physical presence and is an accurate record of the encounter.
== END 2017-07-06 13:00 | disposition home or self-care (01) ==
LOC: DL.ED 09:46
DX: S39.012A Strain of muscle, fascia and tendon of lower back, initial encounter (principal); I10 Essential (primary) hypertension; X50.9XXA Other and unspecified overexertion or strenuous movements or postures, initial encounter; Z91.030 Bee allergy status; Z91.018 Allergy to other foods; Z88.8 Allergy status to other drugs, medicaments and biological substances; Z79.899 Other long term (current) drug therapy; Z79.82 Long term (current) use of aspirin
CPT/HCPCS: 96372; 99282; J2360; J2930; 99283

== ENCOUNTER 2017-07-12 10:46 | Emergency (ER) | payer OTHER, MEDICARE, BC ==
[2017-07-12] MEDS: Sodium Chloride 0.9% 10 ML Syringe FLUSH PRN (11:25)
[2017-07-12 11:43] VITALS: BP 133/51
[2017-07-12] MEDS: Ondansetron 4 MG/2 ML SDV IV ONE (11:48)
[2017-07-12] MEDS: Morphine 4 MG/ML Syringe IVPUSH ONE ×2 (11:48→13:15)
[2017-07-12] MEDS: Morphine 2 MG/ML Syringe ONE (12:18)
[2017-07-12] MEDS: Aspirin 81 MG Tab.Chew PO ONE (12:25)
[2017-07-12] MEDS: cefTRIAXone 1 GM Vial IVPUSH ONE (12:26)
[2017-07-12] MEDS: Iopamidol 755 Mg/ML 100 ML Bottle IVPUSH ONE (13:15)
[2017-07-12] MEDS: Morphine 10 MG/ML Syringe ONE (13:15)
[2017-07-12] MEDS ORDERED: Morphine 10 MG/ML Syringe IVPUSH ONE (15:00)
--- NOTE | 2017-07-12 15:00 | EDM.PDOC ---
Scribed by Celia Kim 07/12/17 1141 for Edenilson Ojeda MD ED HPI GENERAL MEDICAL PROBLEM - General Chief Complaint: Chest Pain Stated Complaint: NOT FEELING GOOD Time Seen by Provider: 07/12/17 11:06 Source of Information: Reports: Patient, RN, RN Notes Reviewed History Limitations: Reports: No Limitations - History of Present Illness INITIAL COMMENTS - FREE TEXT/NARRATIVE: Patient arrives from home by private vehicle with complaint of waking at 5 o' clock this morning with sensation of fever, chills, nausea with chest and back pain and shortness of breath. Denies cough, wheezing or edema. Patient states that he was well yesterday. He had no symptoms until he awoke this morning. No known sick contacts. Denies emesis, urinary symptoms or diarrhea. Onset: Today Duration: Constant Quality: Reports: Ache Severity: Severe Improves with: Reports: None Worsens with: Reports: None Associated Symptoms: Reports: No Other Symptoms Chest Pain Score (Numeric/FACES): 8 - Related Data Allergies Allergy/AdvReac Type Severity Reaction Status Date / Time bee venom protein (honey bee) Allergy Anaphylactic Verified 07/12/17 11:01 Shock naproxen Allergy Hives Verified 07/12/17 11:01 nut - unspecified Allergy Hives Verified 07/12/17 11:01 propoxyphene Allergy Hives Verified 07/12/17 11:01 Home Meds: Home Meds EPINEPHrine [Epipen 2-Anthony] 0.3 mg IM ASDIRECTED PRN 01/10/14 [History] Fish Oil/[place]-3 Fatty Acids [Fish Oil 1,000 MG] 1 cap PO DAILY 01/10/14 [ History] Multivitamin [Multi-Vitamin Daily] 1 tab PO DAILY 01/10/14 [History] Omeprazole [Prilosec] 20 mg PO BEDTIME PRN 01/10/14 [History] Rosuvastatin [Crestor] 40 mg PO DAILY 01/10/14 [History] Sildenafil [Viagra] 100 mg PO ASDIRECTED PRN 01/10/14 [History] Fluocinolone Acetonide [Synalar 0.025% Cream] 15 gm .XX ASDIRECTED PRN 01/16/14 [History] Jxrbrkzk-Xcvcyjn-Ycjp 149-Hyal [Glucosamine Chondroitin Complx] 1 each PO DAILY 01/16/14 [History] Warfarin [Coumadin] 5 mg PO ASDIRECTED 07/14/16 [History] oxyCODONE HCl/Acetaminophen [oxyCODONE-Acetaminophen 5-325] 1 tab PO BID PRN 05/27 [History] Aspirin 81 mg PO DAILY tab.chew 07/15/16 [Rx] Methimazole 5 mg PO DAILY 07/16/16 [History] Nitroglycerin [Nitrostat] 0.4 mg SL ASDIRECTED PRN 07/17/16 [History] Cranberry 4,200 mg PO DAILY 09/03/16 [History] Gabapentin [Neurontin] 600 mg PO TID 11/19/16 [History] Acetaminophen 1,000 mg PO Q6HR PRN 06/09/17 [History] Magnesium Oxide 250 mg PO DAILY 06/09/17 [History] Metoprolol Tartrate 50 mg PO DAILY 06/09/17 [History] Pantoprazole Sodium 40 mg PO BID 06/09/17 [History] LORazepam [Ativan] 1 mg PO BID PRN 06/21/17 [History] Docusate Sodium [Colace] 100 mg PO BID 07/06/17 [History] Isosorbide Mononitrate [Imdur] 30 mg PO DAILY 07/06/17 [History] Furosemide [Lasix] 20 mg PO DAILY 07/12/17 [History] Past Medical History HEENT History: Reports: Impaired Vision Cardiovascular History: Reports: Afib, Angina, CAD, High Cholesterol, Hypertension, Pacemaker, Stents Respiratory History: Reports: None Gastrointestinal History: Reports: GERD Genitourinary History: Reports: None Musculoskeletal History: Reports: Other (See Below) Other Musculoskeletal History: hx rib fx, stenosis Neurological History: Reports: None Psychiatric History: Reports: None Endocrine/Metabolic History: Reports: Hyperthyroidism Hematologic History: Reports: None Immunologic History: Reports: None Oncologic (Cancer) History: Reports: None Dermatologic History: Reports: None - Infectious Disease History Infectious Disease History: Reports: Chicken Pox, Measles, Mumps - Past Surgical History Head Surgeries/Procedures: Reports: None Cardiovascular Surgical History: Reports: Coronary Artery Stent, Pacer GI Surgical History: Reports: Appendectomy Musculoskeletal Surgical History: Reports: Other (See Below) (stenosis) Social & Family History - Family History Family Medical History: Noncontributory Cardiac: Reports: CAD - Tobacco Use Smoking Status *Q: Former Smoker Tobacco Use Within Last Twelve Months: Cigarettes Used Tobacco, but Quit: Yes - Caffeine Use Caffeine Use: Reports: Coffee - Living Situation & Occupation Living situation: Reports: , with Spouse Occupation: Retired ED ROS GENERAL - Review of Systems Review Of Systems: ROS reveals no pertinent complaints other than HPI. ED EXAM, GENERAL - Physical Exam Exam: See Below Exam Limited By: No Limitations General Appearance: Alert, WD/WN, No Apparent Distress, Obese, Other (acutely ill but non-toxic appearing) Eye Exam: Bilateral Eye: EOMI, PERRL Ears: Normal External Exam, Hearing Grossly Normal Nose: Normal Inspection, Normal Mucosa, No Blood Throat/Mouth: Normal Inspection, Normal Lips, Normal Teeth, Normal Gums, Normal Oropharynx, Normal Voice, No Airway Compromise Head: Atraumatic, Normocephalic Neck: Normal Inspection, Supple, Non-Tender, Full Range of Motion. No: Lymphadenopathy (L), Lymphadenopathy (R) Respiratory/Chest: No Respiratory Distress, No Accessory Muscle Use, Chest Non- Tender, Decreased Breath Sounds, Crackles (Rt base). No: Wheezing Cardiovascular: Regular Rate, Rhythm, No Edema, No JVD GI/Abdominal: Normal Bowel Sounds, Soft, Non-Tender, No Distention, Other ( benign obese abdomen). No: Guarding, Rigid, Rebound (Male) Exam: Deferred Rectal (Males) Exam: Deferred Back Exam: No: CVA Tenderness (L), CVA Tenderness (R), Vertebral Tenderness Extremities: Normal Inspection, Normal Range of Motion, Non-Tender, Normal Capillary Refill, No Pedal Edema Neurological: Alert, Oriented, CN II-XII Intact, Normal Cognition, Normal Gait, No Motor/Sensory Deficits Psychiatric: Anxious Skin Exam: Warm, Dry, Intact, No Rash, Other (generalized "flushed" appearance) EKG INTERPRETATION EKG Date: 07/12/17 Time: 11:03 Rhythm: Other (paced rhythm) Rate (Beats/Min): 70 Comparison: No Change Course - Vital Signs Last Recorded V/S: Last Vital Signs Temp 37.4 C 07/12/17 14:26 Pulse 74 07/12/17 10:55 Resp 23 H 07/12/17 10:55 BP 133/51 L 07/12/17 10:55 Pulse Ox 88 L 07/12/17 10:55 - Orders/Labs/Meds Orders: Active Orders 24 hr Category Date Time Status EKG 12 Lead [EKG Documentation Completion] [RC] STAT Care 07/12/17 11:06 Active Peripheral IV Care [] . DIRECTED Care 07/12/17 11:08 Active Chest w Cont [CT] Stat Exams 07/12/17 12:58 Taken CULTURE BLOOD [] Stat Lab 07/12/17 11:20 Received CULTURE BLOOD [] Stat Lab 07/12/17 11:28 Results CULTURE STREP A CONFIRMATION [] Stat Lab 07/12/17 11:51 Results STREP SCRN A RAPID W CULT CONF [] Stat Lab 07/12/17 11:51 Results UA W/MICROSCOPIC [URIN] Stat Lab 07/12/17 12:04 Ordered Sodium Chloride 0.9% [Saline Flush] Med 07/12/17 11:06 Active 10 ml FLUSH ASDIRECTED PRN Blood Culture x2 Reflex Set [OM.PC] Stat Oth 07/12/17 11:07 Ordered Peripheral IV Insertion Adult [OM.PC] Stat Oth 07/12/17 11:06 Ordered Medication Orders Sodium Chloride (Saline Flush) 10 ml FLUSH ASDIRECTED PRN PRN Reason: Keep Vein Open Last Admin: 07/12/17 11:25 Dose: 10 ml Labs: Laboratory Tests 07/12/17 07/12/17 07/12/17 Range/Units 11:20 11:20 11:20 WBC 20.4 H (5.0-10.0) 10^3/uL RBC 4.59 L (4.6-6.2) 10^6/uL Hgb 13.5 L (14.0-18.0) g/dL Hct 40.0 (40.0-54.0) % MCV 87.1 (80-100) fL MCH 29.4 (27.0-34.0) pg MCHC 33.8 (33.0-35.0) g/dL Plt Count 186 (150-450) 10^3/uL Neut % (Auto) 60.6 (42.2-75.2) % Lymph % (Auto) 33.9 (20.5-50.1) % [place] % (Auto) 5.2 (2-8) % Eos % (Auto) 0.1 L (1.0-3.0) % Baso % (Auto) 0.2 (0.0-1.0) % Add Manual Diff Yes Neutrophils % (Manual) 59 (42-75) % Band Neutrophils % 2 % Lymphocytes % (Manual) 30 (20-50) % Monocytes % (Manual) 9 H (2-8) % PT 29.0 H D (9.0-12.0) SEC INR 3.0 H (0.9-1.2) Sodium 133 L (135-145) mmol/L Potassium 3.1 L (3.6-5.0) mmol/L Chloride 91 L (101-111) mmol/L Carbon Dioxide 29.0 (21.0-31.0) mmol/L Anion Gap 16.1 BUN 30 H (7-18) mg/dL Creatinine 1.4 H (0.6-1.3) mg/dL Est Cr Clr Drug Dosing 57.63 mL/min Estimated GFR (MDRD) 49 BUN/Creatinine Ratio 21.42 Glucose 115 H (74-105) mg/dL Lactic Acid (0.5-2.2) mmol/L Calcium 8.8 (8.4-10.2) mg/dl Total Bilirubin 1.0 (0.2-1.0) mg/dL AST 46 H (10-42) IU/L ALT 21 (10-60) IU/L Alkaline Phosphatase 78 (42-121) IU/L Creatine Kinase (26-174) IU/L Creatine Kinase Index (0-2.4) % CK-MB (CK-2) (0.4-4.7) ng/mL Troponin I 0.03 H* (0.00-0.02) ng/ml B-Natriuretic Peptide 221 H (0-100) pg/ml Total Protein 7.0 (6.7-8.2) g/dl Albumin 3.7 (3.2-5.5) g/dl Globulin 3.3 Albumin/Globulin Ratio 1.12 Urine Color (YELLOW) Urine Appearance (CLEAR) Urine pH (5.0-9.0) Ur Specific [place] (1.005-1.030) Urine Protein (NEGATIVE) Urine Glucose (UA) (NEGATIVE) Urine Ketones (NEGATIVE) Urine Occult Blood (NEGATIVE) Urine Nitrite (NEGATIVE) Urine Bilirubin (NEGATIVE) Urine Urobilinogen (0.2-1.0) mg/dL Ur Leukocyte Esterase (NEGATIVE) Urine RBC /HPF Urine WBC (0-5/HPF) /HPF Ur Epithelial Cells /HPF Urine Bacteria (0-FEW/HPF) /HPF Urine Mucus /LPF 07/12/17 07/12/17 07/12/17 Range/Units 11:20 11:20 12:04 WBC (5.0-10.0) 10^3/uL RBC (4.6-6.2) 10^6/uL Hgb (14.0-18.0) g/dL Hct (40.0-54.0) % MCV (80-100) fL MCH (27.0-34.0) pg MCHC (33.0-35.0) g/dL Plt Count (150-450) 10^3/uL Neut % (Auto) (42.2-75.2) % Lymph % (Auto) (20.5-50.1) % [place] % (Auto) (2-8) % Eos % (Auto) (1.0-3.0) % Baso % (Auto) (0.0-1.0) % Add Manual Diff Neutrophils % (Manual) (42-75) % Band Neutrophils % % Lymphocytes % (Manual) (20-50) % Monocytes % (Manual) (2-8) % PT (9.0-12.0) SEC INR (0.9-1.2) Sodium (135-145) mmol/L Potassium (3.6-5.0) mmol/L Chloride (101-111) mmol/L Carbon Dioxide (21.0-31.0) mmol/L Anion Gap BUN (7-18) mg/dL Creatinine (0.6-1.3) mg/dL Est Cr Clr Drug Dosing mL/min Estimated GFR (MDRD) BUN/Creatinine Ratio Glucose (74-105) mg/dL Lactic Acid 2.1 (0.5-2.2) mmol/L Calcium (8.4-10.2) mg/dl Total Bilirubin (0.2-1.0) mg/dL AST (10-42) IU/L ALT (10-60) IU/L Alkaline Phosphatase (42-121) IU/L Creatine Kinase 29 (26-174) IU/L Creatine Kinase Index 2.4 (0-2.4) % CK-MB (CK-2) 0.70 (0.4-4.7) ng/mL Troponin I (0.00-0.02) ng/ml B-Natriuretic Peptide (0-100) pg/ml Total Protein (6.7-8.2) g/dl Albumin (3.2-5.5) g/dl Globulin Albumin/Globulin Ratio Urine Color Yellow (YELLOW) Urine Appearance Clear (CLEAR) Urine pH 6.5 (5.0-9.0) Ur Specific [place] 1.015 (1.005-1.030) Urine Protein 30 H (NEGATIVE) Urine Glucose (UA) Negative (NEGATIVE) Urine Ketones Negative (NEGATIVE) Urine Occult Blood Negative (NEGATIVE) Urine Nitrite Negative (NEGATIVE) Urine Bilirubin Negative (NEGATIVE) Urine Urobilinogen 0.2 (0.2-1.0) mg/dL Ur Leukocyte Esterase Negative (NEGATIVE) Urine RBC Not seen /HPF Urine WBC Not seen (0-5/HPF) /HPF Ur Epithelial Cells Rare /HPF Urine Bacteria Not seen (0-FEW/HPF) /HPF Urine Mucus Not seen /LPF Rapid strep: Negative. Influenza A and B: Negative. Meds: Medications Generic Name Dose Route Start Last Admin Trade Name Freq PRN Reason Stop Dose Admin Sodium Chloride 10 ml 07/12/17 11:06 07/12/17 11:25 Saline Flush FLUSH 10 ml ASDIRECTED PRN Administration Keep Vein Open Discontinued Medications Generic Name Dose Route Start Last Admin Trade Name Freq PRN Reason Stop Dose Admin Aspirin 324 mg 07/12/17 12:06 07/12/17 12:25 Aspirin PO 07/12/17 12:07 324 mg ONETIME ONE Administration Ceftriaxone Sodium 1 gm 07/12/17 12:06 07/12/17 12:26 Rocephin IVPUSH 07/12/17 12:07 1 gm ONETIME ONE Administration Iopamidol 100 ml 07/12/17 13:00 Isovue-370 (76%) IVPUSH 07/12/17 13:01 ONETIME ONE Morphine Sulfate 4 mg 07/12/17 11:42 07/12/17 11:48 Morphine IVPUSH 07/12/17 11:43 4 mg ONETIME ONE Administration Morphine Sulfate Confirm 07/12/17 11:46 07/12/17 12:18 Morphine Administered 07/12/17 11:47 Not Given Dose 4 mg .ROUTE .STK-MED ONE Morphine Sulfate 4 mg 07/12/17 13:04 07/12/17 13:15 Morphine IVPUSH 07/12/17 13:05 4 mg ONETIME ONE Administration Morphine Sulfate Confirm 07/12/17 13:11 07/12/17 13:15 Morphine Administered 07/12/17 13:12 Not Given Dose 10 mg .ROUTE .STK-MED ONE Ondansetron HCl 4 mg 07/12/17 11:41 07/12/17 11:48 Zofran IV 07/12/17 11:42 4 mg ONETIME ONE Administration - Radiology Interpretation Free Text/Narrative:: Chest x-ray: Pulmonary venous congestion. Redemonstration APT window enlargement. Recommend CT chest with IV contrast. See rad report. Chest CT: Large bulky AP window, left mediastinal and hilar mass. Lytic metastasis T2 with mild pathological fracture. Small left pleural effusion, likely malignant. See rad report. 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 DIRECTED 07/12/17 11:20 CULTURE BLOOD [BC] Stat 07/12/17 11:28 CULTURE BLOOD [BC] Stat 07/12/17 11:51 CULTURE STREP A CONFIRMATION [RM] Stat STREP SCRN A RAPID W CULT CONF [RM] Stat 07/12/17 12:04 UA W/MICROSCOPIC [URIN] Stat 07/12/17 12:58 Chest w Cont [CT] Stat - Assessment/Plan Last 24 Hours: My Active Orders 07/12/17 11:06 EKG 12 Lead [EKG Documentation Completion] [RC] STAT Sodium Chloride 0.9% [Saline Flush] 10 ml FLUSH ASDIRECTED PRN Peripheral IV Insertion Adult [OM.PC] Stat 07/12/17 11:07 Blood Culture x2 Reflex Set [OM.PC] Stat 07/12/17 11:08 Peripheral IV Care [RC] . DIRECTED 07/12/17 11:20 CULTURE BLOOD [BC] Stat 07/12/17 11:28 CULTURE BLOOD [BC] Stat 07/12/17 11:51 CULTURE STREP A CONFIRMATION [RM] Stat STREP SCRN A RAPID W CULT CONF [RM] Stat 07/12/17 12:04 UA W/MICROSCOPIC [URIN] Stat 07/12/17 12:58 Chest w Cont [CT] Stat I have read and agree with the documentation that has been completed regarding this visit. By signing this record, I attest that the documentation was completed in my physical presence and is an accurate record of the encounter.
== END 2017-07-12 15:24 ==
LOC: DL.ED 10:46
DX: R09.02 Hypoxemia (principal); R91.8 Other nonspecific abnormal finding of lung field; C79.51 Secondary malignant neoplasm of bone; E78.00 Pure hypercholesterolemia, unspecified; I10 Essential (primary) hypertension; K21.9 Gastro-esophageal reflux disease without esophagitis; Z91.030 Bee allergy status; Z88.6 Allergy status to analgesic agent; Z91.018 Allergy to other foods; Z88.8 Allergy status to other drugs, medicaments and biological substances; Z79.899 Other long term (current) drug therapy; Z79.82 Long term (current) use of aspirin; Z87.891 Personal history of nicotine dependence
CPT/HCPCS: 36415; 71045; 71260; 80053; 81001; 82550; 82553; 83605; 83880; 84484; 85025; 85610; 87040; 87077; 87081; 87186; 87430; 87804; 93005; 93010; 96374; 96375; 96376; 99285; A9270-GY; J0696; J2270; J2405; J7050; Q9967

== ENCOUNTER 2017-07-24 13:36 | Emergency (ER) | payer MEDICARE, BC ==
--- NOTE | 2017-07-24 13:43 | EDM.PDOC ---
ED HPI GENERAL MEDICAL PROBLEM - General Chief Complaint: Respiratory Problem Stated Complaint: LOW OXYGEN Time Seen by Provider: 07/24/17 13:42 Source of Information: Reports: Patient, Family, Old Records, RN, RN Notes Reviewed History Limitations: Reports: No Limitations - History of Present Illness INITIAL COMMENTS - FREE TEXT/NARRATIVE: Pt presents from home by POV with c/o shortness of breath. Pt states he was just discharged from [facility] after having Dx of 'small cell lung cancer' . He states they told him at discharge that he may require oxygen, and to see his doctor or go to the ER if he became short of breath. However, they did not order any oxygen for him. He denies any fever, chills, or any other new symptoms. Pt checked his oxygen at home and found his pulse ox. reading to be 81 % on room air. Onset: Gradual Duration: Constant Location: Reports: Generalized Severity: Severe Improves with: Reports: Rest Worsens with: Reports: Movement Associated Symptoms: Reports: No Other Symptoms - Related Data Allergies Allergy/AdvReac Type Severity Reaction Status Date / Time bee venom protein (honey bee) Allergy Anaphylactic Verified 07/24/17 14:22 Shock naproxen Allergy Hives Verified 07/24/17 14:22 nut - unspecified Allergy Hives Verified 07/24/17 14:22 propoxyphene Allergy Hives Verified 07/24/17 14:22 Home Meds: Home Meds EPINEPHrine [Epipen 2-Anthony] 0.3 mg IM ASDIRECTED PRN 01/10/14 [History] Fish Oil/[place]-3 Fatty Acids [Fish Oil 1,000 MG] 1 cap PO DAILY 01/10/14 [ History] Multivitamin [Multi-Vitamin Daily] 1 tab PO DAILY 01/10/14 [History] Omeprazole [Prilosec] 20 mg PO BEDTIME PRN 01/10/14 [History] Rosuvastatin [Crestor] 40 mg PO DAILY 01/10/14 [History] Sildenafil [Viagra] 100 mg PO ASDIRECTED PRN 01/10/14 [History] Fluocinolone Acetonide [Synalar 0.025% Cream] 15 gm .XX ASDIRECTED PRN 01/16/14 [History] Ltszerea-Rbjxhzn-Ijgx 149-Hyal [Glucosamine Chondroitin Complx] 1 each PO DAILY 01/16/14 [History] Warfarin [Coumadin] 5 mg PO ASDIRECTED 07/14/16 [History] oxyCODONE HCl/Acetaminophen [oxyCODONE-Acetaminophen 5-325] 1 tab PO BID PRN 05/27 [History] Aspirin 81 mg PO DAILY tab.chew 07/15/16 [Rx] Methimazole 5 mg PO DAILY 07/16/16 [History] Nitroglycerin [Nitrostat] 0.4 mg SL ASDIRECTED PRN 07/17/16 [History] Cranberry 4,200 mg PO DAILY 09/03/16 [History] Gabapentin [Neurontin] 600 mg PO TID 11/19/16 [History] Acetaminophen 1,000 mg PO Q6HR PRN 06/09/17 [History] Magnesium Oxide 250 mg PO DAILY 06/09/17 [History] Metoprolol Tartrate 50 mg PO DAILY 06/09/17 [History] Pantoprazole Sodium 40 mg PO BID 06/09/17 [History] LORazepam [Ativan] 1 mg PO BID PRN 06/21/17 [History] Docusate Sodium [Colace] 100 mg PO BID 07/06/17 [History] Isosorbide Mononitrate [Imdur] 30 mg PO DAILY 07/06/17 [History] Furosemide [Lasix] 20 mg PO DAILY 07/12/17 [History] Past Medical History HEENT History: Reports: Impaired Vision Cardiovascular History: Reports: Afib, Angina, CAD, High Cholesterol, Hypertension, Pacemaker, Stents Respiratory History: Reports: None Gastrointestinal History: Reports: GERD Genitourinary History: Reports: None Musculoskeletal History: Reports: Other (See Below) Other Musculoskeletal History: hx rib fx, stenosis Neurological History: Reports: None Psychiatric History: Reports: None Endocrine/Metabolic History: Reports: Hyperthyroidism Hematologic History: Reports: None Immunologic History: Reports: None Oncologic (Cancer) History: Reports: None Dermatologic History: Reports: None - Infectious Disease History Infectious Disease History: Reports: Chicken Pox, Measles, Mumps - Past Surgical History Head Surgeries/Procedures: Reports: None Cardiovascular Surgical History: Reports: Coronary Artery Stent, Pacer GI Surgical History: Reports: Appendectomy Musculoskeletal Surgical History: Reports: Other (See Below) (stenosis) Social & Family History - Family History Family Medical History: Noncontributory Cardiac: Reports: CAD - Tobacco Use Smoking Status *Q: Former Smoker - Caffeine Use Caffeine Use: Reports: Coffee - Alcohol Use Alcohol Use History: Yes Days Per Week of Alcohol Use: 7 Number of Drinks Per Day: 1 (one beer per day) Total Drinks Per Week: 7 Alcohol Use Frequency: Daily - Living Situation & Occupation Living situation: Reports: , with Spouse Occupation: Disabled ED ROS GENERAL - Review of Systems Review Of Systems: ROS reveals no pertinent complaints other than HPI. ED EXAM, GENERAL - Physical Exam Exam: See Below Exam Limited By: No Limitations General Appearance: Alert, No Apparent Distress, Other (chronically ill appearing) Nose: Normal Inspection Throat/Mouth: Normal Voice, No Airway Compromise Head: Atraumatic, Normocephalic Neck: Normal Inspection Respiratory/Chest: No Respiratory Distress, No Accessory Muscle Use, Decreased Breath Sounds, Crackles (course breath sounds throughout B/L lung cantor), Rhonchi (left base) Cardiovascular: Regular Rate, Rhythm, No Edema Extremities: Normal Inspection Neurological: Alert, Oriented, No Motor/Sensory Deficits Psychiatric: Normal Mood Skin Exam: Warm, Dry, Intact, Normal Color Course - Vital Signs Last Recorded V/S: Last Vital Signs Temp 36.4 C 07/24/17 14:10 Pulse 72 07/24/17 14:10 Resp 20 07/24/17 14:10 BP 118/61 07/24/17 14:10 Pulse Ox 88 L 07/24/17 14:10 - Orders/Labs/Meds Orders: Active Orders 24 hr Category Date Time Status RT Supplemental Oxygen Titration [RESPCARE] Stat Oth 07/24/17 14:28 Ordered - Re-Assessments/Exams Free Text/Narrative Re-Assessment/Exam: 07/24/17 14:14 [facility] was consulted and they will provide orders for supplemental home oxygen for the pt. We will supply 24 hours of home oxygen coverage to last until [facility]. Departure - Departure Time of Disposition: 14:10 Disposition: Home, Self-Care 01 Condition: Fair Clinical Impression: Hypoxia, Small cell lung cancer - Discharge Information Instructions: Hypoxia, Home Oxygen Use, Adult Forms: ED Department Discharge Additional Instructions: Use the home oxygen as instructed by the respiratory therapist. Return to ER worse at any time. - My Orders Last 24 Hours: My Active Orders 07/24/17 14:28 RT Supplemental Oxygen Titration [RESPCARE] Stat - Assessment/Plan Last 24 Hours: My Active Orders 07/24/17 14:28 RT Supplemental Oxygen Titration [RESPCARE] Stat
[2017-07-24 14:19] VITALS: BP 118/61
== END 2017-07-24 14:40 | disposition home or self-care (01) ==
LOC: DL.ED 13:36
DX: R09.02 Hypoxemia (principal); C34.90 Malignant neoplasm of unspecified part of unspecified bronchus or lung; E78.00 Pure hypercholesterolemia, unspecified; I10 Essential (primary) hypertension; K21.9 Gastro-esophageal reflux disease without esophagitis; Z91.030 Bee allergy status; Z88.6 Allergy status to analgesic agent; Z91.018 Allergy to other foods; Z88.8 Allergy status to other drugs, medicaments and biological substances; Z79.899 Other long term (current) drug therapy; Z79.82 Long term (current) use of aspirin; Z87.891 Personal history of nicotine dependence
CPT/HCPCS: 99283

== ENCOUNTER 2017-08-22 15:22 | Emergency (ER) | payer MEDICARE, BC ==
[2017-08-22 16:14] LABS: ANION GAP 13.4; CHLORIDE,CL 100 mmol/L (101-111); SODIUM,NA 135 mmol/L (135-145)
[2017-08-22 16:37] VITALS: BP 104/56
[2017-08-22] MEDS: Acetaminophen/oxyCODONE 325-5 MG Tab PO ONE (16:42)
--- NOTE | 2017-08-26 15:23 | EKG ---
08/22/2017 - JUAN A PRUETT - TIME: 3:31 p.m. FINDINGS: Ventricular-paced complexes and nonspecific intraventricular conduction delay. [facility] /[id number]
--- NOTE | 2017-08-27 10:07 | EDM.PDOC ---
Scribed by Celia Kim 08/27/17 1007 for Ki Martinez PA ED HPI GENERAL MEDICAL PROBLEM - General Chief Complaint: Syncope Stated Complaint: FAINTING Time Seen by Provider: 08/22/17 16:09 Source of Information: Reports: Patient, EMS, EMS Notes Reviewed, RN, RN Notes Reviewed History Limitations: Reports: No Limitations - History of Present Illness INITIAL COMMENTS - FREE TEXT/NARRATIVE: Patient presented to ER by [facility]. He is a 76-year-old male who just got out of [facility]. He was in due to cancer. As he was getting home, he passed out while going up the stairs. The patient believes that he may have gotten out of the home too early. He was in [facility] x1 week. Onset: Today Location: Reports: Generalized Severity: Moderate - Related Data Allergies Allergy/AdvReac Type Severity Reaction Status Date / Time bee venom protein (honey bee) Allergy Anaphylactic Verified 07/24/17 14:22 Shock naproxen Allergy Hives Verified 07/24/17 14:22 nut - unspecified Allergy Hives Verified 07/24/17 14:22 propoxyphene Allergy Hives Verified 07/24/17 14:22 Home Meds: Home Meds Multivitamin [Multi-Vitamin Daily] 1 tab PO DAILY 01/10/14 [History] Omeprazole [Prilosec] 20 mg PO BID 01/10/14 [History] oxyCODONE HCl/Acetaminophen [oxyCODONE-Acetaminophen 5-325] 5 mg PO Q4H PRN 05/27 [History] Gabapentin [Neurontin] 600 mg PO TID 11/19/16 [History] Acetaminophen 650 mg PO Q4H PRN 06/09/17 [History] Magnesium Oxide 250 mg PO DAILY 06/09/17 [History] Metoprolol Tartrate 75 mg PO BID 06/09/17 [History] LORazepam [Ativan] 1 mg PO BID PRN 06/21/17 [History] Furosemide [Lasix] 20 mg PO DAILY 07/12/17 [History] Bisacodyl [Dulcolax] 1 supp RECTAL DAILY PRN 08/22/17 [History] Fluticasone Propionate 2 spray NS DAILY 08/22/17 [History] Magnesium Hydroxide [Milk of Magnesia] 30 ml PO DAILY PRN 08/22/17 [History] Morphine [MS Contin] 1 tab PO Q12H 08/22/17 [History] Potassium Chloride 8 meq PO TID 08/22/17 [History] Sennosides/Docusate Sodium [Senna-S] 2 tab PO BID 08/22/17 [History] Past Medical History HEENT History: Reports: Impaired Vision Cardiovascular History: Reports: Afib, Angina, CAD, High Cholesterol, Hypertension, Pacemaker, Stents Respiratory History: Reports: Other (See Below) (lung CA small cell) Gastrointestinal History: Reports: GERD Genitourinary History: Reports: None Musculoskeletal History: Reports: Other (See Below) Other Musculoskeletal History: hx rib fx, stenosis Neurological History: Reports: None Psychiatric History: Reports: None Endocrine/Metabolic History: Reports: Hyperthyroidism Hematologic History: Reports: None Immunologic History: Reports: None Oncologic (Cancer) History: Reports: None Dermatologic History: Reports: None - Infectious Disease History Infectious Disease History: Reports: Chicken Pox, Measles, Mumps - Past Surgical History Head Surgeries/Procedures: Reports: None Cardiovascular Surgical History: Reports: Coronary Artery Stent, Pacer GI Surgical History: Reports: Appendectomy Musculoskeletal Surgical History: Reports: Other (See Below) (stenosis) Social & Family History - Family History Family Medical History: Noncontributory Cardiac: Reports: CAD - Caffeine Use Caffeine Use: Reports: Coffee - Living Situation & Occupation Living situation: Reports: , with Spouse Occupation: Disabled ED ROS GENERAL - Review of Systems Review Of Systems: ROS reveals no pertinent complaints other than HPI. - Physical Exam Exam: See Below Exam Limited By: No Limitations General Appearance: Alert, WD/WN, No Apparent Distress Eye Exam: Bilateral Eye: Normal Inspection Ears: Normal External Exam, Normal Canal, Hearing Grossly Normal, Normal TMs Nose: Normal Inspection, Normal Mucosa, No Blood Throat/Mouth: Normal Inspection, Normal Lips, Normal Teeth, Normal Gums, Normal Oropharynx, Normal Voice, No Airway Compromise Head Exam: Atraumatic, Normocephalic Neck: Normal Inspection, Supple, Non-Tender, Full Range of Motion Respiratory/Chest: No Respiratory Distress, Lungs Clear, Normal Breath Sounds, No Accessory Muscle Use, Chest Non-Tender Cardiovascular: Normal Peripheral Pulses, Regular Rate, Rhythm, No Edema, No Gallop, No JVD, No Murmur, No Rub GI/Abdominal: Normal Bowel Sounds, Soft, Non-Tender, No Organomegaly, No Distention, No Abnormal Bruit, No Mass (Male) Exam: Deferred Rectal (Males) Exam: Deferred Neuro Exam (Abbreviated): Alert, Oriented, CN II-XII Intact, Normal Cognition, Normal Gait, Normal Reflexes, No Motor/Sensory Deficits Back Exam: Normal Inspection, Full Range of Motion, NT Extremities: Other (right hip pain) Psychiatric: Normal Affect, Normal Mood Skin Exam: Warm, Dry, Intact, Normal Color, No Rash Course - Vital Signs Last Recorded V/S: Last Vital Signs Temp 37.3 C 08/22/17 15:25 Pulse 80 08/22/17 15:25 Resp 20 08/22/17 15:25 BP 104/56 L 08/22/17 15:25 Pulse Ox 90 L 08/22/17 15:25 - Orders/Labs/Meds Labs: Laboratory Tests 08/22/17 08/22/17 Range/Units 15:47 15:47 WBC 7.9 (5.0-10.0) 10^3/uL RBC 3.42 L (4.6-6.2) 10^6/uL Hgb 9.7 L D (14.0-18.0) g/dL Hct 30.6 L (40.0-54.0) % MCV 89.5 (80-100) fL MCH 28.4 (27.0-34.0) pg MCHC 31.7 L (33.0-35.0) g/dL Plt Count 354 D (150-450) 10^3/uL Neut % (Auto) 59.5 (42.2-75.2) % Lymph % (Auto) 27.2 (20.5-50.1) % [place] % (Auto) 11.7 H (2-8) % Eos % (Auto) 0.1 L (1.0-3.0) % Baso % (Auto) 1.5 H (0.0-1.0) % Add Manual Diff Yes Neutrophils % (Manual) 61 (42-75) % Band Neutrophils % 8 % Lymphocytes % (Manual) 21 (20-50) % Monocytes % (Manual) 10 H (2-8) % Sodium 135 (135-145) mmol/L Potassium 4.4 (3.6-5.0) mmol/L Chloride 100 L (101-111) mmol/L Carbon Dioxide 26.0 (21.0-31.0) mmol/L Anion Gap 13.4 BUN 9 (7-18) mg/dL Creatinine 1.3 (0.6-1.3) mg/dL Est Cr Clr Drug Dosing TNP Estimated GFR (MDRD) 53 BUN/Creatinine Ratio 6.92 Glucose 93 (74-105) mg/dL Calcium 7.9 L (8.4-10.2) mg/dl Total Bilirubin 0.6 (0.2-1.0) mg/dL AST 19 (10-42) IU/L ALT 11 (10-60) IU/L Alkaline Phosphatase 166 H (42-121) IU/L Troponin I < 0.02 (0.00-0.02) ng/ml Total Protein 6.2 L (6.7-8.2) g/dl Albumin 2.9 L (3.2-5.5) g/dl Globulin 3.3 Albumin/Globulin Ratio 0.88 Meds: Medications Discontinued Medications Generic Name Dose Route Start Last Admin Trade Name Freq PRN Reason Stop Dose Admin Oxycodone/Acetaminophen 1 tab 08/22/17 16:29 08/22/17 16:42 Percocet 325-5 Mg PO 08/22/17 16:30 1 tab ONETIME ONE Administration Departure - Departure Time of Disposition: 17:40 Disposition: DC/Tfer to [facility] Condition: Fair Clinical Impression: Syncope Qualifiers: Syncope type: unspecified Qualified Code(s): R55 - Syncope and collapse - Discharge Information *PRESCRIPTION DRUG MONITORING PROGRAM REVIEWED*: Not Applicable *COPY OF PRESCRIPTION DRUG MONITORING REPORT IN PATIENT STIVEN: Not Applicable Referrals: Maegan Enamorado NP [Primary Care Provider] - Forms: ED Department Discharge Care Plan Goals: The patient and family were advised of the examination, lab and EKG results during the visit. Arrangements were made to transfer the patient back to the [facility] for continued evaluation and further management. The patient was transported by [facility]. I have read and agree with the documentation that has been completed regarding this visit. By signing this record, I attest that the documentation was completed in my physical presence and is an accurate record of the encounter.
== END 2017-08-22 17:40 ==
LOC: DL.ED 15:22
DX: R55 Syncope and collapse (principal); I10 Essential (primary) hypertension; Z91.018 Allergy to other foods; Z88.8 Allergy status to other drugs, medicaments and biological substances; Z91.030 Bee allergy status
CPT/HCPCS: 36415; 80053; 84484; 85025; 93005; 93010; 99285; A9270; 99283